=== PATIENT | female | born 1955 | race Caucasian/White ===

== ENCOUNTER → 2016-07-11 | Outpatient (CLI) | payer BC ==
[~2016-07-11] MED LIST: B-COTAB18 PO; CALC1TAB62 PO; CDN30 PO; ESTR1TAB9 PO; GLUCTAB7 PO; MULT-506 PO; OMEG12006 PO
[2016-07-11 14:07] LABS: ALT/SGPT 21 U/L (12-78); AST/SGOT 13 U/L (15-37); BLOOD UREA NITROGEN 12 mg/dl (7-18); BUN/CREATININE RATIO 13.3 (10-20); CALCIUM 8.9 mg/dl (8.5-10.1); CARBON DIOXIDE 27 mmol/L (21-32); CHLORIDE 101 mmol/L (98-107); CHOLESTEROL 163 mg/dl (0-200); CREATININE 0.87 mg/dl (0.60-1.20); GLUCOSE 83 mg/dl (70-99); POTASSIUM 3.8 mmol/L (3.5-5.1); SODIUM 136 mmol/L (136-145)
[2016-07-11 14:08] LABS: ALB/GLOB RATIO 1.1 (0.9-2); ALKALINE PHOSPHATASE 46 U/L (45-117); CHOLESTEROL/HDL RATIO 2.5; HDL CHOLESTEROL 65 mg/dl; LDL CHOLESTEROL CALCULATED 89 mg/dl; TRIGLYCERIDES 45 mg/dl (0-150); VERY LOW DENSITY LIPOPROT CALC 9 mg/dl
== END | disposition home or self-care (01) ==
LOC: C.LABBC 10:53
PROVIDERS: ATTEND Family Medicine
DX: Z11.59 Encounter for screening for other viral diseases (principal); Z13.220 Encounter for screening for lipoid disorders; K58.9 Irritable bowel syndrome, unspecified

== ENCOUNTER → 2016-10-26 | Outpatient (CLI) | payer BC ==
[~2016-10-26] MED LIST changes: +CHOL1000 PO
--- NOTE | 2016-10-27 08:00 | MAMMOGRAPHY REPORT ---
BILATERAL DIGITAL SCREENING MAMMOGRAM WITH CAD: 10/26/2016 CLINICAL HISTORY: Routine screening. Patient has no complaints. TECHNIQUE: Current study was also evaluated with a Computer Aided Detection (CAD) system. Bilateral CC and MLO views were obtained. COMPARISON: Comparison is made to exams dated: 10/21/2015 mammogram, 10/19/2014 mammogram, 10/16/2013 m ammogram, 05/30/2011 mammogram - [facility], 12/30/2008, and 12/25/2007. BREAST COMPOSITION: The tissue of both breasts is heterogeneously dense, which may obscure small mas ses. FINDINGS: No suspicious masses, calcifications, or areas of architectural distortion are noted in ei ther breast. There has been no significant interval change compared to prior exams. Bilateral benign -appearing calcifications are not significantly changed. Asymmetry within the right posterior breast on the cc view is stable. IMPRESSION: ACR BI-RADS CATEGORY 2: BENIGN There is no mammographic evidence of malignancy. A 1 year screening mammogram is recommended. The pa tient will receive written notification of the results. Approximately 10% of breast cancers are not detected with mammography. A negative mammographic report should not delay biopsy if a clinically suggestive mass is present. Sonia Agudelo M.D. /:10/26/2016 13:35:18 Lunchroom Attendant: Xiomara Shaver, [facility] letter sent: Normal 1/2 BI-RADS Code: ACR BI-RADS Category 2: Benign
== END | disposition home or self-care (01) ==
LOC: C.MAMM 13:16
PROVIDERS: ATTEND Obstetrics & Gynecology
DX: Z12.31 Encounter for screening mammogram for malignant neoplasm of breast (principal)

== ENCOUNTER → 2017-01-23 | Outpatient (CLI) | payer BC | END | disposition home or self-care (01) | LOC: C.PAPS 16:50 | PROVIDERS: ATTEND Obstetrics & Gynecology | DX: Z01.419 Encounter for gynecological examination (general) (routine) without abnormal findings (principal); Z90.710 Acquired absence of both cervix and uterus ==

== ENCOUNTER 2017-02-12 14:42 | Inpatient (IN) | payer BC ==
[~2017-02-12] VITALS: Ht 160 cm; Wt 63.5 kg
[~2017-02-12 14:42] MED LIST changes: -CHOL1000 PO
[2017-02-12] MEDS ORDERED: SODIUM CHLORIDE 0.9% 1000ML 1,000 ML IV STA (15:06)
[2017-02-12] MEDS ORDERED: CHOL1000 PO (15:33)
--- NOTE | 2017-02-12 15:36 | EMERGENCY ROOM VISIT NOTE ---
History Report prepared by Jeyson: Sharita Wong Under the Supervision of: Dr. Jamal Ji D.O. First contact with patient: 15:01 Chief Complaint: CARDIAC ASSESSMENT Stated Complaint: VERY LOW PULSE RATE, FEEL HEART BEATING,SOB Nursing Triage Summary: Patient ambulatory to triage, slowly, holding onto the esparza, states "I have been having episodes of being able to hear and feel my heart beat. I have been monitoring my pulse and BP. My pulse is consistently and abnormally low. My blood pressure has been up and down, not consistent at all. I used to see Dr. Honeycutt and I tried to call to get an appointment. They referred me here to the ED when I explained my symptoms to them. I get lightheaded, dizzy and short of breath with the symptoms. I never have had pain with this though." reports that she has had symptoms for several weeks but has been putting them off. History of Present Illness The patient is a 61 year old female who presents to the Emergency Room with complaints of intermittent dizziness and lightheadedness over the past six days. The patient reports that over the past several days she has been experiencing heart palpitations, nausea, shortness of breath, lightheadedness, and dizziness intermittently. She states that she began monitoring her heart rate, but states that it has been consistently lower than normal. The patient states that she consulted her PCP's office today and was instructed to come to the emergency department for further evaluation and treatment by the triage nurse. She states that she takes an estrogen hormone replacement for the past 15 years. She denies any smoking or drinking. The patient denies following with cardiology in the past. She denies any recent rash or tick bites. The patient states that she has noticed her symptoms most with exertion. Source of History: patient Onset: past six days Position: other (global) Quality: other (dizziness and lightheadedness) Timing: intermittent Modifying Factors (Worsening): exertion Associated Symptoms: + SOB, + nausea Note: Associated Symptoms: palpitations Review of Systems See HPI for pertinent positives & negatives. A total of 10 systems reviewed and were otherwise negative. Past Medical & Surgical Medical Problems: (1) No chronic problems Family History No pertinent family history stated. Social History Smoking Status: Former Smoker Alcohol Use: none Drug Use: marijuana Marital Status: Housing Status: lives with family Occupation Status: retired Current/Historical Medications Scheduled B-Complex Vitamins (Vitamin B Complex), 1 TAB PO 3XWK Calcium & Phosphorus W/ Vitami (Calcium), 1 TAB PO DAILY Cholecalciferol (Vitamin D3), 1,000 INTER.UNIT PO DAILY Estradiol & Norethindrone Acet (Estradiol/Norethindrone A), 1 TAB PO DAILY Gfzummcyopj-Vqvqlitlcbc-Eah C- (Glucosamine Chondroitin), 1 TAB PO BID Multivitamin (Multivitamin), 1 TAB PO DAILY Beaumont-3 Fatty Acids (Be[place]umont 3), 2 CAP PO DAILY Allergies Coded Allergies: No Known Allergies (Unverified , 02/12/17) Physical Exam Vital Signs Date Time Temp Pulse Resp B/P (MAP) Pulse Ox O2 Delivery O2 Flow Rate FiO2 02/12/17 16:27 41 16 97 02/12/17 16:12 41 17 99 02/12/17 16:09 145/66 02/12/17 15:57 44 13 99 02/12/17 15:42 43 17 100 02/12/17 15:37 44 02/12/17 15:32 139/53 02/12/17 15:27 41 21 100 02/12/17 15:18 40 02/12/17 15:15 164/73 02/12/17 15:12 43 17 100 02/12/17 15:06 Room Air 02/12/17 14:56 100 Room Air 02/12/17 14:52 37.1 46 20 172/71 100 Room Air Physical Exam GENERAL: Patient is awake, alert, and in no acute distress. Patient is resting comfortably and showing no signs of anxiety EYES: The conjunctivae are clear. The pupils are round and reactive. EARS, NOSE, MOUTH AND THROAT: The nose is without any evidence of any deformity. Mucous membranes are moist tongue is midline NECK: The neck is nontender and supple. RESPIRATORY: Normal respiratory effort is noted there is no evidence of wheezing rhonchi or rales CARDIOVASCULAR: Bradycardic rate noted to auscultation, no murmurs noted to auscultation GASTROINTESTINAL: The abdomen is soft. Bowel sounds are present in all quadrants. Abdomen is nontender MUSCULOSKELETAL/EXTREMITIES: There is no evidence of gross deformity full range of motion is noted in the hips and shoulders SKIN: There is no obvious evidence of any rash. There are no petechiae, pallor or cyanosis noted. NEUROLOGIC: Patient is awake alert and oriented x3 strength is symmetric patellar reflexes are 2+ bilaterally Medical Decision & Procedures ER Provider Diagnostic Interpretation: X-ray results as stated below per interpretation by me and the radiologist. SINGLE VIEW CHEST CLINICAL HISTORY: Generalized abdominal pain. FINDINGS: An AP, portable, upright chest radiograph is compared to study dated 11/22/2015. Correlation is made with chest CT dated 05/19/2014. The examination is degraded by portable technique and patient rotation. The heart is top normal for projection. Chronic interstitial thickening and mild nodularity is similar to previous. No airspace consolidation, large pleural effusion, or pneumothorax is seen. The skeletal structures are osteopenic. The bony thorax is grossly intact. IMPRESSION: No acute cardiopulmonary abnormality. Electronically signed by: Olayinka Castellano M.D. 02/12/2017 3:34 PM Dictated Date/Time: 02/12/2017 3:32 PM Laboratory Results 02/12/17 15:19 Red Blood Count 3.93, Mean Corpuscular Volume 93.9, Mean Corpuscular Hemoglobin 32.6, Mean Corpuscular Hemoglobin Concent 34.7, Mean Platelet Volume 10.1, Neutrophils (%) (Auto) 55.3, Lymphocytes (%) (Auto) 30.4, Monocytes (%) (Auto) 11.1, Eosinophils (%) (Auto) 2.3, Basophils (%) (Auto) 0.7, Neutrophils # (Auto ) 4.71, Lymphocytes # (Auto) 2.59, Monocytes # (Auto) 0.95, Eosinophils # (Auto ) 0.20, Basophils # (Auto) 0.06 02/12/17 15:19 Test 02/12/17 15:19 White Blood Count 8.53 K/uL (4.8-10.8) Red Blood Count 3.93 M/uL (4.2-5.4) Hemoglobin 12.8 g/dL (12.0-16.0) Hematocrit 36.9 % (37-47) Mean Corpuscular Volume 93.9 fL (80-100) Mean Corpuscular Hemoglobin 32.6 pg (25-34) Mean Corpuscular Hemoglobin Concent 34.7 g/dl (32-36) Platelet Count 248 K/uL (130-400) Mean Platelet Volume 10.1 fL (7.4-10.4) Neutrophils (%) (Auto) 55.3 % Lymphocytes (%) (Auto) 30.4 % Monocytes (%) (Auto) 11.1 % Eosinophils (%) (Auto) 2.3 % Basophils (%) (Auto) 0.7 % Neutrophils # (Auto) 4.71 K/uL (1.4-6.5) Lymphocytes # (Auto) 2.59 K/uL (1.2-3.4) Monocytes # (Auto) 0.95 K/uL (0.11-0.59) Eosinophils # (Auto) 0.20 K/uL (0-0.5) Basophils # (Auto) 0.06 K/uL (0-0.2) RDW Standard Deviation 42.6 fL (36.4-46.3) RDW Coefficient of Variation 12.5 % (11.5-14.5) Immature Granulocyte % (Auto) 0.2 % Immature Granulocyte # (Auto) 0.02 K/uL (0.00-0.02) Prothrombin Time 10.6 SECONDS (9.0-12.0) Prothromb Time International Ratio 1.0 (0.9-1.1) Activated Partial Thromboplast Time 24.7 SECONDS (21.0-31.0) Partial Thromboplastin Ratio 1.0 Anion Gap 8.0 mmol/L (3-11) Est Creatinine Clear Calc Drug Dose 59.8 ml/min Estimated GFR () 81.0 Estimated GFR (Non- 69.9 BUN/Creatinine Ratio 10.0 (10-20) Calcium Level 9.0 mg/dl (8.5-10.1) Magnesium Level 2.3 mg/dl (1.8-2.4) Total Bilirubin 0.3 mg/dl (0.2-1) Direct Bilirubin 0.1 mg/dl (0-0.2) Aspartate Amino Transf (AST/SGOT) 17 U/L (15-37) Alanine Aminotransferase (ALT/SGPT) 30 U/L (12-78) Alkaline Phosphatase 59 U/L (45-117) Troponin I 0.042 ng/ml (0-0.045) Total Protein 7.6 gm/dl (6.4-8.2) Albumin 4.0 gm/dl (3.4-5.0) Lipase 132 U/L (73-393) Thyroid Stimulating Hormone (TSH) 4.130 uIu/ml (0.300-4.500) Free Thyroxine 1.02 ng/dl (0.80-1.60) Lyme Disease IgG Antibody NEG (NEG) Lyme Disease IgM Antibody NEG (NEG) Laboratory results per my review. Medications Administered Medications (Trade) Dose Ordered Sig/Maye Route Start Time Stop Time Status Last Admin Dose Admin Sodium Chloride 1,000 ml @ 999 mls/hr Q1H1M STAT IV 02/12/17 15:06 02/12/17 16:06 DC 02/12/17 15:06 999 MLS/HR ECG Indication: palpitations Rate (beats per minute): 42 Rhythm: other (3rd degree heart block) Findings: RBBB (underlying pattern noted), other (no PVCs) Comparison ECG Date: 05/19/12 Change: When compared to EKG done on 05/19/12, changes are new. ED Course 1506: The patient was evaluated in room B4A. A complete history and physical examination were performed. Ordered Sodium Chloride 1000 ml @ 999 mls/hr IV. 1518: I discussed the patients case with Dr. Gil, Cardiology. He is going to come down to evaluate the patient in the department. 1526: I reevaluated the patient and she is doing well. I told her that Dr. Gil from Cardiology would be in to evaluate her. 1625:cc Medical Decision Differential diagnosis: Etiologies such as premature contractions, electrolyte abnormality, cardiac dysrhythmia, thyroid dysfunction, pulmonary embolism, infection, gastrointestinal, as well as others were entertained. Nursing notes reviewed. The patient is a 61-year-old female who presented to the emergency department for an evaluation of palpitations and dizziness upon standing. The patient was found to have third-degree heart block initially. She also had episodes of second-degree heart block type II while she was in the emergency department. The patient is very symptomatic with this rhythm and became orthostatic upon standing. The patient was treated with IV fluids in the emergency department. I discussed the patient's case with the on-call [facility] panel assembler. I also discussed his case with the on-call [facility] hospitalist. I discussed the patient's laboratory and radiographic studies with her. At this time her irregular rhythm appears to be continued and persistent. It is likely she will require a pacemaker at this rhythm does not resolve without intervention. I discussed this with the patient and she was agreeable to further management by the inpatient team. She did not require any atropine or pacing while she was in the emergency department. Medication Reconcilliation Current Medication List: was personally reviewed by me Blood Pressure Screening Patient's blood pressure: Elevated blood pressure Blood pressure disposition: Elevated BP felt to be situational, Did not require urgent referral Consults Time Called: 1510 Consulting Physician: Dr. Gil, Cardiology Returned Call: 1518 I discussed the patients case with Dr. Gil, Cardiology. He is going to come down to evaluate the patient in the department. Additional Consults: Time Called: 1620 Consulted Physician: CAROLINA Willis Returned Call: 1627 Additional Comments: I discussed the patient's case with CAROLINA Willis. He is going to evaluate the patient for further treatment. Impression Primary Impression: Third degree heart block Additional Impressions: Orthostatic hypotension Palpitations Scribe Attestation The scribe's documentation has been prepared under my direction and personally reviewed by me in its entirety. I confirm that the note above accurately reflects all work, treatment, procedures, and medical decision making performed by me. Departure Information Referrals No Doctor, Assigned (PCP) Patient Instructions My [facility] Problem Qualifiers
[2017-02-12 15:42] LABS: PROTHROMBIN TIME (PATIENT) 10.6 SECONDS (9.0-12.0)
[2017-02-12 15:49] LABS: BASO % 0.7 %; BASO ABS # 0.06 K/uL (0-0.2); COMPLETE YES; EOS % 2.3 %; HEMATOCRIT 36.9 % (37-47); IG% 0.2 %; LYMPH % 30.4 %; LYMPH ABS # 2.59 K/uL (1.2-3.4); MEAN CELL VOLUME 93.9 fL (80-100); MEAN CORPUSCULAR HEMOGLOBIN 32.6 pg (25-34); MEAN CORPUSCULAR HGB CONC 34.7 g/dl (32-36); MEAN PLATELET VOLUME 10.1 fL (7.4-10.4); MONO % 11.1 %; NEUT % 55.3 %; PLATELET COUNT 248 K/uL (130-400); RED BLOOD COUNT 3.93 M/uL (4.2-5.4); WHITE BLOOD COUNT 8.53 K/uL (4.8-10.8)
[2017-02-12 15:54] LABS: CREATININE 0.88 mg/dl (0.60-1.20); MAGNESIUM 2.3 mg/dl (1.8-2.4); POTASSIUM 3.6 mmol/L (3.5-5.1)
[2017-02-12 16:03] LABS: THYROID STIMULATING HORMONE 4.13 uIu/ml (0.300-4.500)
--- NOTE | 2017-02-12 16:20 | Cardiology Consultation ---
Cardiology Consultation Date of Consultation: Feb 12, 2017. Requesting Physician: Garrison Reason for Consultation: heart block History of Present Illness The patient is a 61-year-old woman without a known cardiac history who has been experiencing exertional symptoms for several weeks. Patient states that approximately 2 weeks ago she had several days where she had some difficulty with activity. This was manifest primarily by sense of dizziness and dyspnea. She also had an element of fatigue. This was not as severe at rest. She is accustomed to using a blood pressure cuff at home and did notice that her pulse was generally in the 40s during that period of time. The symptoms eventually resolved and for approximately 2 weeks she felt well. Her heart rate also had returned to normal based on her home monitoring. More recently however she has had return of the symptoms along with prominent fatigue. She states that in the morning she is quite fatigued and has some difficulty getting started. With ambulation and certainly with activity such as at ascending stairs or carrying objects she is markedly dyspneic and tired. She also has significant dizziness and lightheadedness. She has not suffered a syncopal episode. These episodes are not associated with significant chest discomfort. She has not had significant chest pain. She was somewhat concerned about Takotsubo's cardiomyopathy based on some reading she had done and the fact that her son was involved in a minor car accident several weeks ago. She denies constitutional symptoms such as recent fevers or chills. She has not had recent viral type symptoms or joint pains. She cannot recall the presence of any rashes recently. She states she is generally not been sick since last year when she had a gastrointestinal illness. She does however lives in the [facility]. She has a daughter who has had Lyme disease but she has not been known to have Lyme disease and actually has been checked in the past with normal titers. Past Medical/Surgical History Allergic rhinitis Depression Hyperlipidemia Interval bowel syndrome Past surgical history None Family History Both father and mother had pacemakers at advanced ages. 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 Review of Systems Patient does report increasing eructation recently. All Other Systems: Reviewed and Negative Allergies Coded Allergies: No Known Allergies (Unverified , 02/12/17) Physical Exam Vital Signs Past 12 Hours Date Time Temp Pulse Resp B/P (MAP) Pulse Ox O2 Delivery O2 Flow Rate FiO2 02/12/17 15:37 44 02/12/17 15:18 40 02/12/17 15:06 Room Air 02/12/17 14:56 100 Room Air 02/12/17 14:52 37.1 46 20 172/71 100 Room Air She is alert and oriented x3. Mood affect appear normal. She answered all questions appropriately. HEENT: Sclerae are anicteric. Pupils are equal and reactive to light and accommodation. Extraocular movements were intact. Neuro: Cranial nerves intact Neck: Examination of the submandibular region did not reveal any significant lymphadenopathy. Carotids are palpable bilaterally and free of bruits on auscultation. There was no evidence of jugular venous distention. The thyroid was not enlarged. Lungs: Lungs are clear to auscultation bilaterally. There are no rales wheezes or rhonchi. She has normal respiratory effort without use of accessory muscles. There is normal pulmonary excursion. Cardiac: The rhythm was regular but slow. S1 and S2 were normal. There are no murmurs on examination. The PMI was not markedly displaced on palpation. Abdomen: The abdomen was soft and nontender. Extremities: Patient has bilateral radial pulses that are equal in intensity. There is no evidence cyanosis or clubbing. There was no evidence of significant peripheral edema bilaterally. Skin: There are no rashes noted on examination today. Data Laboratory Results: Last 24 Hours Test 02/12/17 15:19 White Blood Count 8.53 K/uL Red Blood Count 3.93 M/uL Hemoglobin 12.8 g/dL Hematocrit 36.9 % Mean Corpuscular Volume 93.9 fL Mean Corpuscular Hemoglobin 32.6 pg Mean Corpuscular Hemoglobin Concent 34.7 g/dl Platelet Count 248 K/uL Mean Platelet Volume 10.1 fL Neutrophils (%) (Auto) 55.3 % Lymphocytes (%) (Auto) 30.4 % Monocytes (%) (Auto) 11.1 % Eosinophils (%) (Auto) 2.3 % Basophils (%) (Auto) 0.7 % Neutrophils # (Auto) 4.71 K/uL Lymphocytes # (Auto) 2.59 K/uL Monocytes # (Auto) 0.95 K/uL Eosinophils # (Auto) 0.20 K/uL Basophils # (Auto) 0.06 K/uL RDW Standard Deviation 42.6 fL RDW Coefficient of Variation 12.5 % Immature Granulocyte % (Auto) 0.2 % Immature Granulocyte # (Auto) 0.02 K/uL Prothrombin Time 10.6 SECONDS Prothromb Time International Ratio 1.0 Activated Partial Thromboplast Time 24.7 SECONDS Partial Thromboplastin Ratio 1.0 Sodium Level 140 mmol/L Potassium Level 3.6 mmol/L Chloride Level 108 mmol/L Carbon Dioxide Level 24 mmol/L Anion Gap 8.0 mmol/L Blood Urea Nitrogen 9 mg/dl Creatinine 0.88 mg/dl Est Creatinine Clear Calc Drug Dose 59.8 ml/min Estimated GFR () 81.0 Estimated GFR (Non- 69.9 BUN/Creatinine Ratio 10.0 Random Glucose 97 mg/dl Calcium Level 9.0 mg/dl Magnesium Level 2.3 mg/dl Total Bilirubin 0.3 mg/dl Direct Bilirubin 0.1 mg/dl Aspartate Amino Transf (AST/SGOT) 17 U/L Alanine Aminotransferase (ALT/SGPT) 30 U/L Alkaline Phosphatase 59 U/L Troponin I 0.042 ng/ml Total Protein 7.6 gm/dl Albumin 4.0 gm/dl Lipase 132 U/L Thyroid Stimulating Hormone (TSH) 4.130 uIu/ml Free Thyroxine 1.02 ng/dl Imaging: Single-view chest x-ray did not reveal any acute cardiopulmonary abnormalities EKG: Normal sinus rhythm with complete heart block and incomplete right bundle- branch block Telemetry reviewed: Essentially 2-1 conduction Assessment & Plan 1. Complete heart block: Patient's initial EKG demonstrated complete heart block. Her review of her current monitoring suggests a regular rhythm with 2-1 av sergio conduction. She has some mild baseline abnormalities in the QRS with incomplete right bundle branch block. Her history is quite characteristic of progressive conduction disease. The fact that she has difficulty with exercise would also suggest this is infra-Hisian block. She did not have a significant prodrome or other symptoms that are consistent with a diagnosis of acute Lyme carditis and her Lyme titers are negative. Her thyroid tests are also normal. She is not on medical therapy that would cause AV sergio dysfunction. At this point there is not appear to be an obvious reversible cause and I recommended implantation of a permanent pacemaker. Given the stability of her rhythm at this point and the absence of syncope in her history is seem reasonable to monitor her and planned for device implantation tomorrow morning.
[2017-02-12 16:25] LABS: LYME DISEASE AB IGG NEG (NEG); LYME DISEASE AB IGM NEG (NEG)
[2017-02-12] MEDS ORDERED: NITROGLYCERIN 0.4 MG SL PER TAB CHARGE SL PRN (16:45)
[2017-02-12] MEDS ORDERED: ONDANSETRON INJ 2 MG/ML 2 ML VIAL IV PRN (16:45)
[2017-02-12] MEDS ORDERED: ACETAMINOPHEN IV 100 ML IV PRN (16:45)
[2017-02-12] MEDS ORDERED: ACETAMINOPHEN 325 MG TAB PO PRN (16:45)
--- NOTE | 2017-02-12 17:06 | ECHOCARDIOGRAM REPORT ---
*NOTICE TO RECEIVING CONSTITUTION PARTY AGENCY This information is strictly Confidential and protected under [place] law. [place] law prohibits you from making any further disclosure of this information unless further disclosure is expressly permitted by the written consent of the person to whom it pertains or is authorized by law. A general authorization for the release of medical or other information is not sufficient for this purpose. Hospital accepts no responsibility if the information is made available to any other person, INCLUDING THE PATIENT. Interpretation Summary * Name: KHANH BOWEN Study Date: 02/12/2017 04:30 PM BP: 172/71 mmHg * Patient Location: C.EDB HR: 44 * : 1955 (M/d/yyyy) Gender: Female Height: 53 in * Age: 61 yrs Ethnicity: CA Weight: 145 lb * Ordering Physician: Christopher. Gil MD * Performed By: Mounika Bowen * * Reason For Study: HEART BLOCK * BSA: 1.5 m2 * -- Conclusions -- * Left ventricular systolic function is normal. * Limited views were obtained. Procedure Details * Limited views were obtained. Left Ventricle * The left ventricle is grossly normal size. * There is normal left ventricular wall thickness. * Ejection Fraction = >70 %. * Left ventricular systolic function is normal. * The left ventricular wall motion is normal. Right Ventricle * The right ventricle is grossly normal size. Pericardium/Pleural * There is no pericardial effusion. MMode 2D Measurements and Calculations IVSd 1.3 cm IVSs 1.8 cm LVIDd 4.1 cm LVIDs 1.8 cm LVPWd 0.96 cm LVPWs 2.1 cm IVS/LVPW 1.4 FS 55.7 % EDV(Teich) 75.8 ml ESV(Teich) 10.2 ml EF(Teich) 86.6 % EDV(cubed) 70.8 ml ESV(cubed) 6.2 ml EF(cubed) 91.3 % % IVS thick 35.5 % % LVPW thick 116.6 % LV mass(C)d 163.1 grams LV mass(C)dI 109.6 grams/m\S\2 LV mass(C)s 151.5 grams LV mass(C)sI 101.8 grams/m\S\2 SV(Teich) 65.6 ml SI(Teich) 44.1 ml/m\S\2 SV(cubed) 64.6 ml SI(cubed) 43.4 ml/m\S\2 LA dimension 3.6 cm asc Aorta Diam 3.2 cm LVAd ap4 31.6 cm\S\2 LVLd ap4 7.5 cm EDV(MOD-sp4) 111.8 ml EDV(sp4-el) 112.8 ml LVAs ap4 9.8 cm\S\2 LVLs ap4 5.5 cm ESV(MOD-sp4) 15.8 ml ESV(sp4-el) 14.8 ml EF(MOD-sp4) 85.8 % EF(sp4-el) 86.9 % LVAd ap2 24.5 cm\S\2 LVLd ap2 6.6 cm EDV(MOD-sp2) 74.2 ml EDV(sp2-el) 76.6 ml LVAs ap2 9.5 cm\S\2 LVLs ap2 5.2 cm ESV(MOD-sp2) 14.7 ml ESV(sp2-el) 15.0 ml EF(MOD-sp2) 80.2 % EF(sp2-el) 80.4 % LVLd %diff -13.38 % EDV(MOD-bp) 93.9 ml LVLs %diff -6.04 % ESV(MOD-bp) 15.3 ml EF(MOD-bp) 83.7 % SV(MOD-sp4) 96.0 ml SI(MOD-sp4) 64.5 ml/m\S\2 SV(MOD-sp2) 59.5 ml SI(MOD-sp2) 40.0 ml/m\S\2 SV(MOD-bp) 78.6 ml SI(MOD-bp) 52.8 ml/m\S\2 SV(sp4-el) 98.0 ml SI(sp4-el) 65.9 ml/m\S\2 SV(sp2-el) 61.6 ml SI(sp2-el) 41.4 ml/m\S\2
[2017-02-12 17:10] VITALS: Ht 160 cm; Wt 63.5 kg
[2017-02-12 18:59] VITALS: BP 137/66; PULSE 35; TEMP 37; O2SAT 95
[2017-02-12] MEDS: NSS + 20MEQ KCL 1000ML 1,000 ML IV SCH (19:35)
[2017-02-12 23:38] VITALS: BP 120/45; PULSE 35; TEMP 36.9; O2SAT 97
[2017-02-13] VITALS (13 sets, daily range): BP systolic 109–147; BP diastolic 48–85; PULSE 36–76; TEMP 36.5–37.2; O2SAT 93–99
[2017-02-13] MEDS: NSS + 20MEQ KCL 1000ML 1,000 ML IV SCH ×2 (05:34→15:53)
[2017-02-13 06:20] LABS: BASO % 1.7 %; BASO ABS # 0.11 K/uL (0-0.2); COMPLETE YES; HEMATOCRIT 33.7 % (37-47); IG% 0.3 %; LYMPH % 32.6 %; LYMPH ABS # 2.11 K/uL (1.2-3.4); MEAN CELL VOLUME 94.4 fL (80-100); MEAN CORPUSCULAR HEMOGLOBIN 31.7 pg (25-34); MEAN CORPUSCULAR HGB CONC 33.5 g/dl (32-36); MEAN PLATELET VOLUME 9.9 fL (7.4-10.4); MONO % 9.9 %; NEUT % 49.5 %; PLATELET COUNT 185 K/uL (130-400); RED BLOOD COUNT 3.57 M/uL (4.2-5.4); WHITE BLOOD COUNT 6.47 K/uL (4.8-10.8)
[2017-02-13 06:50] LABS: PROTHROMBIN TIME (PATIENT) 11.1 SECONDS (9.0-12.0)
[2017-02-13 06:55] LABS: BUN/CREATININE RATIO 10.8 (10-20); CREATININE 0.67 mg/dl (0.60-1.20); MAGNESIUM 2.2 mg/dl (1.8-2.4)
--- NOTE | 2017-02-13 08:31 | Progress Note ---
Subjective Date of Service: Feb 13, 2017. Subjective Pt evaluation today including: conversation w/ patient, physical exam, chart review, lab review, review of studies, conversation w/ universal branch consultant, review of inpatient medication list doing ok, no dizziness when in bed Problem List Medical Problems: (1) Orthostatic hypotension Status: Acute (2) Palpitations Status: Acute (3) Third degree heart block Status: Acute Review of Systems Constitutional: No fever, No chills, No sweats, No weight loss, No weakness, No fatigue, No problem reported Eyes: No worsening of vision, No eye pain, No redness, No discharge, No diplopia ENT: No hearing loss, No unusual epistaxis, No nasal symptoms, No sore throat, No tinnitus, No dental problems, No trouble swallowing Respiratory: No cough, No sputum, No wheezing, No shortness of breath, No dyspnea on exertion, No dyspnea at rest, No hemoptysis Cardiac: No chest pain, No orthopnea, No PND, No edema, No claudication, No palpitations Abdomen: No pain, No nausea, No vomiting, No diarrhea, No constipation Musculoskeletal: No joint pain, No muscle pain, No swelling, No calf pain Female : No dysuria, No urinary frequency, No hematuria, No incontinence, No abnormal vaginal bleeding, No vaginal discharge Neurologic: No memory loss, No paralysis, No weakness, No numbness/tingling, No vertigo, No balance problems Psychiatric: No depression symptoms, No anhedonism, No anxiety, No insomnia, No substance abuse Heme: No abnormal bleeding/bruising, No clotting problems, No swollen lymph nodes, No night sweats Endo: No fatigue, No excessive thirst, No excessive urination Skin: No rash, No itch, No new/changing skin lesions, No color change, No bleeding Objective Vital Signs Date Time Temp Pulse Resp B/P (MAP) Pulse Ox O2 Delivery O2 Flow Rate FiO2 02/13/17 07:18 36.8 36 22 109/48 (68) 98 Room Air 02/13/17 04:00 Room Air 02/13/17 03:45 37.0 38 22 111/56 (74) 99 Room Air 02/12/17 23:59 Room Air 02/12/17 23:38 36.9 35 22 120/45 (70) 97 Room Air 02/12/17 20:00 Room Air 02/12/17 18:59 37.0 35 18 137/66 (89) 95 Room Air 02/12/17 18:24 37.1 38 12 154/67 99 02/12/17 18:02 38 12 99 02/12/17 18:01 154/67 02/12/17 17:57 38 12 98 02/12/17 17:52 38 15 98 02/12/17 17:47 40 19 98 02/12/17 17:42 38 10 99 02/12/17 17:37 40 20 99 02/12/17 17:32 40 24 171/62 98 02/12/17 17:27 43 14 99 02/12/17 17:22 39 13 99 02/12/17 17:17 38 17 99 02/12/17 17:12 43 19 99 02/12/17 17:10 Room Air 02/12/17 17:07 43 16 98 02/12/17 17:02 43 18 138/66 02/12/17 16:57 43 18 02/12/17 16:42 42 14 99 02/12/17 16:27 41 16 97 02/12/17 16:12 41 17 99 02/12/17 16:09 145/66 02/12/17 15:57 44 13 99 02/12/17 15:42 43 17 100 02/12/17 15:37 44 02/12/17 15:32 139/53 02/12/17 15:27 41 21 100 02/12/17 15:18 40 02/12/17 15:15 164/73 02/12/17 15:12 43 17 100 02/12/17 15:06 Room Air 02/12/17 14:56 100 Room Air 02/12/17 14:52 37.1 46 20 172/71 100 Room Air Physical Exam General Appearance: WD/WN, no apparent distress Eyes: normal inspection, PERRL, EOMI, sclerae normal ENT: normal ENT inspection, hearing grossly normal, pharynx normal Neck: supple, no adenopathy, thyroid normal, no JVD, no carotid bruits, trachea midline Respiratory/Chest: chest non-tender, lungs clear, normal breath sounds, no respiratory distress, no accessory muscle use Cardiovascular: no edema, no gallop, no JVD, no murmur, + bradycardia Abdomen: normal bowel sounds, non tender, soft, no organomegaly, no pulsatile mass Extremities: normal range of motion, non-tender, normal inspection, no pedal edema, no calf tenderness, normal capillary refill, pelvis stable Neurologic/Psychiatric: process control engineer II-XII nml as tested, no motor/sensory deficits, alert, normal mood/affect, oriented x 3 Skin: normal color, warm/dry, no rash Lymphatic: no adenopathy Laboratory Results Last 24 Hours Test 02/12/17 15:19 02/13/17 05:46 White Blood Count 8.53 K/uL 6.47 K/uL Red Blood Count 3.93 M/uL 3.57 M/uL Hemoglobin 12.8 g/dL 11.3 g/dL Hematocrit 36.9 % 33.7 % Mean Corpuscular Volume 93.9 fL 94.4 fL Mean Corpuscular Hemoglobin 32.6 pg 31.7 pg Mean Corpuscular Hemoglobin Concent 34.7 g/dl 33.5 g/dl Platelet Count 248 K/uL 185 K/uL Mean Platelet Volume 10.1 fL 9.9 fL Neutrophils (%) (Auto) 55.3 % 49.5 % Lymphocytes (%) (Auto) 30.4 % 32.6 % Monocytes (%) (Auto) 11.1 % 9.9 % Eosinophils (%) (Auto) 2.3 % 6.0 % Basophils (%) (Auto) 0.7 % 1.7 % Neutrophils # (Auto) 4.71 K/uL 3.20 K/uL Lymphocytes # (Auto) 2.59 K/uL 2.11 K/uL Monocytes # (Auto) 0.95 K/uL 0.64 K/uL Eosinophils # (Auto) 0.20 K/uL 0.39 K/uL Basophils # (Auto) 0.06 K/uL 0.11 K/uL RDW Standard Deviation 42.6 fL 43.1 fL RDW Coefficient of Variation 12.5 % 12.6 % Immature Granulocyte % (Auto) 0.2 % 0.3 % Immature Granulocyte # (Auto) 0.02 K/uL 0.02 K/uL Prothrombin Time 10.6 SECONDS 11.1 SECONDS Prothromb Time International Ratio 1.0 1.0 Activated Partial Thromboplast Time 24.7 SECONDS 26.3 SECONDS Partial Thromboplastin Ratio 1.0 1.0 Sodium Level 140 mmol/L 140 mmol/L Potassium Level 3.6 mmol/L 4.0 mmol/L Chloride Level 108 mmol/L 111 mmol/L Carbon Dioxide Level 24 mmol/L 21 mmol/L Anion Gap 8.0 mmol/L 8.0 mmol/L Blood Urea Nitrogen 9 mg/dl 7 mg/dl Creatinine 0.88 mg/dl 0.67 mg/dl Est Creatinine Clear Calc Drug Dose 59.8 ml/min 77.4 ml/min Estimated GFR () 81.0 108.4 Estimated GFR (Non- 69.9 93.5 BUN/Creatinine Ratio 10.0 10.8 Random Glucose 97 mg/dl 87 mg/dl Calcium Level 9.0 mg/dl 8.0 mg/dl Magnesium Level 2.3 mg/dl 2.2 mg/dl Total Bilirubin 0.3 mg/dl Direct Bilirubin 0.1 mg/dl Aspartate Amino Transf (AST/SGOT) 17 U/L Alanine Aminotransferase (ALT/SGPT) 30 U/L Alkaline Phosphatase 59 U/L Troponin I 0.042 ng/ml Total Protein 7.6 gm/dl Albumin 4.0 gm/dl Lipase 132 U/L Thyroid Stimulating Hormone (TSH) 4.130 uIu/ml Free Thyroxine 1.02 ng/dl Lyme Disease IgG Antibody NEG Lyme Disease IgM Antibody NEG Assessment and Plan 61 year old female admitted on because of intermittent dizziness and lightheadedness over the past six days was found has 3rd degree AVB 3rd degree: cardio on the case, possible need PPM Allergic rhinitis Depression Hyperlipidemia this above condition is stable, continue current meds discussed with pt, answered all questions Continued [facility] stay due to: multiple IV medications needed Discharge planning: home
[2017-02-13] MEDS: CHOLECALCIFEROL 1000 INTER.UNIT TAB PO SCH (09:00)
[2017-02-13] MEDS: VITAMIN B COMPLEX TAB PO SCH (09:00)
[2017-02-13] MEDS: MULTIVITAMIN TAB PO SCH (09:00)
[2017-02-13] MEDS: CALCIUM 600MG + VIT D 400 IU TAB PO SCH (09:00)
[2017-02-13] MEDS ORDERED: ESTRADIOL PO SCH (09:00)
[2017-02-13] MEDS ORDERED: NORETHINDRONE ACET PO SCH (09:00)
[2017-02-13] MEDS ORDERED: [UNRECOGNIZED DRUG - OTHER] PO SCH (09:00)
--- NOTE | 2017-02-13 13:43 | Procedure Note ---
Pre-Mod Sedation Assessment General Date of Moderate Sedation: Feb 13, 2017. Vital Signs: Vital Signs Past 12 Hours Date Time Temp Pulse Resp B/P (MAP) Pulse Ox O2 Delivery O2 Flow Rate FiO2 02/13/17 11:45 36.8 46 18 139/64 (89) 97 02/13/17 08:00 Room Air 02/13/17 07:18 36.8 36 22 109/48 (68) 98 Room Air 02/13/17 04:00 Room Air 02/13/17 03:45 37.0 38 22 111/56 (74) 99 Room Air Review Airway Class: II Pre-Sedation Airway Assessment Oral Cavity: WNL Able to Visualize Vocal Cords: No Short Thick Neck: No Hx of Sleep Apnea: No Smoking Status: Former Smoker Mallampati Classification: Class II ASA Classification: Class III Procedure Planning Contraindications-for Mod Sed: None Yes Notes The planned sedation has been discussed with the patient and consent obtained. I have identified the patient, determined the appropriateness of sedation and have assessed the patient immediately prior to the procedure. All medicine(s) and interventions are by my order.
[2017-02-13] MEDS ORDERED: MIDAZOLAM HCL 5 MG/ML 1 ML VIAL ONE (13:56)
[2017-02-13] MEDS ORDERED: FENTANYL CITRATE INJ 50 MCG/1 ML 2 ML VIAL ONE (13:56)
[2017-02-13] MEDS ORDERED: LIDOCAINE HCL 1% 20 ML VIAL ONE (14:00)
[2017-02-13] MEDS ORDERED: BACITRACIN 50000 UNIT VIAL ONE (14:00)
--- NOTE | 2017-02-13 14:52 | Procedure Note ---
Procedure Note Date of Service Feb 13, 2017. Procedure Note Procedure performed: Implant of dual chamber pacemaker Staff auto body straightener: Jace Gil MD Indication: Complete Heart Block. The patient is a 61-year-old woman who presented to [facility] with symptoms of exertional intolerance and dizziness. She was discovered to have complete heart block. He is felt to be a good candidate for permanent pacemaker due to symptomatic non reversible AV node dysfunction. Dual-chamber device was selected as she is currently in sinus rhythm which to maintain AV synchrony. Procedure in detail: The patient was informed of the risks benefits and alternatives to the intended procedure and she wished to proceed. She was taken to the electrophysiology suite in a fasting state. A preoperative antibiotic had been administered. The patient was monitored electrocardiographically throughout today's procedure and conscious sedation was administered per protocol. The left upper pectoral area is prepped and draped in usual sterile fashion. This area was anesthetized using subcutaneous menstruation of a xylocaine solution. An incision was made at this site and carried down to the prepectoralis fascia using sharp dissection. Electrocautery was also employed for dissection as well as for hemostasis. A device pocket was fashioned tissues above the pectoralis muscle. Subsequent to this maneuver the left axillary vein was accessed using modified Seldinger technique. Sheaths were placed over guidewires at this site to facilitate passage of the pacing leads to the respective chambers under fluoroscopic guidance. This included right atrial and right ventricular leads. Adequate sensing and threshold parameters were obtained prior to Active fixation of the leads to the endocardial surface. The proximal portion leads were then sutured the prepectoral fascia using nonabsorbable suture. The device pocket was irrigated with antibiotic solution. The leads were then attached to the device. The device and leads were then placed in the pocket and pocket was closed in 3 layers of absorbable suture. Steri-Strips and sterile dressing were applied. The device was tested noninvasively prior to occlusion the procedure. The patient tolerated procedure well there no immediate complications. Equipment used: New pulse generator: Xm1 Tank Driver [employer]. Model number A2DR01 serial number [id number] Right atrial lead: Xm1 Tank Driver [employer]. Model 5. 076. Serial number [id number] Right ventricular lead: Xm1 Tank Driver [employer]. Model 5. 076. Serial number [id number] Measured data: Right atrial lead: P-waves measured 2.4 mV. Pacing threshold was 1 volt at 0.4 milliseconds with a pacing impedance of 621 Ohms Right ventricular lead: R-waves measured 10.6 mV pacing threshold was 0.8 volts at 0.4 milliseconds with a pacing impedance of 928 Ohms Impression: Successful implantation of dual-chamber permanent pacemaker
--- NOTE | 2017-02-13 15:52 | History and Physical ---
History & Physical Date & Time of Service: Feb 13, 2017 at 15:52. The patient was seen and examined on 02/12/17. Chief Complaint: Third Degree Heart Block Primary Care Physician: No Doctor, Assigned History of Present Illness Source: patient, hospital records The patient is a 61-year-old female who presents emergency department with intermittent dizziness, lightheadedness, heart palpitations, nausea, and shortness of breath over the past 6 days. She began to monitor her heart rate, and reports that it been considerably lower than normal. Her PCP advised her to come to the emergency department for assessment. His symptoms are worsened with exertion. Family History Noncontributory Social History Smoking Status: Former Smoker Smokeless Tobacco Use: No Alcohol Use: none Drug Use: marijuana Marital Status: Housing status: lives with family Occupational Status: retired Immunizations History of Influenza Vaccine: Unknown History of Tetanus Vaccine?: Unknown History of Pneumococcal: Unknown History of Hepatitis B Vaccine: Unknown Multi-Drug Resistant Organisms History of MDRO: No Allergies Coded Allergies: No Known Allergies (Unverified , 02/12/17) Home Medications Scheduled B-Complex Vitamins (Vitamin B Complex), 1 TAB PO 3XWK Calcium & Phosphorus W/ Vitami (Calcium), 1 TAB PO DAILY Cholecalciferol (Vitamin D3), 1,000 INTER.UNIT PO DAILY Estradiol & Norethindrone Acet (Estradiol/Norethindrone A), 1 TAB PO DAILY Vgtwtgberth-Zvwfuspzbxj-Mhj C- (Glucosamine Chondroitin), 1 TAB PO BID Multivitamin (Multivitamin), 1 TAB PO DAILY [place]-3 Fatty Acids ([place] 3), 2 CAP PO DAILY Review of Systems The patient denies cough, lower extremity swelling, vision change, hearing change, sore throat, fevers, chills, sweats, weight change, fatigue, nausea, vomiting, diarrhea or constipation, abdominal pain, pelvic pain, blood in urine or stool, dysuria, urinary frequency or urgency, headache, memory loss, rash, abnormal bruising or bleeding, imbalance, focal or generalized weakness, numbness or tingling in arms or legs, generalized arthralgias or myalgias, back or neck pain, or night sweats. The review of systems is otherwise negative other than for that already noted above, and at least 10 systems have been reviewed. Physical Exam Vital Signs Date Time Temp Pulse Resp B/P (MAP) Pulse Ox O2 Delivery O2 Flow Rate FiO2 02/13/17 15:45 67 133/84 (100) 02/13/17 15:30 36.7 62 16 134/84 (101) 98 Room Air 02/13/17 14:54 72 16 154/93 (113) 100 Nasal Cannula 3 02/13/17 14:40 74 16 141/85 (103) 100 Nasal Cannula 3 02/13/17 12:00 Room Air 02/13/17 11:45 36.8 46 18 139/64 (89) 97 02/13/17 08:00 Room Air 02/13/17 07:18 36.8 36 22 109/48 (68) 98 Room Air 02/13/17 04:00 Room Air 02/13/17 03:45 37.0 38 22 111/56 (74) 99 Room Air 02/12/17 23:59 Room Air 02/12/17 23:38 36.9 35 22 120/45 (70) 97 Room Air 02/12/17 20:00 Room Air 02/12/17 18:59 37.0 35 18 137/66 (89) 95 Room Air 02/12/17 18:24 37.1 38 12 154/67 99 02/12/17 18:02 38 12 99 02/12/17 18:01 154/67 02/12/17 17:57 38 12 98 02/12/17 17:52 38 15 98 02/12/17 17:47 40 19 98 02/12/17 17:42 38 10 99 02/12/17 17:37 40 20 99 02/12/17 17:32 40 24 171/62 98 02/12/17 17:27 43 14 99 02/12/17 17:22 39 13 99 02/12/17 17:17 38 17 99 02/12/17 17:12 43 19 99 02/12/17 17:10 Room Air 02/12/17 17:07 43 16 98 02/12/17 17:02 43 18 138/66 02/12/17 16:57 43 18 02/12/17 16:42 42 14 99 02/12/17 16:27 41 16 97 02/12/17 16:12 41 17 99 02/12/17 16:09 145/66 02/12/17 15:57 44 13 99 The patient is awake, well-developed and adequately nourished, alert and oriented 3, normocephalic and atraumatic, lying in bed and in no acute distress. HEENT--PERRL, EOMI, mucous membranes and oropharynx normal. Neck--supple, no JVD or bruits, thyroid normal, trachea midline, no adenopathy. Heart--bradycardic, no murmurs, rubs or gallops. Lungs--clear bilaterally with good air movement, no respiratory distress, no accessory muscle use. Abdomen--normal bowel sounds and soft, nontender and nondistended, no hernias or masses, no organomegaly. Extremities--no cyanosis, clubbing or edema. There are good distal pulses b/l. Dermatologic--normal skin turgor, normal color, warm and dry, no abnormal lymph nodes, no rash. Neurologic--cranial nerves II through XII grossly intact. Rheumatologic--normal range of motion, nontender, muscles and joints. Psychiatric--normal affect. Diagnostics Laboratory Results Results Past 24 Hours Test 02/13/17 05:46 Range/Units White Blood Count 6.47 4.8-10.8 K/uL Red Blood Count 3.57 4.2-5.4 M/uL Hemoglobin 11.3 12.0-16.0 g/dL Hematocrit 33.7 37-47 % Mean Corpuscular Volume 94.4 80-100 fL Mean Corpuscular Hemoglobin 31.7 25-34 pg Mean Corpuscular Hemoglobin Concent 33.5 32-36 g/dl Platelet Count 185 130-400 K/uL Mean Platelet Volume 9.9 7.4-10.4 fL Neutrophils (%) (Auto) 49.5 % Lymphocytes (%) (Auto) 32.6 % Monocytes (%) (Auto) 9.9 % Eosinophils (%) (Auto) 6.0 % Basophils (%) (Auto) 1.7 % Neutrophils # (Auto) 3.20 1.4-6.5 K/uL Lymphocytes # (Auto) 2.11 1.2-3.4 K/uL Monocytes # (Auto) 0.64 0.11-0.59 K/uL Eosinophils # (Auto) 0.39 0-0.5 K/uL Basophils # (Auto) 0.11 0-0.2 K/uL RDW Standard Deviation 43.1 36.4-46.3 fL RDW Coefficient of Variation 12.6 11.5-14.5 % Immature Granulocyte % (Auto) 0.3 % Immature Granulocyte # (Auto) 0.02 0.00-0.02 K/uL Prothrombin Time 11.1 9.0-12.0 SECONDS Prothromb Time International Ratio 1.0 0.9-1.1 Activated Partial Thromboplast Time 26.3 21.0-31.0 SECONDS Partial Thromboplastin Ratio 1.0 Sodium Level 140 136-145 mmol/L Potassium Level 4.0 3.5-5.1 mmol/L Chloride Level 111 98-107 mmol/L Carbon Dioxide Level 21 21-32 mmol/L Anion Gap 8.0 3-11 mmol/L Blood Urea Nitrogen 7 7-18 mg/dl Creatinine 0.67 0.60-1.20 mg/dl Est Creatinine Clear Calc Drug Dose 77.4 ml/min Estimated GFR () 108.4 Estimated GFR (Non- 93.5 BUN/Creatinine Ratio 10.8 10-20 Random Glucose 87 70-99 mg/dl Calcium Level 8.0 8.5-10.1 mg/dl Magnesium Level 2.2 1.8-2.4 mg/dl Diagnostic Radiology Patient Name: KHANH SOLIS Unit Number: [id number] Dictated: 02/12/171531 Transcribed: 02/12/171531 EV Printed Date/Time: [~ rep prt dt]/[~ rep prt tm] [~ rep ct labl] - [~ rep ct ivnm] [facility] [place] [address] Dictated: 02/12/171531 Transcribed: 02/12/171531 EV Printed Date/Time: [~ rep prt dt]/[~ rep prt tm] [~ rep ct labl] - [~ rep ct ivnm] SINGLE VIEW CHEST CLINICAL HISTORY: Generalized abdominal pain. FINDINGS: An AP, portable, upright chest radiograph is compared to study dated 11/22/2015. Correlation is made with chest CT dated 05/19/2014. The examination is degraded by portable technique and patient rotation. The heart is top normal for projection. Chronic interstitial thickening and mild nodularity is similar to previous. No airspace consolidation, large pleural effusion, or pneumothorax is seen. The skeletal structures are osteopenic. The bony thorax is grossly intact. IMPRESSION: No acute cardiopulmonary abnormality. Electronically signed by: Olayinka Castellano M.D. 02/12/2017 3:34 PM Dictated Date/Time: 02/12/2017 3:32 PM The status of this report is Signed. Draft = Not yet reviewed or approved by Radiologist. Signed = Reviewed and approved by Radiologist. <AttendingPhy></AttendingPhy> <FamilyPhy>No Doctor, Assigned</FamilyPhy> < PrimaryPhy>No Doctor, Assigned</PrimaryPhy> <UnitNumber>[id number]</UnitNumber> <VisitNumber>[id number]</VisitNumber> <PatientName>KHANH SOLIS</ PatientName> <DateOfBirth>1955</DateOfBirth> <Location>C.EDB</Location> < ServiceDate>02/12/17</ServiceDate> <MNE>ESINDI</MNE> <OrderingPhy>Jamal Ji D.O.</OrderingPhy> <OrderingPhyMNE>f rep ord dr perez</OrderingPhyMNE> <DictatingPhyMNE>f rep dict dr perez</DictatingPhyMNE> <CCListMNE>f rep ct chris</ CCListMNE> <AdmittingPhyMNE>f pt admit dr perez</AdmittingPhyMNE> <AttendingPhyMNE >f pt attend dr perez</AttendingPhyMNE> <ConsultingPhyMNE>f pt consult dr perez</ConsultingPhyMNE> <FamilyPhyMNE>f pt fam dr perez</FamilyPhyMNE> <OtherPhyMNE>f pt other dr perez</OtherPhyMNE> < PrimaryPhyMNE>f pt prim care dr perez</PrimaryPhyMNE> <ReferringPhyMNE>f pt referring dr perez</ReferringPhyMNE> EKG EKG and telemetry monitoring in the ED show intermittent third-degree alternating with second-degree type II heart block with heart rate in the 30s to low 40s Impression Assessment and Plan Third-degree heart block-- The patient will be admitted to telemetry for serial cardiac enzymes, cardiac rhythm monitoring and a 2-D echocardiogram with Dopplers. Place pacer pads on. 2-D echocardiogram with Dopplers performed in the ED by Dr. Gil from cardiology. Nothing by mouth after midnight NSS with KCl 20 mEq at 100 ML's per hour. Patient will likely require pacer placement in the a.m. Activity will be bedrest with bathroom privileges. Consult cardiology. Level of Care Telemetry Advanced Directives Existing Advance Directive: No Existing Living Will: No Existing Power of Masonry Supervisor: No Resuscitation Status FULL RESUSCITATION VTE Prophylaxis VTE Risk Assessment Done? Y/N: Yes Risk Level: Moderate Given or contraindicated: SCD's Social Service Consult None Apply
[2017-02-13] MEDS ORDERED: OXYCODONE HCL IR 5 MG TAB (IMMEDIATE RELEASE) PO PRN (17:00)
[2017-02-13] MEDS ORDERED: OXYCODONE HCL IR 5 MG TAB (IMMEDIATE RELEASE) ONE (18:08)
[2017-02-13] MEDS: CEFAZOLIN IV 1,000 MG in DEXTROSE 5% 50ML 50 ML IV SCH (21:43)
[2017-02-13] MEDS ORDERED: NURSING VERBAL MED ORDER ONE (23:15)
[2017-02-14 03:17] VITALS: BP 124/77; PULSE 62; TEMP 36.8; O2SAT 98
[2017-02-14] MEDS ORDERED: CEFAZOLIN SOD 1000MG/55 ML D5W IV SCH (06:00)
[2017-02-14] MEDS: CEFAZOLIN IV 1,000 MG in DEXTROSE 5% 50ML 50 ML IV SCH (06:12)
--- NOTE | 2017-02-14 06:51 | DIAGNOSTIC IMAGING REPORT ---
CHEST 2 VIEWS ROUTINE CLINICAL HISTORY: 61 years-old Female presenting with EXACT TIME ORDERED Evaluate for pneumothorax and lead placement. TECHNIQUE: PA and lateral views of the chest were obtained. COMPARISON: 02/12/2017. FINDINGS: Left-sided cardiac pacer with leads to the right atrium and right ventricular apex now in place. Cardiomediastinal silhouette normal. Lungs mildly hyperinflated. No focal infiltrate. No pleural effusion or pneumothorax. Osseous structures normal. Upper abdomen normal. IMPRESSION: 1. Interval placement of 2-lead pacer. No pneumothorax. 2. Mild hyperinflation could suggest underlying emphysema. Electronically signed by: Ravinder Kenny M.D. 02/14/2017 6:49 AM Dictated Date/Time: 02/14/2017 6:48 AM
[2017-02-14 07:20] LABS: PARTIAL THROMBOPLASTIN RATIO 1.1
[2017-02-14 07:25] VITALS: BP_SYST 137; BP_SYST 155; BP_DIAS 75; BP_DIAS 90; PULSE 64; PULSE 73; TEMP 36.7; TEMP 36.8; O2SAT 100; O2SAT 99
[2017-02-14 07:25] LABS: BASO % 0.8 %; BASO ABS # 0.07 K/uL (0-0.2); COMPLETE YES; EOS % 3.5 %; HEMATOCRIT 38.8 % (37-47); IG% 0.2 %; LYMPH % 21.3 %; LYMPH ABS # 1.93 K/uL (1.2-3.4); MEAN CELL VOLUME 95.1 fL (80-100); MEAN CORPUSCULAR HEMOGLOBIN 32.8 pg (25-34); MEAN CORPUSCULAR HGB CONC 34.5 g/dl (32-36); MEAN PLATELET VOLUME 10.1 fL (7.4-10.4); NEUT % 64.2 %; PLATELET COUNT 206 K/uL (130-400); RED BLOOD COUNT 4.08 M/uL (4.2-5.4); WHITE BLOOD COUNT 9.04 K/uL (4.8-10.8)
[2017-02-14 07:44] LABS: BUN/CREATININE RATIO 10.5 (10-20); CALCIUM 8.7 mg/dl (8.5-10.1); CREATININE 0.81 mg/dl (0.60-1.20); MAGNESIUM 2.4 mg/dl (1.8-2.4); POTASSIUM 3.9 mmol/L (3.5-5.1)
[2017-02-14 08:51] LABS: URINE APPEARANCE CLEAR (CLEAR); URINE BILIRUBIN NEG (NEG); URINE COLOR YELLOW; URINE NITRITE NEG (NEG); UROBILINOGEN NEG (NEG)
[2017-02-14 08:52] LABS: MANUAL MICROSCOPIC REQUIRED? NO; REVIEW REQ? NO
[2017-02-14] MEDS: CALCIUM 600MG + VIT D 400 IU TAB PO SCH (09:07)
[2017-02-14] MEDS: VITAMIN B COMPLEX TAB PO SCH (09:07)
[2017-02-14] MEDS: CHOLECALCIFEROL 1000 INTER.UNIT TAB PO SCH (09:08)
[2017-02-14] MEDS: MULTIVITAMIN TAB PO SCH (09:08)
--- NOTE | 2017-02-14 09:28 | Cardiology Follow-Up ---
Subjective Date of Service: Feb 14, 2017. Pt evaluation today including: conversation w/ patient, physical exam, chart review, lab review, review of studies, review of inpatient medication list History of Present Illness The patient has this morning. She notices the appreciable difference in her symptoms with implantation of the device. She has been ambulatory to the bathroom and has not have the dizziness or dyspnea. She has minimal discomfort at the implant site currently. Social History Smoking Status: Former Smoker History of Alcohol Use: No Review of Systems Respiratory: No cough, No sputum, No wheezing, No shortness of breath, No dyspnea on exertion, No dyspnea at rest, No hemoptysis Cardiac: No chest pain, No orthopnea, No PND, No edema, No claudication, No palpitations Patient does report increasing eructation recently. Objective Vital Signs Past 12 Hours Date Time Temp Pulse Resp B/P (MAP) Pulse Ox O2 Delivery O2 Flow Rate FiO2 02/14/17 08:59 Room Air 02/14/17 07:25 36.8 64 18 137/75 (95) 100 Room Air 02/14/17 07:25 36.7 73 16 155/90 (111) 99 Room Air 02/14/17 04:00 Room Air 02/14/17 03:17 36.8 62 19 124/77 (93) 98 Room Air 02/13/17 23:59 Room Air 02/13/17 23:30 36.8 69 18 131/77 (95) 97 Room Air Last Recorded Weight-Kilograms: 63.500 Physical Exam She is alert and oriented x3. Mood affect appear normal. She answered all questions appropriately. HEENT: Sclerae are anicteric. Pupils are equal and reactive to light and accommodation. Extraocular movements were intact. Neuro: Cranial nerves intact Chest: Implant site clean dry and intact. Mild ecchymosis at the inferior margin. No drainage. No hematoma.. Data Laboratory Results: Last 24 Hours Test 02/14/17 06:42 02/14/17 07:28 White Blood Count 9.04 K/uL Red Blood Count 4.08 M/uL Hemoglobin 13.4 g/dL Hematocrit 38.8 % Mean Corpuscular Volume 95.1 fL Mean Corpuscular Hemoglobin 32.8 pg Mean Corpuscular Hemoglobin Concent 34.5 g/dl Platelet Count 206 K/uL Mean Platelet Volume 10.1 fL Neutrophils (%) (Auto) 64.2 % Lymphocytes (%) (Auto) 21.3 % Monocytes (%) (Auto) 10.0 % Eosinophils (%) (Auto) 3.5 % Basophils (%) (Auto) 0.8 % Neutrophils # (Auto) 5.80 K/uL Lymphocytes # (Auto) 1.93 K/uL Monocytes # (Auto) 0.90 K/uL Eosinophils # (Auto) 0.32 K/uL Basophils # (Auto) 0.07 K/uL RDW Standard Deviation 43.3 fL RDW Coefficient of Variation 12.6 % Immature Granulocyte % (Auto) 0.2 % Immature Granulocyte # (Auto) 0.02 K/uL Prothrombin Time 11.0 SECONDS Prothromb Time International Ratio 1.0 Activated Partial Thromboplast Time 27.3 SECONDS Partial Thromboplastin Ratio 1.1 Sodium Level 137 mmol/L Potassium Level 3.9 mmol/L Chloride Level 106 mmol/L Carbon Dioxide Level 26 mmol/L Anion Gap 6.0 mmol/L Blood Urea Nitrogen 9 mg/dl Creatinine 0.81 mg/dl Est Creatinine Clear Calc Drug Dose 63.8 ml/min Estimated GFR () 89.6 Estimated GFR (Non- 77.3 BUN/Creatinine Ratio 10.5 Random Glucose 94 mg/dl Calcium Level 8.7 mg/dl Magnesium Level 2.4 mg/dl Urine Color YELLOW Urine Appearance CLEAR Urine pH 7.0 Urine Specific [place] 1.010 Urine Protein NEG Urine Glucose (UA) NEG Urine Ketones NEG Urine Occult Blood NEG Urine Nitrite NEG Urine Bilirubin NEG Urine Urobilinogen NEG Urine Leukocyte Esterase NEG Imaging: Chest x-ray demonstrated stable lead position. No pneumothorax. EKG: A sensed V paced. Telemetry reviewed: No arrhythmias. A complete device interrogation was performed. There is normal sensing on the a lead. No intrinsic R waves were seen. There is normal thresholds on both leads. Normal device function. Assessment and Plan 1. Complete heart block: Unclear etiology. Patient underwent implantation of dual-chamber permanent pacemaker yesterday. No complications. She is feeling well currently. The device appears to be functioning well on her chest x-ray is unremarkable. At this point I feel she is safe for discharge from a cardiac standpoint. I would recommend keeping the wound dry for 1 weeks time and the Steri-Strips intact until follow-up at that time. She should follow-up in the Cardiology Clinic within 1 week for a wound checked. She should refrain from lifting left arm above her shoulder behind her neck for 6 weeks.
[2017-02-14 11:20] VITALS: BP 134/78; PULSE 65; TEMP 36.9; O2SAT 97
--- NOTE | 2017-02-14 12:07 | Discharge Instructions ---
Discharge Instructions Date of Service Feb 14, 2017. Admission Reason for Admission: Third Degree Heart Block Discharge Discharge Diagnosis / Problem: Complete heart block: Discharge Goals Goal(s): Decrease discomfort, Improve function, Increase independence, Improve disease control, Improve nutritional status, Learn about illness, Diagnostic testing, Therapeutic intervention, Prevent Disease Progression, Specific goals Activity Recommendations Activity Limitations: as noted below . Instructions / Follow-Up Instructions / Follow-Up you have complete heart block: s/p implantation of dual-chamber permanent pacemaker follow up with cardiology recommended keeping the wound dry for 1 weeks time and the Steri-Strips intact until follow- up at that time. You need to follow-up in the Cardiology Clinic within 1 week for a wound checked. You should should refrain from lifting left arm above her shoulder behind her neck for 6 weeks. - you need to follow up with your primary care physician in 1 week, - take medication as instructed, never overdose or any misuse, or take with alcohol, because misuse of medicine may cause organ damage or , call your primary care physician if have questions of medicaitons. - call your primary care physician OR go to local emergency room if has any fever/chill, chest pain, shortness of breathing, nausea/vomiting/abdominal pain , facial droop/slurry speech/local weakness, or if has any questions. - fall precaution - diet as instructed - you need to follow up with your subspecialist - you should understand that it is important to follow up the above instruction , and "not following the above instruction" may cause delayed or missed care of your medical conditions which may cause permanent organ damage and even . Current Hospital Diet Patient's current hospital diet: Regular Diet Discharge Diet Recommended Diet: Regular Diet Pending Studies Studies pending at discharge: no Medical Emergencies . Who to Call and When: Medical Emergencies: If at any time you feel your situation is an emergency, please call 911 immediately. . Non-Emergent Contact Non-Emergency issues call your: Primary Care Provider, Airframe Technician . . "Provider Documentation" section prepared by Jovani Adhikari. . VTE Core Measure Inpt VTE Proph given/why not?: SCD's
[2017-02-14 12:30] VITALS: BP 134/78; PULSE 65; TEMP 36.9; O2SAT 97
--- NOTE | 2017-02-14 16:07 | Discharge Summary ---
Discharge Summary Date of Service Feb 14, 2017. Discharge Summary Admission Date: Feb 12, 2017 at 16:41 Discharge Date: Feb 14, 2017 Principal Diagnosis: complete heart block: Problems/Secondary Diagnoses: s/p implantation of dual-chamber permanent pacemaker f Immunizations: Have You Had Influenza Vaccine: Unknown History of Tetanus Vaccine?: Unknown History of Pneumococcal: Unknown History of Hepatitis B Vaccine: Unknown Procedures: complete heart block, S/P permanent pacemaker Consultations: Media Liaison Officer Medication Reconciliation Continued Medications: B-Complex Vitamins (Vitamin B Complex) 1 Tab Tab 1 TAB PO 3XWK Calcium & Phosphorus W/ Vitami (Calcium) 1 Tab Tab 1 TAB PO DAILY Cholecalciferol (Vitamin D3) 1,000 Unit Tab 1000 INTER.UNIT PO DAILY, TAB 3 Refills Estradiol & Norethindrone Acet (Estradiol/Norethindrone A) 1 Tab Tab 1 TAB PO DAILY Kjxigdhfobb-Mheqyognhqx-Pah C- (Glucosamine Chondroitin) 1 Tab Tab 1 TAB PO BID Multivitamin (Multivitamin) Tab 1 TAB PO DAILY, TAB [place]-3 Fatty Acids ([place] 3) 1 Cap Cap 2 CAP PO DAILY Discharge Exam Feeling much better, more energetic no any complaints , denied dizziness Review of Systems: Constitutional: No fever, No chills, No sweats, No weight loss, No weakness , No fatigue, No problem reported Eyes: No worsening of vision, No eye pain, No redness, No discharge, No diplopia, No problem reported ENT: No hearing loss, No unusual epistaxis, No nasal symptoms, No sore throat, No tinnitus, No dental problems, No trouble swallowing, No problem reported Respiratory: No cough, No sputum, No wheezing, No shortness of breath, No dyspnea on exertion, No dyspnea at rest, No hemoptysis, No problem reported Cardiovascular: No chest pain, No orthopnea, No PND, No edema, No claudication, No palpitations, No problem reported Abdomen: No pain, No nausea, No vomiting, No diarrhea, No constipation, No GI bleeding, No problem reported Musculoskeletal: No joint pain, No muscle pain, No swelling, No calf pain, No problem reported Genitourinary - Female: No dysuria, No urinary frequency, No urinary urgency , No urinary incontinence, No urinary retention, No hematuria, No dysmenorrhea, No menorrhagia, No metrorrhagia, No rash, No vaginal bleeding, No vaginal discharge, No vaginal itching, No vulvodynia, No , No problem reported Neurologic: No memory loss, No paralysis, No weakness, No numbness/tingling , No vertigo, No balance problems, No problem reported Endocrine: No fatigue, No excessive thirst, No excessive urination, No problem reported Hematologic / Lymphatic: No abnormal bleeding/bruising, No clotting problems , No swollen lymph nodes, No night sweats, No problem reported Integumentary: No rash, No itch, No new/changing skin lesions, No color change, No bleeding, No problem reported Physical Exam: General Appearance: WD/WN, no apparent distress Eyes: normal inspection, PERRL, EOMI ENT: normal ENT inspection, hearing grossly normal, TMs normal, + pertinent finding (left anterior chest wall pacer in place, incision looks good) Neck: supple, no adenopathy Respiratory/Chest: chest non-tender, lungs clear, normal breath sounds, no respiratory distress, + decreased breath sounds Cardiovascular: regular rate, rhythm, no edema, no gallop, no JVD Abdomen / GI: normal bowel sounds, non tender, soft, no organomegaly, no pulsatile mass Extremities: normal inspection, no calf tenderness, normal capillary refill Neurologic/Psychiatric: grievance manager II-XII nml as tested, no motor/sensory deficits , alert, normal mood/affect, normal reflexes Hospital Course 61 year old female admitted on because of intermittent dizziness and lightheadedness over the past six days was found has 3rd degree AVB 3rd degree: cardio on the case, s/p implantation of dual-chamber permanent pacemaker on 02/13/2017, tolerated well, today has no complaint Allergic rhinitis Depression Hyperlipidemia this above condition is stable, continue current meds Instructions / Follow-Up you have complete heart block: s/p implantation of dual-chamber permanent pacemaker follow up with cardiology recommended keeping the wound dry for 1 weeks time and the Steri-Strips intact until follow- up at that time. You need to follow-up in the Cardiology Clinic within 1 week for a wound checked. You should should refrain from lifting left arm above her shoulder behind her neck for 6 weeks. - you need to follow up with your primary care physician in 1 week, - take medication as instructed, never overdose or any misuse, or take with alcohol, because misuse of medicine may cause organ damage or , call your primary care physician if have questions of medicaitons. - call your primary care physician OR go to local emergency room if has any fever/chill, chest pain, shortness of breathing, nausea/vomiting/abdominal pain , facial droop/slurry speech/local weakness, or if has any questions. - fall precaution - diet as instructed - you need to follow up with your subspecialist - you should understand that it is important to follow up the above instruction , and "not following the above instruction" may cause delayed or missed care of your medical conditions which may cause permanent organ damage and even . Current Hospital Diet Total Time Spent: Greater than 30 minutes This includes examination of the patient, discharge planning, medication reconciliation, and communication with other providers. Discharge Instructions Please refer to the electronic Patient Visit Report (Discharge Instructions) for additional information. Additional Copies To Jace Gil MD
[2017-02-14 18:35] LABS: EHRLICHIA CHAFF IGG AB <1:64 (<1:64); EHRLICHIA CHAFF IGM AB <1:20 (<1:20)
== END 2017-02-14 13:12 | disposition home or self-care (01) | DRG 244 ==
LOC: C.EDB 14:44 → C.2T 16:41 → ENRESERV 17:22
PROVIDERS: ADMIT Hospitalist; ATTEND Hospitalist
PROC: 0JH606Z Insertion of Pacemaker, Dual Chamber into Chest Subcutaneous Tissue and Fascia, Open Approach (ICD-10-PCS; principal; 2017-02-13 14:00)
PROC: 02HK3JZ Insertion of Pacemaker Lead into Right Ventricle, Percutaneous Approach (ICD-10-PCS; principal; 2017-02-13 14:00)
PROC: 02H63JZ Insertion of Pacemaker Lead into Right Atrium, Percutaneous Approach (ICD-10-PCS; principal; 2017-02-13 14:00)
DX: I44.2 Atrioventricular block, complete (principal); I95.1 Orthostatic hypotension; F32.9 Major depressive disorder, single episode, unspecified; J30.9 Allergic rhinitis, unspecified; E78.5 Hyperlipidemia, unspecified; Z87.891 Personal history of nicotine dependence; K58.9 Irritable bowel syndrome, unspecified

== ENCOUNTER → 2017-07-24 | Outpatient (CLI) | payer OTHER ==
[~2017-07-24] MED LIST changes: -CDN30 PO; +CHOL1000 PO
--- NOTE | 2017-07-24 15:46 | DIAGNOSTIC IMAGING REPORT ---
CHEST 2 VIEWS ROUTINE HISTORY: 62 years-old Female R05 Cough acute cough COMPARISON: Chest radiographs 02/14/2017 TECHNIQUE: PA and lateral views of the chest FINDINGS: Hyperinflation with increased lucency of the lungs suggests emphysema. There is no pneumothorax, pleural effusion, focal airspace consolidation or overt pulmonary edema. Cardiomediastinal and hilar silhouettes are within normal limits. Left subclavian pacer is noted with leads unchanged. There is mild levoscoliosis of the upper thoracic spine. Degenerative changes of the spine and shoulders are noted. IMPRESSION: 1. No acute process. 2. Hyperinflation with suggested emphysema. The above report was generated using voice recognition software. It may contain grammatical, syntax or spelling errors. Electronically signed by: Cole Palmer M.D. 07/24/2017 3:45 PM Dictated Date/Time: 07/24/2017 3:43 PM
== END | disposition home or self-care (01) ==
LOC: C.RAD1850 15:26
PROVIDERS: ATTEND Nurse Practitioner Family
DX: R05 Cough (principal)

== ENCOUNTER → 2017-08-21 | Outpatient (CLI) | payer OTHER, BC ==
[2017-08-21 12:28] LABS: BASO % 0.5 %; BASO ABS # 0.04 K/uL (0-0.2); EOS % 2.1 %; EOS ABS # 0.18 K/uL (0-0.5); HEMATOCRIT 38.1 % (37-47); HEMOGLOBIN 12.9 g/dL (12.0-16.0); IG# 0.02 K/uL (0.00-0.02); LYMPH % 21.4 %; LYMPH ABS # 1.81 K/uL (1.2-3.4); MEAN CELL VOLUME 95.5 fL (80-100); MEAN CORPUSCULAR HEMOGLOBIN 32.3 pg (25-34); MEAN CORPUSCULAR HGB CONC 33.9 g/dl (32-36); MONO % 7.3 %; MONO ABS # 0.62 K/uL (0.11-0.59); NEUT % 68.5 %; NEUT ABS # 5.79 K/uL (1.4-6.5); PLATELET COUNT 304 K/uL (130-400); RED CELL DISTRIBUTION WIDTH CV 13.3 % (11.5-14.5); RED CELL DISTRIBUTION WIDTH SD 46.6 fL (36.4-46.3); WHITE BLOOD COUNT 8.46 K/uL (4.8-10.8)
[2017-08-21 12:49] LABS: ALT/SGPT 18 U/L (12-78); AST/SGOT 13 U/L (15-37); BLOOD UREA NITROGEN 12 mg/dl (7-18); CALCIUM 8.9 mg/dl (8.5-10.1); CARBON DIOXIDE 26 mmol/L (21-32); CHOLESTEROL 150 mg/dl (0-200); CREATININE 0.75 mg/dl (0.60-1.20); GLUCOSE 86 mg/dl (70-99); POTASSIUM 3.6 mmol/L (3.5-5.1); SODIUM 135 mmol/L (136-145)
[2017-08-21 12:52] LABS: ALKALINE PHOSPHATASE 52 U/L (45-117); LDL CHOLESTEROL CALCULATED 88 mg/dl; TOTAL PROTEIN 7.6 gm/dl (6.4-8.2)
== END | disposition home or self-care (01) ==
LOC: C.LAB1850 09:51
PROVIDERS: ATTEND Neuromusculoskeletal Medicine & OMM
DX: Z00.00 Encounter for general adult medical examination without abnormal findings (principal)

== ENCOUNTER 2021-07-05 18:43 | Inpatient (IN) ==
[2021-07-05] MEDS ORDERED: SODIUM CHLORIDE 0.9% 1000ML 1,000 ML IV STA (19:00)
[2021-07-05] MEDS ORDERED: ONDANSETRON INJ 2 MG/ML 2 ML VIAL IV STA (19:00)
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
[2021-07-05 19:28] LABS: Hematocrit (blood only) 30.5 % (37-47); Hemoglobin 10.9 g/dL (12.0-16.0); Mean Corpuscular Hemoglobin 32.9 pg (25-34); Mean Corpuscular Hgb Conc 35.7 g/dL (32-36); Mean Corpuscular Volume 92.1 fL (80-100); Mean Platelet Volume 9.6 fL (7.4-10.4); Platelet Count 288 K/uL (130-400); RDW Coefficient of Variation 13.2 % (11.5-14.5); RDW Standard Deviation 44.8 fL (36.4-46.3); Red Blood Count 3.31 M/uL (4.2-5.4)
[2021-07-05 19:33] LABS: iSTAT Creatinine 0.6 mg/dl (0.6-1.3); iSTAT Hemoglobin 12.2 g/dl (12.0-16.0); iSTAT Ionized Calcium 1.12 mmol/l (1.12-1.32); iSTAT Potassium 3.3 mmol/L (3.3-5.0)
[2021-07-05] MEDS ORDERED: MoRPHine SULFATE 2 MG/ML CARP IV STA ×2 (19:44→20:34)
[2021-07-05 19:46] LABS: Alanine Aminotransferase 67 U/L (7-52); Albumin Level 3.7 gm/dl (3.4-5.0); Alkaline Phosphatase 126 U/L (34-104); Anion Gap 15 (3-11); Aspartate Aminotransferase 58 U/L (13-39); BUN Creatinine Ratio 22.5 (10-20); Bilirubin,Total 0.9 mg/dl (0.2-1.0); Blood Urea Nitrogen 18 mg/dl (6-23); Calcium 9.4 mg/dl (8.5-10.1); Carbon Dioxide 21 mmol/L (21-32); Chloride 92 mmol/L (98-107); Est GFR (African American) 87.8 ml/min; Est GFR (Non-African American) 75.8 ml/min; Globulin 3.6 gm/dl (2.5-4.0); Glucose 132 mg/dl (70-99(Fasting)); Lipase 3 U/L (11-82); Potassium 3.3 mmol/L (3.5-5.1); Sodium 128 mmol/L (136-145); Total Protein 7.3 gm/dl (6.0-8.3)
[2021-07-05] MEDS ORDERED: OPTIRAY 320 100ml IV ONE (19:48)
[2021-07-05 19:55] LABS: Basophils # (auto) 0.01 K/uL (0-0.2); Basophils % (auto) 0.1 %; Immature Granulocytes # (auto) 0.07 K/uL (0.00-0.02); Immature Granulocytes % (auto) 0.4 %; Lymphocytes # (auto) 1.75 K/uL (1.2-3.4); Lymphocytes % (auto) 9.4 %; Monocytes % (auto) 5.9 %; Neutrophils # (auto) 15.67 K/uL (1.4-6.5); Neutrophils % (auto) 84.2 %
--- NOTE | 2021-07-05 20:20 | CT Scan Report ---
CT OF THE ABDOMEN AND PELVIS WITH CONTRAST CLINICAL HISTORY: Left-sided abdominal pain. COMPARISON STUDY: Chest CT May 20, 2014. TECHNIQUE: Following IV administration of 92 mL of Optiray, axial images of the abdomen and pelvis we re obtained from the lung bases to the proximal femurs. Images were reviewed in the axial, sagittal, and coronal planes. IV contrast was administered without complication. Automated exposure control wa s utilized for the study. A dose lowering technique was utilized adhering to the principles of ALARA . CT DOSE: 291.29 mGy.cm FINDINGS: Trace bilateral pleural effusions within the lower chest are noted as well as interlobular septal thickening consistent with pulmonary edema. There is a possible 4 mm lingular nodule on axial image 36 of 396. Small hiatal hernia No pneumatosis, free air or portal venous gas is present. Pacer leads are partially imaged. Note is made of a 5.8 x 5.7 cm hypodense segment 8 mass within the right hepatic dome. This mass has irregular peripheral enhancement as well as nodular enhancing septations . This mass is new since chest CT of May 20, 2014. No additional hepatic lesions are present. Ghada er morphology is normal. Liver is mildly enlarged. The gallbladder is distended. There is trace peric holecystic fluid. No biliary or pancreatic ductal dilatation is present. No peripancreatic infiltrati on. Spleen, adrenal glands and kidneys are unremarkable. No hydronephrosis. Moderate diverticulosis i s noted without evidence for acute diverticulitis. There is no bowel obstruction. There is subtle mes enteric stranding associated with jejunal loops within the left mid abdomen. No abdominal or pelvic l ymphadenopathy. No suspicious lesions are identified within the visualized skeletal structures. Sever e left hip osteoarthritis is noted. Appendix is normal. IMPRESSION: 1. Mild mesenteric stranding associated with jejunal loops within left mid abdomen. This represents a nonspecific enteritis. 2. 5.8 x 5.7 cm right hepatic dome mass which is new since chest CT of May 20, 2014. This lesion has irregular peripheral enhancement as well as nodular enhancing septations. This mass is suspicious for a neoplasm and favors a primary liver malignancy over metastatic disease. Nonemergent liver prot ocol CT or MRI is recommended for further evaluation. 3. Distended gallbladder with trace pericholecystic fluid. A right upper quadrant ultrasound could be obtained to exclude acute cholecystitis although no pericholecystic infiltration. 4. Mild interstitial pulmonary edema with trace bilateral pleural effusions. 5. Colonic diverticulosis. No evidence for acute diverticulitis. ACT 112: Positive. There are findings on this exam that require communication between the performing entity and the patient following Patient Test Result [place] Act ([place] Act 112) guidelines. Electronically signed by: Sawyer Rivera M.D. 07/05/2021 8:18 PM
[2021-07-05] MEDS ORDERED: PIPERACILL/TAZOBAC CONSULT ACTIVE PRN (20:34)
[2021-07-05] MEDS ORDERED: PIPERACILLIN/TAZOBACTAM 4.5 GM/120 ML BAG IV ONE (20:34)
[2021-07-05] MEDS ORDERED: fentaNYL citrate 100 MCG/2 ML VIAL IV STA (21:45)
[2021-07-05 21:49] LABS: Appearance Urine Clear (Clear); Bacteria Urine Automated Negative (Negative); Bilirubin Urine Negative (Negative); Blood Urine Negative (Negative); Color Urine Yellow; Epithelial Cell Urine Auto >30 /lpf (0-5); Glucose Urine UA Negative (Negative); Ketones Urine Trace (Negative); Leukocyte Esterase Urine Negative (Negative); Nitrite Urine Positive (Negative); Protein Urine 2+ (Negative); Urobilinogen Urine Negative (Negative)
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
[2021-07-05 21:57] LABS: Specific Gravity Urine > 1.045 (1.000-1.030)
[2021-07-05 22:10] LABS: RBC Urine Automated 0-4 /hpf (0-4)
[2021-07-05 22:11] LABS: Cast Urine Automated 0 /lpf (0-5)
[2021-07-05 22:28] LABS: Magnesium 1.6 mg/dl (1.7-2.4); Phosphorus 2.1 mg/dl (2.5-4.9)
[2021-07-05] MEDS ORDERED: LACTATED RINGER'S 1,000 ML IV SCH (22:45)
[2021-07-05] MEDS ORDERED: MAGNESIUM SULFATE 1GM / D5W BAG IV ONE (22:46)
[2021-07-05] MEDS: MAGNESIUM SULFATE / D5W 1 GM/100 ML BAG IV SCH (23:04)
[2021-07-06 01:04] LABS: BUN Creatinine Ratio 25.4 (10-20); Calcium 8.9 mg/dl (8.5-10.1); Creatinine Clr Calc Pharmacy 75.5 ml/min; Est GFR (African American) 104.7 ml/min; Est GFR (Non-African American) 90.3 ml/min; Potassium 3.3 mmol/L (3.5-5.1)
[2021-07-06] MEDS ORDERED: MELATONIN 3 MG TAB PO PRN (01:34)
[2021-07-06] MEDS ORDERED: ACETAMINOPHEN 325 MG TAB PO PRN (01:34)
[2021-07-06] MEDS: POTASSIUM CHLORIDE / WTR 10 MEQ/100 ML PLCT IV SCH ×2 (01:53→03:04)
[2021-07-06] MEDS: HYDROmorphone INJ 0.5 MG/0.5 ML SYR IV PRN ×3 (02:18→21:56)
[2021-07-06] MEDS: NSS + 20MEQ KCL 20 MEQ/1,000 ML BAG IV SCH ×3 (02:21→17:35)
[2021-07-06] MEDS: PIPERACILLIN/TAZOBACTAM 3.375 GM in DEXTROSE 5% 100 ML IV SCH ×2 (02:22→11:00)
[2021-07-06] MEDS: MAGNESIUM SULFATE / D5W 1 GM/100 ML BAG IV SCH (02:41)
--- NOTE | 2021-07-06 06:58 | Hospitalist Progress Note ---
Date of Service July 06, 2021 Assessment & Plan (1) Abdominal pain: Plan: Avril Bowen is a 66yo female with PMHx significant for complete heart block (with PPM), chronic back pain, generalized somatic dysfunction and depression who presented to [facility] ED on 07/05 for nausea, vomiting, decreased appetite and upper abdominal pain x5 days. Abdominal Pain; Nausea/Vomiting; Decreased Appetite; Dehydration The above symptoms in addition to positive Monreal sign, leukocytosis (with neutrophilic predominance and left shift) and distended gallbladder with trace pericholecystic fluid are suspicious for acute cholecystitis. However no gallstones visualized - requires further evaluation. Of note, CT A/P also showed evidence of enteritis which may be cause of these symptoms - HIDA scan ordered - consider GI consultation pending results - ordered stool studies as well, including c. diff (although low suspicion of this given no diarrhea) - Zosyn started in the ED - will continue - remain NPO for now - PRN Zofran for nausea - PRN Tylenol for pain Hyponatremia Suspect hypovolemic hypotonic hyponatremia as well as hypokalemia and hypomagnesemia 2/2 dehydration and vomiting in setting of above. - Na 128 on arrival - will re-check now - Mg 1.6 - ordered 2g IV - K 3.3 - ordered K-rider x2 - continue IVFs with LR @125cc/hr - trend BMP/Mg in AM Transaminitis May be 2/2 liver disease/mass as well as possible biliary duct obstruction, although no duct dilation or gallbladder stones visualized on CT A/P. - HIDA scan as stated above - trend LFTs in AM UTI Dysuria/urinary frequency, UA positive for nitrites. Suspect UTI. - urine cx pending - continue Zosyn as stated above Liver Mass Night sweats and chills x several months, with CT A/P showing 5.8x5.7cm right hepatic dome mass (new since 2014) with irregular peripheral enhancement and nodular enhancing septations suspicious for neoplasm. No mets seen on CT A/P and no symptoms of bone/brain/lung metastasis. Requires further evaluation, and patient would like the evaluation done. - patient reports negative HepC ab testing as outpatient - consider GI consult pending HIDA scan as stated above - will hold on Oncology consultation for now, in light of more acute problems stated above Depresison - continue home Amitriptyline FEN/GI: NPO, LR @125cc/hr DVT Prophylaxis: Lovenox 40mg SQ Q24H Code Status: full code Disposition: med/surg with tele (2) Nausea: (3) Acute dehydration: (4) Acute hyponatremia: (5) Leukocytosis: (6) Liver mass: (7) UTI (urinary tract infection): (8) Depression: (9) Pacemaker: (10) Hypokalemia: (11) Hypomagnesemia: (12) Transaminitis: Admission and Anticipated Discharge Date Admission Date: July 05, 2021 Results & Data Results & Data ([facility]) Vital Signs (Past 12 Hours) Vital Signs Temp Pulse Resp BP Pulse Ox 07/06/21 06:48 93 H 07/06/21 04:39 37.1 C 18 07/05/21 21:58 107/69 07/05/21 21:30 92 H 24 96 07/05/21 21:11 95/72 L 96 07/05/21 20:30 102 H 20 97 07/05/21 20:14 104 H 98 07/05/21 20:00 99 H 19 97 07/05/21 19:30 103 H 21 97 07/05/21 19:18 107 H 20 97 (1) Leukocytosis Leukocytosis type: unspecified Qualified Code(s): D72.829 - Elevated white blood cell count, unspecified (2) UTI (urinary tract infection) Urinary tract infection type: site unspecified
[2021-07-06 07:29] LABS: Basophils # (auto) 0.01 K/uL (0-0.2); Basophils % (auto) 0.1 %; Hematocrit (blood only) 26.9 % (37-47); Hemoglobin 9.2 g/dL (12.0-16.0); Immature Granulocytes # (auto) 0.06 K/uL (0.00-0.02); Immature Granulocytes % (auto) 0.4 %; Lymphocytes # (auto) 1.09 K/uL (1.2-3.4); Mean Corpuscular Hemoglobin 31.7 pg (25-34); Mean Corpuscular Hgb Conc 34.2 g/dL (32-36); Mean Corpuscular Volume 92.8 fL (80-100); Mean Platelet Volume 9.6 fL (7.4-10.4); Monocytes # (auto) 2.15 K/uL (0.11-0.59); Monocytes % (auto) 15.7 %; Neutrophils # (auto) 10.38 K/uL (1.4-6.5); Neutrophils % (auto) 75.8 %; Platelet Count 257 K/uL (130-400); RDW Coefficient of Variation 13.4 % (11.5-14.5); RDW Standard Deviation 45.1 fL (36.4-46.3); White Blood Count 13.69 K/uL (4.8-10.8)
[2021-07-06] MEDS ORDERED: SODIUM CHLORIDE 0.9% 1000ML 1,000 ML IV SCH (07:45)
[2021-07-06 07:58] LABS: Albumin Level 3.2 gm/dl (3.4-5.0); BUN Creatinine Ratio 23.5 (10-20); Calcium 8.5 mg/dl (8.5-10.1); Creatinine Clr Calc Pharmacy 74.4 ml/min; Est GFR (African American) 104.2 ml/min; Est GFR (Non-African American) 89.9 ml/min; Globulin 3.1 gm/dl (2.5-4.0); Magnesium 2.1 mg/dl (1.7-2.4); Phosphorus 2.6 mg/dl (2.5-4.9); Potassium 3.6 mmol/L (3.5-5.1); Total Protein 6.3 gm/dl (6.0-8.3)
[2021-07-06] MEDS ORDERED: ENOXAPARIN INJ 40 MG/0.4 ML SYR SQ SCH (09:00)
[2021-07-06] MEDS ORDERED: NON-FORMULARY MEDICATION (Coq10 (Ubiquinol) 100 mg capsule) PO SCH (09:00)
--- NOTE | 2021-07-06 09:05 | XRay Report ---
XR chest 1V portable CLINICAL HISTORY: Difficulty breathing. Evaluate for pulm edema and pleural effusions. COMPARISON STUDY: 02/12/2017 TECHNIQUE: 1 view of the chest FINDINGS: Single frontal view of the chest demonstrates the cardiomediastinal silhouette to be within normal li mits. There has been interval placement of a dual lead permanent cardiac pacer. There is very mild in distinctness of the central hilar vessels suspicious for very mild central vascular congestion. There is no peripheral interstitial edema. There is minimal blunting of left costophrenic angle suspicious for small left pleural effusion. There is no evidence for right pleural effusion. There are no confl uent alveolar opacities. There is no acute osseous pathology. IMPRESSION: 1. Interval pacer placement. 2. Evidence for very mild central vascular congestion and possible left pleural effusion. Follow-up P A and lateral radiographs would be recommended. ACT 112: Negative or not required by law. Electronically signed by: Yang Coleman M.D. 07/06/2021 9:03 AM
[2021-07-06] MEDS: CALCIUM CARBONATE 1250MG TAB PO SCH (09:17)
[2021-07-06] MEDS: CHOLECALCIFEROL 5,000 UNITS 125 MCG TAB PO SCH ×2 (09:17→20:58)
[2021-07-06] MEDS: MAGNESIUM OXIDE 400 MG TAB PO SCH ×2 (09:18→20:58)
[2021-07-06] MEDS: OMEGA-3 (PURIFIED FISH OIL) 1 GM CAP PO SCH ×2 (09:18→20:58)
[2021-07-06] MEDS: ADVANCED PROBIOTIC 1250 MG CAPSULE PO SCH (09:18)
[2021-07-06] MEDS: MULTIVITAMIN TAB PO SCH (09:18)
--- NOTE | 2021-07-06 09:19 | Hospitalist Progress Note ---
Date of Service July 06, 2021 Assessment & Plan (1) Liver mass: (2) Abdominal pain: (3) Transaminitis: (4) UTI (urinary tract infection): (5) Acute hyponatremia: Plan: #abdominal pain, nausea, vomiting -initially cholecystitis was presumed given that CT showed distended gallbladder with trace pericholecystic fluid without gallstones and evidence of enteritis. Labs also showed leukocytosis, mild transaminitis. However, physical exam showed +Monreal sign, and pain to epigastric/LLQ/LUQ regions with palpation. Notably her hepatomegaly, per imaging, seems to cause midline displacement of gallbladder which may explain her epigastric pain (as opposed to classic RUQ pain) -HIDA scan unremarkable -pending stool studies including C. diff -continue IV Zosyn -continue NPO status -PRN Zofran for nausea -PRN Tylenol for pain #hyponatremia, hypokalemia -given her hypovolemic status and hyponatremia, continue IV normal saline w/ 20 Meq KCl IV q8hr -check BMP q4 hours. goal is to raise Na levels to WNL but no more quickly than 8 mmol/L / 24 hours #R hepatic mass, hepatomegaly, transaminitis -CT abd/pelvis did raise suspicion for neoplasm: 5.8x5.7cm right hepatic dome mass (new since 2014) with irregular peripheral enhancement and nodular enhancing septations. No mets seen on CT A/P -liver US also shows concerning mass for malignancy, agreeing with the CT scan -she is interested in working this up further but wants to resolve her abdominal pain/n/v beforehand -will try to schedule liver biopsy during her hospital stay in order to avoid delaying the procedure #UTI -currently no dysuria/urinary frequency -UA showed +nitrites - urine cx pending - continue Zosyn as stated above #Depression -continue Amitriptyline #FENGI: NPO status #DVT prophylaxis: Lovenox #Disposition: med surg w/ tele Admission and Anticipated Discharge Date Admission Date: July 05, 2021 Supervising Physician Co-Signing Physician Notes I personally examined the patient and verified all bradford points of history and exam, discussed case, and agree with decision making with R Rah MS2 feeling better ovreall stomach/GI sx improving. discussed hepatic mass in detail vitals noted nad heent nc at mmm breathing unlabored no accessory msucles good effort skin no rashes no pallor or icterus abd pain/nausea/vomiting - initial concern GB but less likely w imaging/HIDA - biggest ddx now viral GE - and seems to be improving as such. supportive care/diet hepatic mass - biopsy next step - radiology will attempt US guided tomorrow Subjective Avril Connolly) is a 66 y/o F w/ PMHx of bradycardia requiring pacemaker and depression who presented to [facility] ED on 07/05/21 w/ a 5-day hx of nausea, vomiting/dry heaves (3 episodes), and chills w/o fever. She did not appreciate any bloody emesis, chest pain or SOB. She has not noted any significant weight loss although she has not tolerated food/liquids since the onset of her sx. She has noted some occasional hot flashes/night sweats but states they have exacerbated when she stopped her HRT 2/2 menopause in January of 2021.C urrently she denies dysuria, frequency, and suprapubic pain. Her last colonoscopy was in June 2020 which showed diverticulosis and hemorrhoids Pap Smear: Last performed 2019 (negative) Mammogram: Performed last (09/2020- [facility]) In the ED, out of concern for leukocytosis, tachycardia, hypotension, she was started on the following: She was started on the following: -Zosyn 3.375g IV q8hr -normal saline w/ 20 Meq KCl IV q8hr -Lovenox 40mg SQ q24hr -Amitryptyline 10mg po qhs -PRN tylenol 650 mg PO q6hr -PRN Zofran 4mg IV q6hr -PRN Dilaudid 0.25mg IV q6hr -Analgesia in ED: Fentanyl 25mcg IV x1 and Morphine 2mg IV x2 for abdominal pain. Was also given 1L NSS bolus. Lastly was given Zofran 4mg IV x1. Today Renata shared that she has not had any additional episodes of vomiting, nausea, fevers or chills since admission. She shared that she takes many at-home vitamins and supplements including one for "female hormone therapy" that she has been taking for the past 1 month. She smokes marijuana 1-2x/night but has not smoked since her GI sx began 5-6 days ago. Regarding alcohol use, she has a remote history of drinking but has not consumed alcohol since 2008. Additionally she has an on/off cigarette smoking history but quit many years ag. Review of Systems Review of Systems: All systems reviewed & are unremarkable except as noted in Subjective Physical Exam Constitutional: WD/WN, vitals as above Eyes: PERRL, conjunctivae normal, anicteric sclerae Respiratory: normal respiratory effort, lungs clear to auscultation Cardiovascular: Rate/Rhythm: regular rhythm and + tachycardic Heart Sounds: normal S1 and normal S2 pacemaker visible on L anterior chest Gastrointestinal (Abdomen): inspection reveals intact skin, no grossly apparent masses/lesions, normoactive bowel sounds in all 4 quadrants. Palpation elicited pain in the epigastric/LLQ/LUQ regions. +Monreal sign Skin: no rashes, warm and dry Neurologic: PERRL, EOMI, accommodation nl, no face palsy, no dysarthria (no resting tremor) Psychiatric: A+Ox3, euthymic affect Results & Data Results & Data ([facility]) Vital Signs (Past 12 Hours) Vital Signs Temp Pulse Pulse Resp BP BP Pulse Ox 07/06/21 08:26 96 H 07/06/21 07:29 36.4 C L 106 H 18 99/66 L 96 07/06/21 06:48 93 H 07/06/21 04:39 37.1 C 18 07/05/21 21:58 107/69 07/05/21 21:30 92 H 24 96 07/05/21 21:11 95/72 L 96 Laboratory Results 07/06/21 07/06/21 07/06/21 Unknown 07:03 07:03 WBC 13.69 H RBC 2.90 L Hgb 9.2 L POC Hgb Hct 26.9 L POC Hct MCV 92.8 MCH 31.7 MCHC 34.2 RDW Std Deviation 45.1 RDW Coeff of Francois 13.4 Plt Count 257 MPV 9.6 Immature Gran % (Auto) 0.4 Neut % (Auto) 75.8 Lymph % (Auto) 8.0 Kenton % (Auto) 15.7 Eos % (Auto) 0.0 Baso % (Auto) 0.1 Neut # (Auto) 10.38 H Lymph # (Auto) 1.09 L Kenton # (Auto) 2.15 H Eos # (Auto) 0.00 Baso # (Auto) 0.01 Immature Gran # (Auto) 0.06 H POC Sodium Sodium 125 L POC Potassium Potassium 3.6 POC Chloride Chloride 94 L Carbon Dioxide 23 POC Total CO2 Anion Gap 8 POC Anion Gap POC BUN BUN 16 Creatinine 0.68 POC Creatinine Est Cr Clr Drug Dosing 74.4 Est GFR ( Amer) 104.2 Est GFR (Non-Af Amer) 89.9 BUN/Creatinine Ratio 23.5 H Glucose 112 H POC Glucose (other) Calcium 8.5 POC Ioniz Calcium Sherrill Phosphorus 2.6 Magnesium 2.1 Total Bilirubin 1.0 AST 36 ALT 52 Alkaline Phosphatase 100 Total Protein 6.3 Albumin 3.2 L Globulin 3.1 Albumin/Globulin Ratio 1.0 Lipase Urine Color Urine Appearance Urine pH Ur Specific Corona Urine Protein Urine Glucose (UA) Urine Ketones Urine Blood Urine Nitrite Urine Bilirubin Urine Urobilinogen Ur Leukocyte Esterase Urine WBC (Auto) Urine RBC (Auto) U Hyaline Cast (Auto) U Epithel Cells (Auto) Urine Bacteria (Auto) Ur Random Sodium < 10 SARS-CoV-2, RNA, NAAT 07/06/21 07/05/21 07/05/21 00:03 21:54 21:08 WBC RBC Hgb POC Hgb Hct POC Hct MCV MCH MCHC RDW Std Deviation RDW Coeff of Francois Plt Count MPV Immature Gran % (Auto) Neut % (Auto) Lymph % (Auto) Kenton % (Auto) Eos % (Auto) Baso % (Auto) Neut # (Auto) Lymph # (Auto) Kenton # (Auto) Eos # (Auto) Baso # (Auto) Immature Gran # (Auto) POC Sodium Sodium 127 L POC Potassium Potassium 3.3 L POC Chloride Chloride 93 L Carbon Dioxide 22 POC Total CO2 Anion Gap 12 H POC Anion Gap POC BUN BUN 17 Creatinine 0.67 POC Creatinine Est Cr Clr Drug Dosing 75.5 Est GFR ( Amer) 104.7 Est GFR (Non-Af Amer) 90.3 BUN/Creatinine Ratio 25.4 H Glucose 128 H POC Glucose (other) Calcium 8.9 POC Ioniz Calcium Sherrill Phosphorus Magnesium Total Bilirubin AST ALT Alkaline Phosphatase Total Protein Albumin Globulin Albumin/Globulin Ratio Lipase Urine Color Yellow Urine Appearance Clear Urine pH 7.0 Ur Specific Corona > 1.045 H Urine Protein 2+ H Urine Glucose (UA) Negative Urine Ketones Trace H Urine Blood Negative Urine Nitrite Positive A Urine Bilirubin Negative Urine Urobilinogen Negative Ur Leukocyte Esterase Negative Urine WBC (Auto) 1-5 Urine RBC (Auto) 0-4 U Hyaline Cast (Auto) 0 U Epithel Cells (Auto) >30 H Urine Bacteria (Auto) Negative Ur Random Sodium SARS-CoV-2, RNA, NAAT NEGATIVE 07/05/21 07/05/21 07/05/21 19:21 19:15 19:15 WBC 18.60 H RBC 3.31 L Hgb 10.9 L POC Hgb 12.2 Hct 30.5 L POC Hct 36 L MCV 92.1 MCH 32.9 MCHC 35.7 RDW Std Deviation 44.8 RDW Coeff of Francois 13.2 Plt Count 288 MPV 9.6 Immature Gran % (Auto) 0.4 Neut % (Auto) 84.2 Lymph % (Auto) 9.4 Kenton % (Auto) 5.9 Eos % (Auto) 0.0 Baso % (Auto) 0.1 Neut # (Auto) 15.67 H Lymph # (Auto) 1.75 Kenton # (Auto) 1.10 H Eos # (Auto) 0.00 Baso # (Auto) 0.01 Immature Gran # (Auto) 0.07 H POC Sodium 129 L Sodium 128 L POC Potassium 3.3 Potassium 3.3 L POC Chloride 93 L Chloride 92 L Carbon Dioxide 21 POC Total CO2 19 L Anion Gap 15 H POC Anion Gap 21.0 POC BUN 17 BUN 18 Creatinine 0.80 POC Creatinine 0.6 Est Cr Clr Drug Dosing Not Reportable Est GFR ( Amer) 87.8 Est GFR (Non-Af Amer) 75.8 BUN/Creatinine Ratio 22.5 H Glucose 132 H POC Glucose (other) 137 H Calcium 9.4 POC Ioniz Calcium Sherrill 1.12 Phosphorus 2.1 L Magnesium 1.6 L Total Bilirubin 0.9 AST 58 H ALT 67 H Alkaline Phosphatase 126 H Total Protein 7.3 Albumin 3.7 Globulin 3.6 Albumin/Globulin Ratio 1.0 Lipase 3 L Urine Color Urine Appearance Urine pH Ur Specific Corona Urine Protein Urine Glucose (UA) Urine Ketones Urine Blood Urine Nitrite Urine Bilirubin Urine Urobilinogen Ur Leukocyte Esterase Urine WBC (Auto) Urine RBC (Auto) U Hyaline Cast (Auto) U Epithel Cells (Auto) Urine Bacteria (Auto) Ur Random Sodium SARS-CoV-2, RNA, NAAT Diagnostic Findings Abdomen/Pelvis CT 07/05/21 19:00 CT OF THE ABDOMEN AND PELVIS WITH CONTRAST CLINICAL HISTORY: Left-sided abdominal pain. COMPARISON STUDY: Chest CT May 20, 2014. TECHNIQUE: Following IV administration of 92 mL of Optiray, axial images of the abdomen and pelvis were obtained from the lung bases to the proximal femurs. Images were reviewed in the axial, sagittal, and coronal planes. IV contrast was administered without complication. Automated exposure control was utilized for the study. A dose lowering technique was utilized adhering to the principles of ALARA. CT DOSE: 291.29 mGy.cm FINDINGS: Trace bilateral pleural effusions within the lower chest are noted as well as interlobular septal thickening consistent with pulmonary edema. There is a possible 4 mm lingular nodule on axial image 36 of 396. Small hiatal hernia No pneumatosis, free air or portal venous gas is present. Pacer leads are partially imaged. Note is made of a 5.8 x 5.7 cm hypodense segment 8 mass within the right hepatic dome. This mass has irregular peripheral enhancement as well as nodular enhancing septations. This mass is new since chest CT of May 20, 2014. No additional hepatic lesions are present. Liver morphology is normal. Liver is mildly enlarged. The gallbladder is distended. There is trace pericholecystic fluid. No biliary or pancreatic ductal dilatation is present. No peripancreatic infiltration. Spleen, adrenal glands and kidneys are unremarkable. No hydronephrosis. Moderate diverticulosis is noted without evidence for acute diverticulitis. There is no bowel obstruction. There is subtle mesenteric stranding associated with jejunal loops within the left mid abdomen. No abdominal or pelvic lymphadenopathy. No suspicious lesions are identified within the visualized skeletal structures. Severe left hip osteoarthritis is noted. Appendix is normal. IMPRESSION: 1. Mild mesenteric stranding associated with jejunal loops within left mid abdomen. This represents a nonspecific enteritis. 2. 5.8 x 5.7 cm right hepatic dome mass which is new since chest CT of May 20, 2014. This lesion has irregular peripheral enhancement as well as nodular enhancing septations. This mass is suspicious for a neoplasm and favors a primary liver malignancy over metastatic disease. Nonemergent liver protocol CT or MRI is recommended for further evaluation. 3. Distended gallbladder with trace pericholecystic fluid. A right upper quadrant ultrasound could be obtained to exclude acute cholecystitis although no pericholecystic infiltration. 4. Mild interstitial pulmonary edema with trace bilateral pleural effusions. 5. Colonic diverticulosis. No evidence for acute diverticulitis. ACT 112: Positive. There are findings on this exam that require communication between the performing entity and the patient following Patient Test Result Information Act ([place] Act 112) guidelines. Electronically signed by: Sawyer Rivera M.D. 07/05/2021 8:18 PM Chest X-Ray 07/06/21 01:50 XR chest 1V portable CLINICAL HISTORY: Difficulty breathing. Evaluate for pulm edema and pleural effusions. COMPARISON STUDY: 02/12/2017 TECHNIQUE: 1 view of the chest FINDINGS: Single frontal view of the chest demonstrates the cardiomediastinal silhouette to be within normal limits. There has been interval placement of a dual lead permanent cardiac pacer. There is very mild indistinctness of the central hilar vessels suspicious for very mild central vascular congestion. There is no peripheral interstitial edema. There is minimal blunting of left costophrenic angle suspicious for small left pleural effusion. There is no evidence for right pleural effusion. There are no confluent alveolar opacities. There is no acute osseous pathology. IMPRESSION: 1. Interval pacer placement. 2. Evidence for very mild central vascular congestion and possible left pleural effusion. Follow-up PA and lateral radiographs would be recommended. ACT 112: Negative or not required by law. Electronically signed by: Yang Coleman M.D. 07/06/2021 9:03 AM Liver Ultrasound 07/06/21 10:00 US liver Limited abdomen CLINICAL HISTORY: Follow-up for evaluation of liver mass. COMPARISON: CT of the abdomen and pelvis from 07/05/2021 TECHNIQUE: Multiple grayscale and color images of the right upper quadrant of the abdomen. FINDINGS: Pancreas: The pancreas is within normal limits with no focal mass or peripanc reatic fluid collection identified. Liver: Compared to the CT examination, a large, heterogeneous solid mass is present within the right lobe of the liver measuring 5.7 x 5.4 x 5.2 cm. There is again highly suspicious for a primary liver malignancy. CT of the liver without and with contrast using liver protocol or MRI is again the study of choice for further evaluation. There is no intrahepatic biliary duct dilatation. There is decreased flow within the portal vein. There is also suspicion of a small faye hepatic lymph node measuring 1.5 x 0.9 x 0.6 cm. Gallbladder: The gallbladder is distended with no evidence of cholelithiasis, wall thickening or pericholecystic edema. There is evidence for sludge within the gallbladder. Common Bile Duct: (CBD): It is normal in size measuring 6 mm Inferior Vena Cava (IVC): The imaged IVC is patent. Right kidney: There is no evidence for hydronephrosis, calculus or gross renal mass. The kidney is normal in size. IMPRESSION: 1. Ultrasound confirms a large solid heterogeneous mass within the liver again most suspicious for a malignant neoplastic process. Follow-up is again recommended as described above. ACT 112: Negative or not required by law. Electronically signed by: Yang Coleman M.D. 07/06/2021 11:05 AM Hepatobiliary Scan Nuclear Medicine 07/06/21 10:30 NUCLEAR HEPATOBILIARY SCAN WITH EJECTION FRACTION IMAGING CLINICAL HISTORY: Right upper quadrant abdominal pain. COMPARISON STUDY: Abdominal ultrasound dated 07/06/2021. TECHNIQUE: Dynamic images of the liver and anterior abdomen were obtained every 5 minutes for a total of 60 minutes following the IV administration of 5.2 mCi of technetium 99m Mebrofenin. 1.3 mcg of sincalide was then injected with additional images acquired every 5 minutes for 45 minutes to calculate the gallbladder ejection fraction. FINDINGS: The hepatobiliary scan shows prompt hepatic uptake. A photopenic defect is seen in the superior right lobe. There is visualized activity within the intra and extrahepatic biliary tree at 15 minutes, and within the gallbladder at 50 minutes. There is normal biliary to bowel transit, with small bowel visualized by 26 minutes. On the sincalide imaging, the gallbladder ejection fraction was measured at 35%. IMPRESSION: 1. Unremarkable nuclear hepatobiliary scan. There is no scintigraphic evidence of cholecystitis. 2. The gallbladder ejection fraction measured 35% which is low-normal. 3. A photopenic defect in the superior right lobe may correspond to the hepatic mass lesion seen by CT. ACT 112: Negative or not required by law. Electronically signed by: Olayinka Castellano M.D. 07/06/2021 1:23 PM Medications Administered Current Inpatient Medications Acetaminophen (Acetaminophen 325 Mg Tab) 650 mg PO Q6H PRN PRN Reason: Pain or Fever Stop: 08/05/21 01:33 Amitriptyline HCl (Amitriptyline Hcl 10 Mg Tab) 10 mg PO HS [facility]CIA Stop: 08/05/21 20:59 Calcium Carbonate (Calcium Carbonate 1250mg Tab) 1,250 mg PO DAILY [facility]CIA Stop: 08/05/21 08:59 Last Admin: 07/06/21 09:17 Dose: 1,250 mg Documented by: Enoxaparin Sodium (Enoxaparin Inj 40 Mg/0.4 Ml Syr) 40 mg SQ Q24H [facility]CIA Stop: 08/05/21 08:59 Last Admin: 07/06/21 09:17 Dose: 40 mg Documented by: Fish Oil (Liberty-3 (Purified Fish Oil) 1 Gm Cap) 1 gm PO BID GRECIA Stop: 08/05/21 08:59 Last Admin: 07/06/21 09:18 Dose: 1 gm Documented by: Hydromorphone HCl (Hydromorphone Inj 0.5 Mg/0.5 Ml Syr) 0.25 mg IV Q6H PRN PRN Reason: Pain Stop: 07/20/21 01:47 Last Admin: 07/06/21 02:18 Dose: 0.25 mg Documented by: Piperacillin Sod/Tazobactam (Sod 3.375 gm/ Dextrose) 115 mls @ 28.75 mls/hr IV Q8H [facility]; Protocol Stop: 07/16/21 01:59 Last Infusion: 07/06/21 04:14 Dose: 0 mls/hr Documented by: Potassium Chloride/Sodium Chloride (Normal Saline W/20 Meq Kcl) 20 meq in 1,000 mls @ 125 mls/hr IV .Q8H [facility]; Protocol Stop: 08/05/21 01:59 Last Admin: 07/06/21 09:25 Dose: 125 mls/hr Documented by: Lactobacillus Acidophilus (Advanced Probiotic 1250 Mg Capsule) 2 cap PO DAILY [facility]CIA Stop: 08/05/21 08:59 Last Admin: 07/06/21 09:18 Dose: 2 cap Documented by: Magnesium Oxide (Magnesium Oxide 400 Mg Tab) 400 mg PO BID [facility]CIA Stop: 08/05/21 08:59 Last Admin: 07/06/21 09:18 Dose: 400 mg Documented by: Melatonin (Melatonin 3 Mg Tab) 3 mg PO HS PRN PRN Reason: Sleep Stop: 08/05/21 01:33 Miscellaneous Information (Piperacill/Tazobac Consult Active) 1 ea N/A UD PRN PRN Reason: Consult Stop: 08/04/21 20:33 Multivitamins (Multivitamin Tab) 1 tab PO DAILY [facility]CIA Stop: 08/05/21 08:59 Last Admin: 07/06/21 09:18 Dose: 1 tab Documented by: Ondansetron HCl (Ondansetron Inj 2 Mg/Ml 2 Ml Vial) 4 mg IV Q6H PRN PRN Reason: Nausea Stop: 08/05/21 01:33 Vitamin D (Cholecalciferol 5,000 Units 125 Mcg Tab) 5,000 units PO BID [facility] Stop: 08/05/21 08:59 Last Admin: 07/06/21 09:17 Dose: 5,000 units Documented by: (1) UTI (urinary tract infection) Urinary tract infection type: site unspecified
--- NOTE | 2021-07-06 11:07 | Ultrasound Report ---
US liver Limited abdomen CLINICAL HISTORY: Follow-up for evaluation of liver mass. COMPARISON: CT of the abdomen and pelvis from 07/05/2021 TECHNIQUE: Multiple grayscale and color images of the right upper quadrant of the abdomen. FINDINGS: Pancreas: The pancreas is within normal limits with no focal mass or peripancreatic fluid collection identified. Liver: Compared to the CT examination, a large, heterogeneous solid mass is present within the right lobe of the liver measuring 5.7 x 5.4 x 5.2 cm. There is again highly suspicious for a primary liver malignancy. CT of the liver without and with contrast using liver protocol or MRI is again the study of choice for further evaluation. There is no intrahepatic biliary duct dilatation. There is decreased flow within the portal vein. There is also suspicion of a small faye hepatic lymp h node measuring 1.5 x 0.9 x 0.6 cm. Gallbladder: The gallbladder is distended with no evidence of cholelithiasis, wall thickening or per icholecystic edema. There is evidence for sludge within the gallbladder. Common Bile Duct: (CBD): It is normal in size measuring 6 mm Inferior Vena Cava (IVC): The imaged IVC is patent. Right kidney: There is no evidence for hydronephrosis, calculus or gross renal mass. The kidney is n ormal in size. IMPRESSION: 1. Ultrasound confirms a large solid heterogeneous mass within the liver again most suspicious for a malignant neoplastic process. Follow-up is again recommended as described above. ACT 112: Negative or not required by law. Electronically signed by: Yang Coleman M.D. 07/06/2021 11:05 AM
[2021-07-06] MEDS ORDERED: SINCALIDE 1.3 MCG in 0.9 % SODIUM CHLORIDE 100 ML IV SCH (12:00)
--- NOTE | 2021-07-06 13:25 | Nuclear Medicine Report ---
NUCLEAR HEPATOBILIARY SCAN WITH EJECTION FRACTION IMAGING CLINICAL HISTORY: Right upper quadrant abdominal pain. COMPARISON STUDY: Abdominal ultrasound dated 07/06/2021. TECHNIQUE: Dynamic images of the liver and anterior abdomen were obtained every 5 minutes for a total of 60 minutes following the IV administration of 5.2 mCi of technetium 99m Mebrofenin. 1.3 mcg of sincalide was then injected with additional images acquired every 5 minutes for 45 minutes to calcula te the gallbladder ejection fraction. FINDINGS: The hepatobiliary scan shows prompt hepatic uptake. A photopenic defect is seen in the supe rior right lobe. There is visualized activity within the intra and extrahepatic biliary tree at 15 m inutes, and within the gallbladder at 50 minutes. There is normal biliary to bowel transit, with smal l bowel visualized by 26 minutes. On the sincalide imaging, the gallbladder ejection fraction was measured at 35%. IMPRESSION: 1. Unremarkable nuclear hepatobiliary scan. There is no scintigraphic evidence of cholecystitis. 2. The gallbladder ejection fraction measured 35% which is low-normal. 3. A photopenic defect in the superior right lobe may correspond to the hepatic mass lesion seen by C T. ACT 112: Negative or not required by law. Electronically signed by: Olayinka Castellano M.D. 07/06/2021 1:23 PM
[2021-07-06] MEDS: ONDANSETRON INJ 2 MG/ML 2 ML VIAL IV PRN (15:00)
[2021-07-06 15:09] LABS: BUN Creatinine Ratio 25.4 (10-20); Calcium 7.6 mg/dl (8.5-10.1); Creatinine Clr Calc Pharmacy 71.3 ml/min; Est GFR (African American) 101.4 ml/min; Est GFR (Non-African American) 87.5 ml/min
--- NOTE | 2021-07-06 16:25 | Electrocardiogram Report ---
Test Reason : Blood Pressure : / mmHG Vent. Rate : 097 BPM Atrial Rate : 097 BPM P-R Int : 216 ms QRS Dur : 170 ms QT Int : 382 ms P-R-T Axes : 056 -82 103 degrees QTc Int : 485 ms Atrial-sensed ventricular-paced rhythm with prolonged AV conduction Abnormal ECG When compared with ECG of 14-FEB-2017 06:56, Vent. rate has increased BY 37 BPM Confirmed by Jamal Weaver ([id number]) on 07/06/2021 4:25:39 PM Referred By: Filemon Bowen Confirmed By:Jamal Weaver
--- NOTE | 2021-07-06 17:53 | Billing Data ---
Date of Service July 06, 2021 Coding Level of Care Code 74761 Subseq Hosp Care Lvl 3
[2021-07-06] MEDS: AMITRIPTYLINE HCL 10 MG TAB PO SCH (20:58)
--- NOTE | 2021-07-06 22:09 | Billing Data ---
Date of Service July 06, 2021 Coding Level of Care Code 19036 Initial Inpt Care Lvl 3
[2021-07-07] MEDS: NSS + 20MEQ KCL 20 MEQ/1,000 ML BAG IV SCH ×3 (01:17→18:47)
[2021-07-07 06:44] LABS: Mean Corpuscular Hemoglobin 32.1 pg (25-34); Mean Corpuscular Hgb Conc 34.6 g/dL (32-36); Mean Corpuscular Volume 92.9 fL (80-100); Mean Platelet Volume 9.4 fL (7.4-10.4); Platelet Count 275 K/uL (130-400); RDW Coefficient of Variation 13.6 % (11.5-14.5); RDW Standard Deviation 46.4 fL (36.4-46.3); White Blood Count 13.57 K/uL (4.8-10.8)
[2021-07-07 06:51] LABS: INR 1.3 (0.9-1.1); Prothrombin Time 13.2 Seconds (9.0-12.0)
[2021-07-07 07:07] LABS: Calcium 7.6 mg/dl (8.5-10.1); Creatinine Clr Calc Pharmacy 93.7 ml/min; Est GFR (African American) 112.4 ml/min; Potassium 4.4 mmol/L (3.5-5.1)
[2021-07-07] MEDS: HYDROmorphone INJ 0.5 MG/0.5 ML SYR IV PRN ×2 (08:02→22:46)
[2021-07-07] MEDS: ONDANSETRON INJ 2 MG/ML 2 ML VIAL IV PRN (08:02)
--- NOTE | 2021-07-07 10:20 | Ultrasound Report ---
US biopsy liver CLINICAL HISTORY: irregular mass COMPARISON STUDY: CT of the abdomen and pelvis July 05, 2021. PROCEDURE: The procedure, risks and benefits were discussed with the patient including the risk of bl eeding, infection and injury to adjacent structures. The patient agreed to the procedure and informed written consent was obtained. The procedure was performed by Dr. Rivera following a timeout. Skin of the right upper quadrant was prepped and draped in sterile fashion and local anesthesia with 1% l idocaine. Under direct ultrasound guidance and utilizing a 5 1/2 inch 22-gauge Casey needle, 2 fin e-needle aspirations of the 5 cm right hepatic lobe mass were obtained. Preliminarily by pathology re vealed extensive neutrophils and necrosis. This raises the possibility of an infectious process such as abscess. The patient tolerated the procedure well and no immediate complications were evident. IMPRESSION: Successful ultrasound guided fine-needle aspiration of the right hepatic lobe lesion. Pr eliminary pathology results raised the possibility of an infectious/inflammatory process. Therefore, an abscess is within the differential. A mass cannot be excluded by imaging. Final pathology and micr obiology pending. ACT 112: Negative or not required by law. Electronically signed by: Sawyer Rivera M.D. 07/07/2021 10:19 AM
--- NOTE | 2021-07-07 10:48 | Hospitalist Progress Note ---
Date of Service July 07, 2021 Assessment & Plan (1) Liver mass: (2) Abdominal pain: (3) Transaminitis: (4) UTI (urinary tract infection): (5) Acute hyponatremia: Plan: #R hepatic mass, hepatomegaly, transaminitis -CT abd/pelvis did raise suspicion for neoplasm: 5.8x5.7cm right hepatic dome mass (new since 2014) with irregular peripheral enhancement and nodular enhancing septations. No mets seen on CT A/P -liver US also shows concerning mass for malignancy, agreeing with the CT scan -she is interested in working this up further but wants to resolve her abdominal pain/n/v beforehand -liver biopsy performed today 07/07/21. Bedside cytology actually favored nec rotic/infectious process but a path read is pending and would confirm diagnosis as well as potential abx regimen. -if final path read favors infectious process, would need to schedule I&D, likely at an outside institution -start metronidazole 500 mg po q8, famotidine 20 mg IV daily, sucralfate 1gm po qid prn, #abdominal pain, nausea, vomiting -initially cholecystitis was presumed given that CT showed distended gallbladder with trace pericholecystic fluid without gallstones and evidence of enteritis. Labs also showed leukocytosis, mild transaminitis. However, physical exam showed +Monreal sign, and pain to epigastric/LLQ/LUQ regions with palpation. Notably her hepatomegaly, per imaging, seems to cause midline displacement of gallbladder which may explain her epigastric pain (as opposed to classic RUQ pain) -HIDA scan unremarkable -continue NPO status -PRN Zofran for nausea -PRN Tylenol for pain #hyponatremia, hypokalemia -given her hypovolemic status and hyponatremia, continue IV normal saline w/ 20 Meq KCl IV q8hr -despite IV fluids, her Na continues to be low at 126. She is asymptomatic for this and this may be her baseline #asymptomatic bacteriuria -Zosyn was discontinued on 07/06/21 #Depression -continue Amitriptyline #FENGI: NPO status #DVT prophylaxis: Lovenox #Disposition: med surg w/ tele Admission and Anticipated Discharge Date Admission Date: July 05, 2021 Supervising Physician Co-Signing Physician Notes I personally examined the patient and verified all bradford points of history and exam, discussed case, and agree with decision making with Shruthi Monreal MS2 still w food aversion. feels lousy, weak, lightheaded. easily fatigued fortunatley liver bx appears inflammatory probable infectious, not malignant! vitals noted nad heent nc at mmm breathing unlabored no accessory muscles does appear fatigued liver abscess - await path/cultures. start flagyl for now. fortunately does not appear malignant! probably explains GI sx as well. supportive care. otherwise as above Yousif Connolly) is a 66 y/o F w/ PMHx of bradycardia requiring pacemaker and depression who presented to [facility] ED on 07/05/21 w/ a 5-day hx of nausea, vomiting/dry heaves (3 episodes), and chills w/o fever. She did not appreciate any bloody emesis, chest pain or SOB. She has not noted any significant weight loss although she has not tolerated food/liquids since the onset of her sx. She has noted some occasional hot flashes/night sweats but states they have exacerbated when she stopped her HRT 2/2 menopause in January of 2021.Currently she denies dysuria, frequency, and suprapubic pain. Her last colonoscopy was in June 2020 which showed diverticulosis and hemorrhoids Pap Smear: Last performed 2019 (negative) Mammogram: Performed last (09/2020- [facility]) In the ED, out of concern for leukocytosis, tachycardia, hypotension, she was started on the following: She was started on the following: -Zosyn 3.375g IV q8hr -normal saline w/ 20 Meq KCl IV q8hr -Lovenox 40mg SQ q24hr -Amitryptyline 10mg po qhs -PRN tylenol 650 mg PO q6hr -PRN Zofran 4mg IV q6hr -PRN Dilaudid 0.25mg IV q6hr -Analgesia in ED: Fentanyl 25mcg IV x1 and Morphine 2mg IV x2 for abdominal pa in. Was also given 1L NSS bolus. Lastly was given Zofran 4mg IV x1. Today (07/07/21) Renata shared that she has not had any additional episodes of vomiting, fevers or chills since admission. However, in the shingle sawyer on 07/07/21 she noted some nausea that was alleviated by Zofran. She had a poor appetite for dinner last night and only had a few bites of her dinner. No bowel movements since admission. Otherwise no MAYBERRY, chest pain, SOB, LE edema, fever, skin changes. Review of Systems Review of Systems: All systems reviewed & are unremarkable except as noted in Subjective Results & Data Results & Data ([facility]) Vital Signs (Past 12 Hours) Vital Signs Temp Pulse Pulse Resp BP Pulse Ox 07/07/21 10:12 36.5 C 62 18 110/68 97 07/07/21 10:07 36.5 C 60 16 92/59 L 93 07/07/21 07:01 61 07/07/21 05:26 94 H 07/07/21 04:00 37.1 C 97 H 18 126/84 96 07/06/21 23:00 36.7 C 94 H 18 118/53 L 95 (1) UTI (urinary tract infection) Urinary tract infection type: site unspecified
[2021-07-07] MEDS: MAGNESIUM OXIDE 400 MG TAB PO SCH ×2 (10:51→21:17)
[2021-07-07] MEDS: OMEGA-3 (PURIFIED FISH OIL) 1 GM CAP PO SCH ×2 (10:51→21:18)
[2021-07-07] MEDS: MULTIVITAMIN TAB PO SCH (10:51)
[2021-07-07] MEDS: CHOLECALCIFEROL 5,000 UNITS 125 MCG TAB PO SCH ×2 (10:51→21:18)
[2021-07-07] MEDS: CALCIUM CARBONATE 1250MG TAB PO SCH (10:51)
[2021-07-07] MEDS: ADVANCED PROBIOTIC 1250 MG CAPSULE PO SCH (10:51)
[2021-07-07] MEDS ORDERED: SUCRALFATE 1 GM TAB PO PRN (11:44)
[2021-07-07] MEDS ORDERED: FAMOTIDINE 20 MG in SYRINGE 3 ML IV SCH (12:00)
[2021-07-07] MEDS: ONDANSETRON INJ 2 MG/ML 2 ML VIAL IV SCH ×3 (12:16→22:47)
[2021-07-07] MEDS: ACETAMINOPHEN 325 MG TAB PO SCH ×2 (12:16→18:47)
--- NOTE | 2021-07-07 13:24 | Billing Data ---
Date of Service July 07, 2021 Coding Level of Care Code 05892 Subseq Hosp Care Lvl 3
[2021-07-07] MEDS ORDERED: PANTOprazole 40 MG TAB PO STA (13:31)
[2021-07-07] MEDS: metroNIDAZOLE 500 MG TAB PO SCH ×2 (13:50→21:17)
[2021-07-07 16:37] LABS: Adenovirus F 40/41 PCR Not Detected (NotDetected); Astrovirus PCR Not Detected (NotDetected); Campylobacter PCR Not Detected (NotDetected); Clostridium diff Toxin A/B PCR Not Detected (NotDetected); Cryptosporidium PCR Not Detected (NotDetected); Cyclospora cayetanensis PCR Not Detected (NotDetected); Entamoeba histolytica PCR Not Detected (NotDetected); Enteroaggregative E.coli(EAEC) Not Detected (NotDetected); Enteropathogenic E.coli (EPEC) Not Detected (NotDetected); Enterotoxigenic E.coli (ETEC) Not Detected (NotDetected); Giardia lamblia PCR Not Detected (NotDetected); Norovirus GI/GII PCR Not Detected (NotDetected); Plesiomonas shigelloides PCR Not Detected (NotDetected); Rotavirus A PCR Not Detected (NotDetected); Salmonella PCR Not Detected (NotDetected); Sapovirus PCR Not Detected (NotDetected); Shiga-like Toxin E.coli (STEC) Not Detected (NotDetected); Shigella/Enteroinvasive E.coli Not Detected (NotDetected); Vibrio cholerae PCR Not Detected (NotDetected); Vibrio species PCR Not Detected (NotDetected); Yersinia enterocolitica PCR Not Detected (NotDetected)
[2021-07-07] MEDS: SUCRALFATE 1 GM TAB PO SCH ×2 (17:08→21:17)
[2021-07-07] MEDS: PANTOprazole 40 MG TAB PO SCH (21:17)
[2021-07-07] MEDS: AMITRIPTYLINE HCL 10 MG TAB PO SCH (21:19)
[2021-07-07] MEDS: FAMOTIDINE 20 MG in SYRINGE 3 ML IV SCH (21:24)
[2021-07-08] MEDS: ACETAMINOPHEN 325 MG TAB PO SCH ×3 (01:01→12:15)
[2021-07-08] MEDS: ONDANSETRON INJ 2 MG/ML 2 ML VIAL IV SCH ×2 (05:39→12:15)
[2021-07-08] MEDS: metroNIDAZOLE 500 MG TAB PO SCH ×2 (05:40→13:25)
[2021-07-08 07:36] LABS: Hematocrit (blood only) 25.3 % (37-47); Hemoglobin 8.7 g/dL (12.0-16.0); Mean Corpuscular Hemoglobin 31.9 pg (25-34); Mean Corpuscular Hgb Conc 34.4 g/dL (32-36); Mean Corpuscular Volume 92.7 fL (80-100); Mean Platelet Volume 9.3 fL (7.4-10.4); Nucleated RBC # (auto) 0.13 K/uL (0-0); Platelet Count 320 K/uL (130-400); RDW Coefficient of Variation 13.8 % (11.5-14.5); RDW Standard Deviation 46.3 fL (36.4-46.3); Red Blood Count 2.73 M/uL (4.2-5.4); White Blood Count 13.61 K/uL (4.8-10.8)
[2021-07-08] MEDS ORDERED: AMOXICILLIN/CLAVULANATE 875 MG TAB PO SCH (08:00)
[2021-07-08] MEDS: NSS + 20MEQ KCL 20 MEQ/1,000 ML BAG IV SCH (08:09)
[2021-07-08] MEDS: ADVANCED PROBIOTIC 1250 MG CAPSULE PO SCH (08:10)
[2021-07-08] MEDS: SUCRALFATE 1 GM TAB PO SCH ×2 (08:10→12:15)
[2021-07-08] MEDS: CALCIUM CARBONATE 1250MG TAB PO SCH (08:10)
[2021-07-08] MEDS: MULTIVITAMIN TAB PO SCH (08:10)
[2021-07-08] MEDS: MAGNESIUM OXIDE 400 MG TAB PO SCH (08:10)
[2021-07-08] MEDS: PANTOprazole 40 MG TAB PO SCH (08:11)
[2021-07-08] MEDS: CHOLECALCIFEROL 5,000 UNITS 125 MCG TAB PO SCH (08:11)
[2021-07-08] MEDS: OMEGA-3 (PURIFIED FISH OIL) 1 GM CAP PO SCH (08:11)
[2021-07-08 08:18] LABS: BUN Creatinine Ratio 36.8 (10-20); Calcium 7.3 mg/dl (8.5-10.1); Creatinine Clr Calc Pharmacy 88.8 ml/min; Est GFR (African American) 110.4 ml/min; Est GFR (Non-African American) 95.3 ml/min; Potassium 4.7 mmol/L (3.5-5.1)
[2021-07-08] MEDS: FAMOTIDINE 20 MG in SYRINGE 3 ML IV SCH (08:20)
[2021-07-08] MEDS ORDERED: cefTRIAXone SODIUM 2,000 MG in DEXTROSE 5% 50 ML IV SCH (09:00)
--- NOTE | 2021-07-08 10:05 | Hospitalist Progress Note ---
Date of Service July 08, 2021 Assessment & Plan (1) Liver mass: (2) Abdominal pain: (3) Transaminitis: (4) UTI (urinary tract infection): (5) Acute hyponatremia: Plan: #R hepatic mass, hepatomegaly, transaminitis -liver US/biopsy performed on 07/07/21 supported that the liver mass was likely necrotic/infectious, and showed gram+ cocci -prior imaging including CT abd/pelvis and liver US did raise concern for malignancy. No mets seen on CT A/P -will need to schedule I&D, likely at an outside institution -start metronidazole 500 mg po q8 -ceftriaxone 2g IV was initiated on 07/08/21 -literature supports I&D, outside facilities were called to initiate scheduling #abdominal pain, nausea, vomiting -initially cholecystitis was presumed given that CT showed distended gallbladder with trace pericholecystic fluid without gallstones and evidence of enteritis. Labs also showed leukocytosis, mild transaminitis. However, physical exam showed +Monreal sign, and pain to epigastric/LLQ/LUQ regions with palpation. Notably her hepatomegaly, per imaging, seems to cause midline displacement of gallbladder which may explain her epigastric pain (as opposed to classic RUQ pain) -HIDA scan unremarkable -PRN Tylenol for pain -PRN Zofran for nausea - famotidine 20 mg IV daily, sucralfate 1gm po qid prn, and pantoprazole 40 mg bid were added #hyponatremia, hypokalemia -given her hypovolemic status and hyponatremia, continue IV normal saline w/ 20 Meq KCl IV q8hr -despite IV fluids, her Na continues to be low at 126. She is asymptomatic for this and this may be her baseline #asymptomatic bacteriuria -Zosyn was discontinued on 07/06/21, continues to be asymptomatic #Depression -continue Amitriptyline #FENGI: normal diet PO as tolerated with clear liquids #DVT prophylaxis: Lovenox 40 mg subQ q24hr #Disposition: med surg w/ tele Admission and Anticipated Discharge Date Admission Date: July 05, 2021 Yousif Connolly) is a 66 y/o F w/ PMHx of bradycardia requiring pacemaker and depression who presented to [facility] ED on 07/05/21 w/ a 5-day hx of nausea, vomiting/dry heaves (3 episodes), and chills w/o fever. She did not appreciate any bloody emesis, chest pain or SOB. She has not noted any significant weight loss although she has not tolerated food/liquids since the onset of her sx. She has noted some occasional hot flashes/night sweats but states they have exacerbated when she stopped her HRT 2/2 menopause in January of 2021.Currently she denies dysuria, frequency, and suprapubic pain. Her last colonoscopy was in June 2020 which showed diverticulosis and hemorrhoids Pap Smear: Last performed 2019 (negative) Mammogram: Performed last (09/2020- [facility]) In the ED, out of concern for leukocytosis, tachycardia, hypotension, she was started on the following: She was started on the following: -Zosyn 3.375g IV q8hr -normal saline w/ 20 Meq KCl IV q8hr -Lovenox 40mg SQ q24hr -Amitryptyline 10mg po qhs -PRN tylenol 650 mg PO q6hr -PRN Zofran 4mg IV q6hr -PRN Dilaudid 0.25mg IV q6hr -Analgesia in ED: Fentanyl 25mcg IV x1 and Morphine 2mg IV x2 for abdominal pain. Was also given 1L NSS bolus. Lastly was given Zofran 4mg IV x1. Today (07/08/21) Renata shared that she has not had any additional episodes of vomiting, fevers or chills since admission. However, overnight she had an episode of diarrhea (non-bloody). After the episode she noted some SOB for which she was started on a nasal cannula, which helped. She said there is likely an anxiety component to her SOB and she has not had a productive or bloody cough ad no fevers/chills. Her appetite has greatly improved after her nausea meds were adjusted, and she is interested in starting a diet with more solid food. Otherwise no MAYBERRY, chest pain, SOB, LE edema, skin changes. Review of Systems Review of Systems: All systems reviewed & are unremarkable except as noted in Subjective Physical Exam Constitutional: appears well, NAD, sitting upright in bed with nasal cannula Eyes: PERRL, conjunctivae normal, anicteric sclerae Respiratory: normal respiratory effort, lungs clear to auscultation Cardiovascular: RRR, no murmur, no edema Gastrointestinal (Abdomen): Inspection/Auscultation: abdomen normal to inspection and normal bowel sounds some tenderness to palpation in epigastric region, improved from past exams Skin: no rashes, warm and dry Neurologic: PERRL, EOMI, accommodation nl, no face palsy, no dysarthria Results & Data Results & Data ([facility]) Vital Signs (Past 12 Hours) Vital Signs Temp Pulse Pulse Pulse Resp BP BP 07/08/21 08:10 36.5 C 61 17 96/64 L 07/08/21 07:10 36.5 C 61 18 109/69 07/08/21 04:00 36.4 C L 59 L 20 128/73 07/08/21 01:00 07/07/21 23:00 36.6 C 60 19 99/64 L 07/07/21 22:18 62 Pulse Ox Pulse Ox 07/08/21 08:10 98 07/08/21 07:10 97 07/08/21 04:00 95 07/08/21 01:00 95 07/07/21 23:00 98 07/07/21 22:18 Diagnostic Findings Laboratory Results WBC 13.61 K/uL (4.8-10.8) H 07/08/21 07:10 RBC 2.73 M/uL (4.2-5.4) L 07/08/21 07:10 Hgb 8.7 g/dL (12.0-16.0) L 07/08/21 07:10 POC Hgb 12.2 g/dl (12.0-16.0) 07/05/21 19:21 Hct 25.3 % (37-47) L 07/08/21 07:10 POC Hct 36 % (37-47) L 07/05/21 19:21 MCV 92.7 fL (80-100) 07/08/21 07:10 MCH 31.9 pg (25-34) 07/08/21 07:10 MCHC 34.4 g/dL (32-36) 07/08/21 07:10 RDW Std Deviation 46.3 fL (36.4-46.3) 07/08/21 07:10 RDW Coeff of Francois 13.8 % (11.5-14.5) 07/08/21 07:10 Plt Count 320 K/uL (130-400) 07/08/21 07:10 MPV 9.3 fL (7.4-10.4) 07/08/21 07:10 Immature Gran % (Auto) 0.4 % 07/06/21 07:03 Neut % (Auto) 75.8 % 07/06/21 07:03 Lymph % (Auto) 8.0 % 07/06/21 07:03 [place] % (Auto) 15.7 % 07/06/21 07:03 Eos % (Auto) 0.0 % 07/06/21 07:03 Baso % (Auto) 0.1 % 07/06/21 07:03 Neut # (Auto) 10.38 K/uL (1.4-6.5) H 07/06/21 07:03 Lymph # (Auto) 1.09 K/uL (1.2-3.4) L 07/06/21 07:03 [place] # (Auto) 2.15 K/uL (0.11-0.59) H 07/06/21 07:03 Eos # (Auto) 0.00 K/uL (0-0.5) 07/06/21 07:03 Baso # (Auto) 0.01 K/uL (0-0.2) 07/06/21 07:03 Immature Gran # (Auto) 0.06 K/uL (0.00-0.02) H 07/06/21 07:03 Absolute Nucleated RBC 0.13 K/uL (0-0) H 07/08/21 07:10 Nucleated RBC % (auto) 1.0 % 07/08/21 07:10 PT 13.2 Seconds (9.0-12.0) H 07/07/21 06:04 INR 1.3 (0.9-1.1) H 07/07/21 06:04 POC Sodium 129 mmol/L (135-144) L 07/05/21 19:21 Sodium 127 mmol/L (136-145) L 07/08/21 07:10 POC Potassium 3.3 mmol/L (3.3-5.0) 07/05/21 19:21 Potassium 4.7 mmol/L (3.5-5.1) 07/08/21 07:10 POC Chloride 93 mmol/L (101-112) L 07/05/21 19:21 Chloride 102 mmol/L (98-107) 07/08/21 07:10 Carbon Dioxide 18 mmol/L (21-32) L 07/08/21 07:10 POC Total CO2 19 mmol/L (24-31) L 07/05/21 19:21 Anion Gap 7 (3-11) 07/08/21 07:10 POC Anion Gap 21.0 mmol/L (16-25) 07/05/21 19:21 POC BUN 17 mg/dl (7-18) 07/05/21 19:21 BUN 21 mg/dl (6-23) 07/08/21 07:10 Creatinine 0.57 mg/dl (0.6-1.2) L 07/08/21 07:10 POC Creatinine 0.6 mg/dl (0.6-1.3) 07/05/21 19:21 Est Cr Clr Drug Dosing 88.8 ml/min 07/08/21 07:10 Est GFR ( Amer) 110.4 ml/min 07/08/21 07:10 Est GFR (Non-Af Amer) 95.3 ml/min 07/08/21 07:10 BUN/Creatinine Ratio 36.8 (10-20) H 07/08/21 07:10 Glucose 92 mg/dl (70-99(Fasting)) 07/08/21 07:10 POC Glucose (other) 137 mg/dl (70-99) H 07/05/21 19:21 Osmolality 268 mOsm/kg (280-300) L 07/06/21 07:03 Calcium 7.3 mg/dl (8.5-10.1) L 07/08/21 07:10 POC Ioniz Calcium Sherrill 1.12 mmol/l (1.12-1.32) 07/05/21 19:21 Phosphorus 2.6 mg/dl (2.5-4.9) 07/06/21 07:03 Magnesium 2.1 mg/dl (1.7-2.4) 07/06/21 07:03 Total Bilirubin 1.0 mg/dl (0.2-1.0) 07/06/21 07:03 AST 36 U/L (13-39) 07/06/21 07:03 ALT 52 U/L (7-52) 07/06/21 07:03 Alkaline Phosphatase 100 U/L (34-104) 07/06/21 07:03 Total Protein 6.3 gm/dl (6.0-8.3) 07/06/21 07:03 Albumin 3.2 gm/dl (3.4-5.0) L 07/06/21 07:03 Globulin 3.1 gm/dl (2.5-4.0) 07/06/21 07:03 Albumin/Globulin Ratio 1.0 (0.9-2) 07/06/21 07:03 Lipase 3 U/L (11-82) L 07/05/21 19:15 Urine Color Yellow 07/05/21 21:08 Urine Appearance Clear (Clear) 07/05/21 21:08 Urine pH 7.0 (4.5-7.5) 07/05/21 21:08 Ur Specific [place] > 1.045 (1.000-1.030) H 07/05/21 21:08 Urine Protein 2+ (Negative) H 07/05/21 21:08 Urine Glucose (UA) Negative (Negative) 07/05/21 21:08 Urine Ketones Trace (Negative) H 07/05/21 21:08 Urine Blood Negative (Negative) 07/05/21 21:08 Urine Nitrite Positive (Negative) A 07/05/21 21:08 Urine Bilirubin Negative (Negative) 07/05/21 21:08 Urine Urobilinogen Negative (Negative) 07/05/21 21:08 Ur Leukocyte Esterase Negative (Negative) 07/05/21 21:08 Urine WBC (Auto) 1-5 /hpf (0-5) 07/05/21 21:08 Urine RBC (Auto) 0-4 /hpf (0-4) 07/05/21 21:08 U Hyaline Cast (Auto) 0 /lpf (0-5) 07/05/21 21:08 U Epithel Cells (Auto) >30 /lpf (0-5) H 07/05/21 21:08 Urine Bacteria (Auto) Negative (Negative) 07/05/21 21:08 Urine Osmolality 765 mOsm/kg (500-800) 07/06/21 Unknown Ur Random Sodium < 10 mmol/L 07/06/21 Unknown Stl C. cayetanensis PCR Not Detected (NotDetected) 07/07/21 15:05 Stool Rotavirus A PCR Not Detected (NotDetected) 07/07/21 15:05 Stl Adenov F 40/41 PCR Not Detected (NotDetected) 07/07/21 15:05 Stool Astrovirus (PCR) Not Detected (NotDetected) 07/07/21 15:05 Stool Campylobacter PCR Not Detected (NotDetected) 07/07/21 15:05 Stl C. diff Tox A/B PCR Not Detected (NotDetected) 07/07/21 15:05 Stool Cryptosporidium PCR Not Detected (NotDetected) 07/07/21 15:05 Stl E.coli Shiga Tox PCR Not Detected (NotDetected) 07/07/21 15:05 Stl Enterotoxigenic E PCR Not Detected (NotDetected) 07/07/21 15:05 Stool EPEC (PCR) Not Detected (NotDetected) 07/07/21 15:05 Stool EAEC (PCR) Not Detected (NotDetected) 07/07/21 15:05 Stl E. histolytica PCR Not Detected (NotDetected) 07/07/21 15:05 Stool Giardia Lamblia PCR Not Detected (NotDetected) 07/07/21 15:05 Stool Salmonella PCR Not Detected (NotDetected) 07/07/21 15:05 Stool Sapovirus (PCR) Not Detected (NotDetected) 07/07/21 15:05 Stl P. shigelloides PCR Not Detected (NotDetected) 07/07/21 15:05 Stl Shigella/EIEC PCR Not Detected (NotDetected) 07/07/21 15:05 St Y.enterocolitica PCR Not Detected (NotDetected) 07/07/21 15:05 Stool Vibrio (PCR) Not Detected (NotDetected) 07/07/21 15:05 Stl Vibrio cholerae PCR Not Detected (NotDetected) 07/07/21 15:05 Stl Norovirus GI/GII PCR Not Detected (NotDetected) 07/07/21 15:05 SARS-CoV-2, RNA, NAAT NEGATIVE (NEGATIVE) 07/05/21 21:54 Impressions Abdomen/Pelvis CT 07/05/21 19:00 CT OF THE ABDOMEN AND PELVIS WITH CONTRAST CLINICAL HISTORY: Left-sided abdominal pain. COMPARISON STUDY: Chest CT May 20, 2014. TECHNIQUE: Following IV administration of 92 mL of Optiray, axial images of the abdomen and pelvis were obtained from the lung bases to the proximal femurs. Images were reviewed in the axial, sagittal, and coronal planes. IV contrast was administered without complication. Automated exposure control was utilized for the study. A dose lowering technique was utilized adhering to the principles of ALARA. CT DOSE: 291.29 mGy.cm FINDINGS: Trace bilateral pleural effusions within the lower chest are noted as well as interlobular septal thickening consistent with pulmonary edema. There is a possible 4 mm lingular nodule on axial image 36 of 396. Small hiatal hernia No pneumatosis, free air or portal venous gas is present. Pacer leads are partially imaged. Note is made of a 5.8 x 5.7 cm hypodense segment 8 mass within the right hepatic dome. This mass has irregular peripheral enhancement as well as nodular enhancing septations. This mass is new since chest CT of May 20, 2014. No additional hepatic lesions are present. Liver morphology is normal. Liver is mildly enlarged. The gallbladder is distended. There is trace pericholecystic fluid. No biliary or pancreatic ductal dilatation is present. No peripancreatic infiltration. Spleen, adrenal glands and kidneys are unremarkable. No hydronephrosis. Moderate diverticulosis is noted without evidence for acute diverticulitis. There is no bowel obstruction. There is subtle mesenteric stranding associated with jejunal loops within the left mid abdomen. No abdomi nal or pelvic lymphadenopathy. No suspicious lesions are identified within the visualized skeletal structures. Severe left hip osteoarthritis is noted. Appendix is normal. IMPRESSION: 1. Mild mesenteric stranding associated with jejunal loops within left mid abdomen. This represents a nonspecific enteritis. 2. 5.8 x 5.7 cm right hepatic dome mass which is new since chest CT of May 20, 2014. This lesion has irregular peripheral enhancement as well as nodular enhancing septations. This mass is suspicious for a neoplasm and favors a primary liver malignancy over metastatic disease. Nonemergent liver protocol CT or MRI is recommended for further evaluation. 3. Distended gallbladder with trace pericholecystic fluid. A right upper quadrant ultrasound could be obtained to exclude acute cholecystitis although no pericholecystic infiltration. 4. Mild interstitial pulmonary edema with trace bilateral pleural effusions. 5. Colonic diverticulosis. No evidence for acute diverticulitis. ACT 112: Positive. There are findings on this exam that require communication between the performing entity and the patient following Patient Test Result Information Act ([place] Act 112) guidelines. Electronically signed by: Sawyer Rivera M.D. 07/05/2021 8:18 PM Chest X-Ray 07/06/21 01:50 XR chest 1V portable CLINICAL HISTORY: Difficulty breathing. Evaluate for pulm edema and pleural effusions. COMPARISON STUDY: 02/12/2017 TECHNIQUE: 1 view of the chest FINDINGS: Single frontal view of the chest demonstrates the cardiomediastinal silhouette to be within normal limits. There has been interval placement of a dual lead permanent cardiac pacer. There is very mild indistinctness of the central hilar vessels suspicious for very mild central vascular congestion. There is no peripheral interstitial edema. There is minimal blunting of left costophrenic angle suspicious for small left pleural effusion. There is no evidence for right pleural effusion. There are no confluent alveolar opacities. There is no acute osseous pathology. IMPRESSION: 1. Interval pacer placement. 2. Evidence for very mild central vascular congestion and possible left pleural effusion. Follow-up PA and lateral radiographs would be recommended. ACT 112: Negative or not required by law. Electronically signed by: Yang Coleman M.D. 07/06/2021 9:03 AM Liver Ultrasound 07/06/21 10:00 US liver Limited abdomen CLINICAL HISTORY: Follow-up for evaluation of liver mass. COMPARISON: CT of the abdomen and pelvis from 07/05/2021 TECHNIQUE: Multiple grayscale and color images of the right upper quadrant of the abdomen. FINDINGS: Pancreas: The pancreas is within normal limits with no focal mass or peripancreatic fluid collection identified. Liver: Compared to the CT examination, a large, heterogeneous solid mass is present within the right lobe of the liver measuring 5.7 x 5.4 x 5.2 cm. There is again highly suspicious for a primary liver malignancy. CT of the liver without and with contrast using liver protocol or MRI is again the study of choice for further evaluation. There is no intrahepatic biliary duct dilatation. There is decreased flow within the portal vein. There is also suspicion of a small faye hepatic lymph node measuring 1.5 x 0.9 x 0.6 cm. Gallbladder: The gallbladder is distended with no evidence of cholelithiasis, wall thickening or pericholecystic edema. There is evidence for sludge within the gallbladder. Common Bile Duct: (CBD): It is normal in size measuring 6 mm Inferior Vena Cava (IVC): The imaged IVC is patent. Right kidney: There is no evidence for hydronephrosis, calculus or gross renal mass. The kidney is normal in size. IMPRESSION: 1. Ultrasound confirms a large solid heterogeneous mass within the liver again most suspicious for a malignant neoplastic process. Follow-up is again recommended as described above. ACT 112: Negative or not required by law. Electronically signed by: Yang Coleman M.D. 07/06/2021 11:05 AM Hepatobiliary Scan Nuclear Medicine 07/06/21 10:30 NUCLEAR HEPATOBILIARY SCAN WITH EJECTION FRACTION IMAGING CLINICAL HISTORY: Right upper quadrant abdominal pain. COMPARISON STUDY: Abdominal ultrasound dated 07/06/2021. TECHNIQUE: Dynamic images of the liver and anterior abdomen were obtained every 5 minutes for a total of 60 minutes following the IV administration of 5.2 mCi of technetium 99m Mebrofenin. 1.3 mcg of sincalide was then injected with additional images acquired every 5 minutes for 45 minutes to calculate the gallbladder ejection fraction. FINDINGS: The hepatobiliary scan shows prompt hepatic uptake. A photopenic defect is seen in the superior right lobe. There is visualized activity within the intra and extrahepatic biliary tree at 15 minutes, and within the gallbladder at 50 minutes. There is normal biliary to bowel transit, with small bowel visualized by 26 minutes. On the sincalide imaging, the gallbladder ejection fraction was measured at 35%. IMPRESSION: 1. Unremarkable nuclear hepatobiliary scan. There is no scintigraphic evidence of cholecystitis. 2. The gallbladder ejection fraction measured 35% which is low-normal. 3. A photopenic defect in the superior right lobe may correspond to the hepatic mass lesion seen by CT. ACT 112: Negative or not required by law. Electronically signed by: Olayinka Castellano M.D. 07/06/2021 1:23 PM Aspiration 07/07/21 09:00 US biopsy liver CLINICAL HISTORY: irregular mass COMPARISON STUDY: CT of the abdomen and pelvis July 05, 2021. PROCEDURE: The procedure, risks and benefits were discussed with the patient including the risk of bleeding, infection and injury to adjacent structures. The patient agreed to the procedure and informed written consent was obtained. The procedure was performed by Dr. Rivera following a timeout. Skin of the right upper quadrant was prepped and draped in sterile fashion and local anesthesia with 1% lidocaine. Under direct ultrasound guidance and utilizing a 5 1/2 inch 22-gauge Casey needle, 2 fine-needle aspirations of the 5 cm right hepatic lobe mass were obtained. Preliminarily by pathology revealed extensive neutrophils and necrosis. This raises the possibility of an infectious process such as abscess. The patient tolerated the procedure well and no immediate complications were evident. IMPRESSION: Successful ultrasound guided fine-needle aspiration of the right hepatic lobe lesion. Preliminary pathology results raised the possibility of an infectious/inflammatory process. Therefore, an abscess is within the differential. A mass cannot be excluded by imaging. Final pathology and microbiology pending. ACT 112: Negative or not required by law. Electronically signed by: Sawyer Rivera M.D. 07/07/2021 10:19 AM Medications Administered Current Inpatient Medications Acetaminophen (Acetaminophen 325 Mg Tab) 650 mg PO Q6H [facility] Stop: 08/06/21 12:14 Last Admin: 07/08/21 05:40 Dose: 650 mg Documented by: Amitriptyline HCl (Amitriptyline Hcl 10 Mg Tab) 10 mg PO HS [facility] Stop: 08/05/21 20:59 Last Admin: 07/07/21 21:19 Dose: 10 mg Documented by: Calcium Carbonate (Calcium Carbonate 1250mg Tab) 1,250 mg PO DAILY [facility] Stop: 08/05/21 08:59 Last Admin: 07/08/21 08:10 Dose: 1,250 mg Documented by: Enoxaparin Sodium (Enoxaparin Inj 40 Mg/0.4 Ml Syr) 40 mg SQ Q24H [facility] Stop: 08/05/21 08:59 Last Admin: 07/06/21 09:17 Dose: 40 mg Documented by: Fish Oil ([place]-3 (Purified Fish Oil) 1 Gm Cap) 1 gm PO BID [facility] Stop: 08/05/21 08:59 Last Admin: 07/08/21 08:11 Dose: 1 gm Documented by: Hydromorphone HCl (Hydromorphone Inj 0.5 Mg/0.5 Ml Syr) 0.25 mg IV Q6H PRN PRN Reason: Pain Stop: 07/20/21 01:47 Last Admin: 07/07/21 22:46 Dose: 0.25 mg Documented by: Potassium Chloride/Sodium Chloride (Normal Saline W/20 Meq Kcl) 20 meq in 1,000 mls @ 80 mls/hr IV .[id number] [facility]; Protocol Stop: 08/05/21 01:59 Last Admin: 07/08/21 08:09 Dose: 80 mls/hr Documented by: Famotidine 20 mg/ Syringe 5 mls @ 2.5 mls/min IV BID [facility] Stop: 08/06/21 20:59 Last Admin: 07/08/21 08:20 Dose: 2.5 mls/min Documented by: Ceftriaxone Sodium 2,000 mg/ (Dextrose) 70 mls @ 140 mls/hr IV DAILY [facility]; Protocol Stop: 07/18/21 08:59 Last Infusion: 07/08/21 09:46 Dose: Infused Documented by: Lactobacillus Acidophilus (Advanced Probiotic 1250 Mg Capsule) 2 cap PO DAILY [facility] Stop: 08/05/21 08:59 Last Admin: 07/08/21 08:10 Dose: 2 cap Documented by: Magnesium Oxide (Magnesium Oxide 400 Mg Tab) 400 mg PO BID [facility] Stop: 08/05/21 08:59 Last Admin: 07/08/21 08:10 Dose: 400 mg Documented by: Melatonin (Melatonin 3 Mg Tab) 3 mg PO HS PRN PRN Reason: Sleep Stop: 08/05/21 01:33 Metronidazole (Metronidazole 500 Mg Tab) 500 mg PO Q8 [facility]; Protocol Stop: 07/14/21 13:59 Last Admin: 07/08/21 05:40 Dose: 500 mg Documented by: Multivitamins (Multivitamin Tab) 1 tab PO DAILY [facility] Stop: 08/05/21 08:59 Last Admin: 07/08/21 08:10 Dose: 1 tab Documented by: Ondansetron HCl (Ondansetron Inj 2 Mg/Ml 2 Ml Vial) 4 mg IV Q6H [facility] Stop: 08/06/21 11:44 Last Admin: 07/08/21 05:39 Dose: 4 mg Documented by: Pantoprazole Sodium (Pantoprazole 40 Mg Tab) 40 mg PO BID [facility] Stop: 07/11/21 20:59 Last Admin: 07/08/21 08:11 Dose: 40 mg Documented by: Sucralfate (Sucralfate 1 Gm Tab) 1 gm PO QID [facility] Stop: 08/06/21 16:59 Last Admin: 07/08/21 08:10 Dose: 1 gm Documented by: Vitamin D (Cholecalciferol 5,000 Units 125 Mcg Tab) 5,000 units PO BID [facility] Stop: 08/05/21 08:59 Last Admin: 07/08/21 08:11 Dose: 5,000 units Documented by: (1) UTI (urinary tract infection) Urinary tract infection type: site unspecified
--- NOTE | 2021-07-08 13:26 | Discharge Summary ---
Date of Service July 08, 2021 Admission HPI Per Admitting Provider Avril Bowen is a 66yo female with PMHx significant for complete heart block (with PPM), chronic back pain, generalized somatic dysfunction and depression who presented to [facility] ED on 07/05 for nausea, vomiting, decreased appetite and upper abdominal pain x5 days. Patient has vomited 3 times over this time period - all non-bloody and non-bilious. She has had minimal PO intake, with inability to tolerate solids and only able to drink small amounts without getting severely nauseous. Mostly has burning epigastric pain that is not severe, and the pain also is present in LUQ>RUQ. Patient denies fever/chills or diarrhea. Does have chronic constipation. Patient also reports several months of intermittent dysuria and urinary urgency, although she was seen several times by PCP and had UA/urine cx that was negative for UTI. Has not been on abx for this, although reports persistent symptoms. Denies flank pain. Patient also reports worsening nocturnal sweats as well as intermittent hot flashes and chills for the last several months. Denies weight loss or chronically reduced appetite. Denies daily headaches, chronic vomiting, new bony pains or hematochezia. Denies cough/hemoptysis. Does not have personal h/o cancer, and just had normal colonscopy last year, but does have +family h/o ovarian cancer (mom) and colon cancer (dad). Denies tobacco or alcohol use. Of note the patient is on a large variety of supplements and vitamins. In the ED the patient was tachycardic to 119 and hypotensive to 95/72, which improved after IVF bolus. Afebrile and otherwise stable on room air. Laboratory evaluation was significant for WBC 18.6 with neutrophilic predominance and left shift, Hgb 10.9 (12.7 in 12/2019), Na 128, K 3.3, Cl 92, HCO3 21, AG 15, ALT 67, AST 58, ALP 126. Lipase WNL. CT A/P shows mild mesenteric stranding associated with jejunal loops in left mid abdomen suspicious for nonspecific enteritis. Also showed 5.8x5.7cm right hepatic dome mass (new since 2014) with irregular peripheral enhancement and nodular enhancing septations suspicious for neoplasm. Also showed distended gallbladder with trace pericholecystic fluid. Lastly showed mild interstitial pulmonary edema with trace bilateral pleural effusions. Patient was started on Zosyn. She was also given Fentanyl 25mcg IV x1 and Morphine 2mg IV x2 for abdominal pain. Was also given 1L NSS bolus. Lastly was given Zofran 4mg IV x1. Principal Diagnosis General: A&Ox3. NAD. Cooperative. HEENT: Atraumatic, normocephalic. Pulm: CTAB A&P. -wheezes, -rales, -rhonchi. Symmetrical chest rise. No increase work of breathing. No respiratory distress. Cardiac: RRR, -mrg. Radial pulses intact and symmetrical. Abdominal: soft, non-distended, tenderness most pronounced in epigastrium but also mild TTP in RUQ and LLQ. Positive Monreal sign. NA BS x 4. Skin: warm, dry, no rash Discharge Exam Constitutional WD/WN, vitals as above Eyes PERRL, conjunctivae normal, anicteric sclerae ENMT external ear and nose normal, oropharynx normal Neck trachea midline, no thyromegaly Respiratory normal respiratory effort, lungs clear to auscultation Cardiovascular RRR, no murmur, no edema Chest (Breasts) Chest: normal inspection of chest Gastrointestinal (Abdomen) Inspection/Auscultation: abdomen normal to inspection and normal bowel sounds Percussion/Palpation: + abdomen tender (in LUQ, eppigastric regions) and abdomen soft Skin no rashes, warm and dry Psychiatric A+Ox3, euthymic affect Discharge Data Allergies Allergy/AdvReac Type Severity Reaction Status Date / Time No Known Allergies Allergy Verified 07/05/21 19:33 Consultations 07/05/21 20:36 ED Decision to Admit Stat 07/08/21 12:11 Burn CD for patient Routine Ordered Studies 07/05/21 19:00 CT abd pelvis IV con only Stat 07/06/21 10:00 US liver Urgent 07/07/21 09:00 US FNA w/img 1st lesion Routine Hospital Course (1) Liver mass: (2) Abdominal pain: (3) Hypokalemia: (4) Nausea: (5) Acute dehydration: (6) Acute hyponatremia: 66yo Female with PMH Pacemaker, depression, IBS, HLD here for abdominal pain anorexia vomitting chills. #R hepatic mass/liver abcess -CT abd/pelvis: 5.8 x 5.7 cm right hepatic dome mass which is new since chest CT of May 20, 2014. This lesion has irregular peripheral enhancement as well as nodular enhancing septations.Suspicion for malignancy. -liver US: large, heterogeneous solid mass is present within the right lobe of the liver measuring 5.7 x 5.4 x 5.2 cm -liver biopsy 07/07: No malignant cells are seen and the appearance is consistent with an abscess. Gram positive cocci seen on wound culture -on metronidazole 500 mg po q8, ceftriaxone 2g IV daily -WBC 18.60 -->13.61 -transfer to [facility] for IR drainage of liver abcess #abdominal pain, nausea, vomiting, weakness -presumed cholecyctitis -CT Abd/pelvis: Distended gallbladder with trace pericholecystic fluid -HIDA scan unremarkable -advanced from NPO to clear diet, patient appetite returning -on famotidine 20 mg IV daily, sucralfate 1gm po qid, zofran 4mg IV q6, pantoprazole 40mg BID, tylenol 650mg PO q6 -PRN dilaudid 0.25mg IV q6 #hyponatremia, hypokalemia -given IVF -Na 127 -K 4.7 resolved #asymptomatic bacteriuria -on metronidazole 500 mg po q8, ceftriaxone 2g IV daily #Depression/Anxiety -continue Amitriptyline -placed on 2L O2 due to sensation of air hunger, pulse ox wnl -anxiety partially due to concerns of weakness, home care issues, consider case management Total Time Total Time Spent Total Time Spent (In Minutes): see attending attestation Discharge Plan Discharge Items Patient Disposition: Transfer Acute Care Hospital Reason For Visit: ELECTROLYTE ABNORMALITIES, DEHYDRATION, LIVER MASS Discharge Diagnosis: Liver abcess Activity: Per Instructions section Non-emergency contact: Primary Care Provider Call non-emergency contact if: you have any medication questions, your symptoms worsen and you have a fever Follow-up/Referrals: Filemon Bowen DO [Primary Care Provider] - Diet: Clear liquid Addtl Attending Provider Instructions: 66yo Female with PMH Pacemaker, depression, IBS, HLD here for abdominal pain anorexia vomitting chills. #R hepatic mass/liver abcess -CT abd/pelvis: 5.8 x 5.7 cm right hepatic dome mass which is new since chest CT of May 20, 2014. This lesion has irregular peripheral enhancement as well as nodular enhancing septations.Suspicion for malignancy. -liver US: large, heterogeneous solid mass is present within the right lobe of the liver measuring 5.7 x 5.4 x 5.2 cm -liver biopsy 07/07: No malignant cells are seen and the appearance is consistent with an abscess. Gram positive cocci seen on wound culture -on metronidazole 500 mg po q8, ceftriaxone 2g IV daily #abdominal pain, nausea, vomiting -presumed cholecyctitis -CT Abd/pelvis: Distended gallbladder with trace pericholecystic fluid -HIDA scan unremarkable -advanced from NPO to clear diet -on famotidine 20 mg IV daily, sucralfate 1gm po qid, zofran 4mg IV q6, pantoprazole 40mg BID, tylenol 650mg PO q6 -PRN dilaudid 0.25mg IV q6 #hyponatremia, hypokalemia -given IVF -Na 127 -K 4.7 resolved #asymptomatic bacteriuria -on metronidazole 500 mg po q8, ceftriaxone 2g IV daily #Depression -continue Amitriptyline Pending Studies at Discharge: No Stand-Alone Forms: [facility] Skilled Items Patient informed of condition?: Yes DNR: No Discharge Level of Care: Other Communicable Disease: No Discharge Prognosis: Stable Lines: Peripheral IV Urinary Catheter: No Medications and DC Order Prescriptions: Continued coQ10 (ubiquinol) 100 mg capsule 100 mg PO DAILY RF: 0 magnesium 250 mg tablet 250 mg PO BID RF: 0 Green Tea capsule 1 cap PO DAILY RF: 0 hyaluronic acid, hydrol (bulk) 700 mg PO BID RF: 0 omega-3 fatty acids 1,000 mg capsule 1,000 mg PO BID RF: 0 organ concentrates 200 mg capsule 0 mg PO DAILY RF: 0 mlalquou-rwyby-iww2-C-samaria-bor [Nfkqcvew-Xrgaw-MKM(with boron)] 177-512-40-1 mg tablet 1 tab PO BID RF: 0 multivitamin with iron [Daily Multiple Vitamins/Iron] tablet 1 tab PO DAILY RF: 0 cranberry extract 500 mg tablet 500 mg PO DAILY RF: 0 Collagen Plus Vitamin C 125-740 mg Capsule 1 cap PO DAILY RF: 0 cholecalciferol (vitamin D3) [Vitamin D3] 125 mcg (5,000 unit) Tablet 125 mcg PO BID RF: 0 Tart Ingram Extract 1,000 mg Capsule 1,000 mg PO BID RF: 0 Probiotic 10 billion cell Capsule 10,000 mmu cells PO DAILY RF: 0 calcium carbonate [Calcium 600] 600 mg calcium (1,500 mg) Tablet 600 mg PO DAILY RF: 0 B-complex with vitamin C Tablet 1 tab PO DAILY RF: 0 meloxicam [Mobic] 7.5 mg tablet 7.5 mg PO QAM RF: 0 amitriptyline 10 mg tablet 10 mg PO HS RF: 0 2 Unknown Female Hormones Supp 1 dose PO DAILY RF: 0 Discharge Orders: Discharge Order (Routine); Ordered 07/08/21 Ordered By: Magalie Peters Admission Data Admit Date/Time: 07/05/21 22:49 Attending Provider: Krzysztof Iverson Admit Provider: Jovani Cloud Primary Care Provider: Filemon Bowen Other Providers: Marvel Barajas Other Interventions: Discharge Summary Assessment (RN) Last Done: 07/08/21 13:37 Supervising Physician Co-Signing Physician Notes I personally examined the patient and verified all bradford points of history and exam, discussed case, and agree with decision making with Dr ePters. still w food aversion. feels lousy, weak, lightheaded. easily fatigued fortunatley liver bx appears inflammatory probable infectious, not malignant! vitals noted nad heent nc at mmm breathing unlabored no accessory muscles does appear fatigued liver abscess - await path/cultures. on rocephin/flagyl. for transfer for drainage. blood cultures sent - of note AFTER abx were started - due to initial liver imaging appearing c/w malignancy -not until after biopsy that it was clear this was an abscess - but also was initially on empiric abx when primary dx at admission was possible cholecystitis. continue rocephin/flagyl. consider further secondary w/u for bacteremia. IR to drain liver abscess otherwise as above Resident Activity Tracking Resident Involvement: Resident Care Provided Care Provided: Adult Hospital Medicine
--- NOTE | 2021-07-08 16:46 | Billing Data ---
Date of Service July 08, 2021 Coding Level of Care Code D/C DAY MANAGEMENT <30 MINS
== END 2021-07-08 17:16 | disposition short-term general hospital (02) | DRG 442 ==
LOC: ED 18:43 → SUATTDRO 22:49 → 2N 22:49

== ENCOUNTER 2022-01-25 08:01 | Observation (INO) ==
--- NOTE | 2021-12-23 11:26 | PAT Medication Instructions ---
Medication Instructions Date of Service December 23, 2021 Home Medications Medication Instructions Recorded apixaban 5 mg tablet (Eliquis) 5 mg PO BID #180 tabs 08/04/21 diclofenac sodium 1 % topical gel 2 g topical QID PRN pain, moderate 09/26/21 #100 grams acetaminophen 650 mg 1,300 mg PO Q8H #90 tabs 11/01/21 tablet,extended release (Tylenol Arthritis Pain) meloxicam 15 mg tablet 15 mg PO DAILY #90 tabs 11/01/21 quetiapine 25 mg tablet (Seroquel) 25 mg PO HS #30 tabs 12/05/21 tramadol 50 mg tablet 50 mg PO HS PRN Pain #30 tabs 12/05/21 Lactobacillus acidophilus 10 billion cell capsule (Probiotic) 10,000 mmu cells PO QAM apixaban 5 mg tablet (Eliquis) 5 mg PO BID antiarthritic combination no.2 900 mg tablet (glucosamine-chondroitin) 900 mg PO BID coQ10 (ubiquinol) 100 mg capsule 100 mg PO QAM cranberry 400 mg capsule 400 mg PO QAM diclofenac sodium 1 % topical gel 2 g topical QID PRN pain, moderate multivitamin (Daily Multi-Vitamin tablet) 1 tab PO QAM omega 3,6,9 combination no.7 92 mg (43 mg-22 [id number]) chew tablet 92 mg PO BID acetaminophen 650 mg tablet,extended release (Tylenol Arthritis Pain) 1,300 mg PO Q8H meloxicam 15 mg tablet 15 mg PO DAILY quetiapine 25 mg tablet (Seroquel) 25 mg PO HS tramadol 50 mg tablet 50 mg PO HS PRN Pain Powder Collagen 1 dose PO QAM ifdlulk-phuqaltawjibw-rznwrhjf 250 mg-250 mg-65 mg tablet (Excedrin Extra Strength) 1 tab PO Q6H PRN Headache cholecalciferol (vitamin D3) 10 mcg (400 unit) tablet (Vitamin D3) 10 mcg PO BID green tea extract 500 mg capsule 500 mg PO BID magnesium 200 mg tablet 200 mg PO BID sodium hyaluronate 20 mg capsule 60 mg PO BID sour ingram extract 1,000 mg capsule (Tart Ingram Extract) 1,000 mg PO QAM ASK your surgeon for instructions diclofenac sodium 1 % topical gel 2 g topical QID PRN pain, moderate meloxicam 15 mg tablet 15 mg PO DAILY krefxot-rfkebxyjjltyv-vdzettsk 250 mg-250 mg-65 mg tablet (Excedrin Extra Strength) 1 tab PO Q6H PRN Headache ASK your prescriber and surgeon apixaban 5 mg tablet (Eliquis) 5 mg PO BID (in order for spinal anesthesia, Apixaba/Eliquis needs to be stopped 72 hours/3 days before surgery. Please check if okay with doctor that prescribes this to you) STOP taking 2 weeks before surgery (or as soon as possible if surgery is within 2 weeks) antiarthritic combination no.2 900 mg tablet (glucosamine-chondroitin) 900 mg PO BID coQ10 (ubiquinol) 100 mg capsule 100 mg PO QAM cranberry 400 mg capsule 400 mg PO QAM omega 3,6,9 combination no.7 92 mg (43 mg-22 [id number]) chew tablet 92 mg PO BID Powder Collagen 1 dose PO QAM green tea extract 500 mg capsule 500 mg PO BID sodium hyaluronate 20 mg capsule 60 mg PO BID sour ingram extract 1,000 mg capsule (Tart Ingram Extract) 1,000 mg PO QAM DO NOT take the morning of surgery Lactobacillus acidophilus 10 billion cell capsule (Probiotic) 10,000 mmu cells PO QAM multivitamin (Daily Multi-Vitamin tablet) 1 tab PO QAM cholecalciferol (vitamin D3) 10 mcg (400 unit) tablet (Vitamin D3) 10 mcg PO BID magnesium 200 mg tablet 200 mg PO BID Take morning of surgery With a small sip of water, OTHERWISE NOTHING TO EAT OR DRINK AFTER MIDNIGHT: acetaminophen 650 mg tablet,extended release (Tylenol Arthritis Pain) 1,300 mg PO Q8H Take evening before surgery acetaminophen 650 mg tablet,extended release (Tylenol Arthritis Pain) 1,300 mg PO Q8H quetiapine 25 mg tablet (Seroquel) 25 mg PO HS tramadol 50 mg tablet 50 mg PO HS PRN Pain (if needed) cholecalciferol (vitamin D3) 10 mcg (400 unit) tablet (Vitamin D3) 10 mcg PO BID magnesium 200 mg tablet 200 mg PO BID Other Notes If you have any questions please call us at [phone] or [phone] or [phone] or [phone]
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
[2022-01-03 19:27] LABS: Appearance Synovial Fluid Bloody; Color Synovial Fluid Red; Mononuclear WBC Synovial 49.3 %; Polynuclear WBC Synovial 50.7 %; RBC Synovial Fluid (A) 112000 /uL; Source Synovial Fluid Hip; WBC Synovial Fluid (A) 75 /ul (0-200)
--- NOTE | 2022-01-07 09:24 | History and Physical Report ---
CHIEF COMPLAINT: Left hip pain. HISTORY OF PRESENT ILLNESS: A 66-year-old white female who has about a 10-year history of gradually progressive increasing left hip pain that has gotten markedly worse over the past year. She does hav e a history of a liver abscess treated at [facility] about a year ago. She got through this and then developed a urinary tract infection. She does have a history of multiple infections in the past, but nothing currently active. Her hip is bothering her more than anything. She limps pretty much all t he time. She cannot walk more than a block due to the pain. She describes groin pain, thigh pain, b uttock pain, pain to her knee. No numbness. PAST MEDICAL HISTORY: 1. Atrial fibrillation, on Eliquis. 2. Anxiety. 3. History of liver abscess. 4. Urinary tract infection. PAST SURGICAL HISTORY: Includes liver abscess. ALLERGIES: None. CURRENT MEDICATIONS: Include: 1. Tylenol. 2. Eliquis. 3. Vitamin D3. 4. Coenzyme Q. 5. Topical diclofenac. 6. Magnesium. 7. Meloxicam. 8. Multivitamin. 9. Probiotic. 10. Quetiapine. 11. Tramadol. SOCIAL HISTORY: A 66-year-old female. She is . Does not drink. FAMILY HISTORY: Noncontributory. REVIEW OF SYSTEMS: Negative for diabetes, neurologic problem, vascular problem, or bleeding disorder s. No history of DVT or PE. She is on Eliquis. She has a history of multiple infections in the pas t, but nothing active. PHYSICAL EXAMINATION: GENERAL: Shows a pleasant middle-aged female. Looks to be in pretty good health. HEENT: Benign. NECK: Supple. No lymphadenopathy. LUNGS: Clear to auscultation. HEART: Has a regular rate and rhythm. ABDOMEN: Soft, nontender, nondistended. EXTREMITIES: Grossly neurovascularly intact except as follows. Examination of the left hip revealed patient walks with a markedly antalgic gait. She limps on the l eft side. She is about a centimeter short on the left side compared to right. She does have pain wi th any type of hip motion. She can internally rotate to about 10 degrees. Negative straight leg pak se. X-RAYS: X-rays of the left hip were reviewed. It shows advanced left hip arthritis. She has got co mplete loss of her joint space. She has cystic changes on both sides of the joint. LABS: We did get some labs, which were all pretty normal. Her sed rate and C-reactive protein were elevated. We did have her hip aspirated by Dr. Conde, which revealed only around 75 white cells. No signs of infection. Cultures were no growth. ASSESSMENT: A 66-year-old female with a history of a liver abscess as well as urinary tract infectio n in the past with advanced progressive left hip arthritis that has gotten significantly worse over t he past year. She has failed conservative measures and would like to have her left hip replaced. Sh juan does have a history of infection, but there does not seem to have active hip infection, which was a concern. PLAN: We are going to proceed with left hip replacement. The risks and benefits of this procedure w ere explained to the patient and include but not limited to DVT, PE, , infection, neurological i njury, vascular injury, bleeding problem, pain, limited range of motion, stiffness, failure to reliev e her symptoms, incomplete relief of symptoms, etc. The patient understands and desires to proceed. Informed consent was obtained. I did talk to her briefly that if there is infection in there, we have to be likely placed and antibi otic mold and we will be prepared for that. I think it is unlikely based on the aspiration. Her sed rate and C-reactive protein are still elevated for unclear reasons. As far as discharge plan, she is planning to be discharged to home using [employer] [facility] adeline siddiqiu Job ID: [id number]
[~2022-01-25 08:01] MED LIST changes: +ACETAMINOPHEN 500 MG TAB PO SCH; -B-COTAB18 PO; +BUPIVACAINE 0.5 % 5 MG/1 ML PF 10ML VIAL ONE; -CALC1TAB62 PO; -CHOL1000 PO; +CeleBREX 200 MG CAP PO SCH; -ESTR1TAB9 PO; +FAMOTIDINE 20 MG TAB PO SCH; -GLUCTAB7 PO; +LR 15ML/HR IV SCH; +LR 500ML BOLUS, THEN 15ML/HR IV SCH; +LR 60ML/HR IV SCH; +METOCLOPRAMIDE HCL 10 MG TABLET PO SCH; -MULT-506 PO; -OMEG12006 PO; +Scopolamine 1 MG TDSY TD SCH; +Scopolamine CHECK PATCH PLACEMENT SCH; +TRANEXAMIC ACID 1,000 MG **IV Pre-op IV SCH; +ceFAZolin 2000MG 2,000 MG/15 ML SYR IV SCH
--- NOTE | 2022-01-25 08:51 | History & Physical Bridge Note ---
Date of Service January 25, 2022 History & Physical Bridge Note I have examined the patient, reviewed the History & Physical and in the interval since the performance of the History & Physical I have noted the following changes of clinical significance: no changes noted
[2022-01-25] MEDS ORDERED: BUPIVACAINE 0.5 % 5 MG/1 ML MPF 30ML VIAL ONE (10:07)
[2022-01-25] MEDS ORDERED: EPINEPHrine INJ 1 MG/ML AMP ONE (10:07)
[2022-01-25] MEDS ORDERED: LACTATED RINGER'S 500 ML IV PRN (10:38)
[2022-01-25] MEDS ORDERED: diphenhydrAMINE 50 MG/ML VIAL IV PRN (10:38)
[2022-01-25] MEDS ORDERED: PROMETHAZINE HCL 6.25 MG in SODIUM CHLORIDE 0.9% 50 ML IV PRN (10:38)
[2022-01-25] MEDS ORDERED: NALBUPHINE HCL INJ 10 MG/ML AMP IV PRN (10:38)
[2022-01-25] MEDS ORDERED: NALOXONE HCL 0.4 MG/1 ML VIAL/CARP IV PRN (10:38)
[2022-01-25] MEDS ORDERED: ONDANSETRON INJ 2 MG/ML 2 ML VIAL IV PRN (10:38)
[2022-01-25] MEDS ORDERED: ePHEDrine sulfate 50 MG/ML AMP IV PRN (10:38)
[2022-01-25] MEDS ORDERED: MoRPHine SULFATE PF 1 MG/ML 10 ML AMP/VIAL INT SPINAL ONE (10:38)
[2022-01-25] MEDS ORDERED: MoRPHine SULFATE 2 MG/ML CARP IV PRN (10:38)
[2022-01-25] MEDS ORDERED: KETOROLAC 30 MG/ML VIAL IV PRN (10:38)
[2022-01-25] MEDS ORDERED: NALOXONE HCL 1 MG in SODIUM CHLORIDE 0.9% 1000ML 1,000 ML IV PRN (10:38)
[2022-01-25] MEDS ORDERED: NALOXONE HCL 0.08 MG in SYRINGE 1.8 ML IV PRN (10:38)
[2022-01-25] MEDS ORDERED: NO NARCOTICS OR SEDATIVES SCH (10:45)
[2022-01-25] MEDS ORDERED: SODIUM CHLORIDE 0.9% 1000ML 1,000 ML IV SCH (10:45)
[2022-01-25] MEDS ORDERED: DC INTRASPINAL MORPHINE SCH (10:45)
--- NOTE | 2022-01-25 12:24 | Operative Report ---
PG Post Operative Report Pre & Post Diagnosis Operation Date: 01/03/22 10:40 <No data on this case meets the specified criteria> Operation Date: 01/25/22 10:40 Pre-Op Diagnosis: Left Hip Advanced Degenerative Joint Disease Post-Op Diagnosis: Left Hip Advanced Degenerative Joint Disease I identified the patient and participated in the time-out.: Yes Procedure Operation Date: 01/03/22 10:40 <No data on this case meets the specified criteria> Operation Date: 01/25/22 10:40 Actual Procedures p Left Lateral Total Hip Arthroplasty--Uncemented(Left) - Edmond Baeza MD Surgeon Edmond Baeza MD Production Planner Scheduler Marquise Schulte PA-C Estimated Blood Loss 150 Findings Consistent with Post-Op Diagnosis Operative findings were advanced left hip DJD. She had collapse of the femoral head. 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 There was no signs of infection. She had anterior and posterior acetabular osteophytes. Fluids 1500 cc Specimens Left femoral head sent for pathology Anesthesia Type Spinal MAC Complications none Disposition Accompanied Patient To Recovery: Yes Indications Patient is 66-year-old female whose had a several year history of increasing left hip pain discomfort got markedly worse over the past year. X-rays show advanced hip arthritis. She does a history of multiple infections and we did an infectious work-up which was negative. Patient elected proceed with total hip arthroplasty. Description of Procedure Operative implants consist of: 1. Biomet G7 size 54 mm acetabular shell. 2. 6.5 cancellous acetabular screws 1 of 35 mm length 1 to 20 mm length. 3. [employer] hole amf mechanic. 4. Highly cross-linked polyethylene liner with a 54 mm outer diameter 36 mm inner diameter. 5. DePuy Corail size 11 short neck 125 degree angle femoral stem. 6. +5/36 mm ceramic articular ball. The patient was taken to the operating, identified, and placed on the operating table supine position protectors were properly padded. IV antibiotics tried by anesthesia team. A spinal anesthetic and been implemented in the holding area. A Weinberg catheter was placed in sterile fashion. The patient then placed in the right lateral decubitus position. An axillary roll was placed. A Stulberg hip positioner was used for positioning. Left hip and leg were then prepped and draped in usual sterile fashion. A posterior lateral approach to the left hip was then performed through a curvilinear incision centered over the greater trochanter. Sharp dissection Through subcutaneous tissue down below the IT band gluteal fascia. IT band gluteal fascia/longitudinally in line with skin incision. The underlying greater bursa was excised. The piriformis and external rotators along with the posterior hip joint capsule were then released from the posterior aspect hip joint as a single layer. Great care was taken throughout the procedure protect the sciatic nerve at all times. Hip was internally rotated. There is no signs of infection. Her head was clearly necrotic and collapsed. There was a lot of fibrinous debris in the joint. Femoral neck osteotomy cut was then made about 8 mm above the lesser trochanter. Femoral head was removed and sent for pathology. The femur was retracted anteriorly. Attention drawn the acetabulum. The acetabulum labrum was excised. The pulmonary fat was excised. Sequential reaming the acetabular was then performed begin with size 47 progressing up to 53. I did ream some with a 54 reamer and then placed a 54 mm cup in about 40 degrees lateral weight opening and 20 degrees of anteversion. It was fixed with two 6.5 cancellous acetabular screws. A trial liner was placed. I did remove an anterior acetabular osteophyte. Attention drawn the femur. The proximal femur was entered with a cookie cutter followed by canal finder. I then broached beginning with size 8 and progressed up to a size 11. We got excellent fit at 11. We then trialed the hip and the short neck seem to be most appropriate. The +5 articular ball provide full stability and full extension and external rotation and flexion to 9 degrees internal rotation over 50 degrees. Leg lengths seem equal. We elect to place these implants. All trial implants were removed. An apex hole amf mechanic was placed. Highly cross-linked polyethylene liner was placed. A DePuy Ximalaya size 11 KLA short neck 125 degree angle stem was impacted in position. +5/36 mm ceramic articular ball was placed. Hip was located once again found to be stable. Attention drawn toward closing. Wound was irrigated scopes also pulsatile lavage solution. We did inject locally with 50 cc of half percent Marcaine with epinephrine. The posterior capsule and external rotators were then repaired as a single layer through drill holes in the posterior trochanter with #2 Tycron suture. The IT band gluteal fascia then closed in 1 PDS suture in a running fashion for subcutaneous tissue then closed with 2 layers of the deep layer #1 Vicryl suture and subcutaneous tissues with 2-0 Dexon suture in a buried interrupted fashion. Skin was closed skin slime. Leg was then cleaned and dried a sterile dressing was Xeroform, 4 x 4's, sterile ABD pad, foam tape was applied. The patient then transferred to the recovery room in stable condition. Patient tolerated the procedure well and there were no complications. Marquise Schulte, my physician assistant food service director, was present for the entire procedure. His assistance was essential and required for appropriate patient positioning, prepping and draping, surgical exposure, performing the technical details of the operation, placement the implants, closure of the wound, and placement of the sterile bandage. I attest to the content of the Intraoperative Record and any orders documented therein. Any exceptions are noted below.
--- NOTE | 2022-01-25 13:45 | Anesthesiology Progress Note ---
Date of Service January 25, 2022 Anesthesia Post Procedure Vital Signs Vital Signs: Temp Pulse Pulse Resp BP Pulse Ox O2 Del Method 01/25/22 13:45 36.2 C L 61 17 124/72 95 Room Air 01/25/22 13:35 66 22 109/72 100 Room Air 01/25/22 13:25 63 13 144/76 H 98 Room Air 01/25/22 13:15 65 16 130/67 100 Room Air 01/25/22 13:05 66 12 131/68 97 Room Air 01/25/22 12:55 60 15 127/74 98 Room Air 01/25/22 12:45 60 15 127/62 100 Oxymask 01/25/22 12:35 61 15 107/59 L 100 Oxymask 01/25/22 12:25 60 20 98/66 L 96 Oxymask 01/25/22 12:16 36 C L 61 22 121/57 L 99 Oxymask 01/25/22 08:45 36.6 C 66 18 128/82 96 Room Air 01/25/22 08:45 Room Air O2 Flow Rate 01/25/22 13:45 01/25/22 13:35 01/25/22 13:25 01/25/22 13:15 01/25/22 13:05 01/25/22 12:55 01/25/22 12:45 2 01/25/22 12:35 6 01/25/22 12:25 6 01/25/22 12:16 6 01/25/22 08:45 01/25/22 08:45 Transfer of Care Handoff Completed per policy Notes Mental Status: alert / awake / arousable Patient Amnestic to Procedure: Yes Nausea / Vomiting: adequately controlled Pain: adequately controlled Airway Patency, RR, SpO2: stable & adequate BP & HR: stable & adequate Hydration State: stable & adequate Anesthetic Complications: no major complications apparent
[2022-01-25] MEDS ORDERED: ALUMINUM/MAGNESIUM SUSP 30 ML UDC PO PRN (13:54)
[2022-01-25] MEDS ORDERED: bisacodyL 10 MG SUPP PR PRN (13:54)
[2022-01-25] MEDS ORDERED: MAGNESIUM HYDROXIDE SUSP 30 ML UDC PO PRN (13:54)
--- NOTE | 2022-01-25 14:11 | XRay Report ---
SINGLE VIEW PELVIS; SINGLE VIEW LEFT HIP CLINICAL HISTORY: Postoperative examination. FINDINGS: An AP portable view of the hips and pelvis with a crosstable lateral portable view of the l eft hip are obtained. A bipolar left hip arthroplasty is in near-anatomic alignment. At least 2 corti mike lag screws transfix the acetabular cup. No acute fracture is identified. There are expected posto perative changes overlying the left hip including skin clips, subcutaneous gas, and soft tissue swell ing. A Weinberg catheter is in place. IMPRESSION: Expected postoperative findings status post left hip arthroplasty. No acute fracture is s een. ACT 112: Negative or not required by law. Electronically signed by: Olaynika Castellano M.D. 01/25/2022 2:10 PM
[2022-01-25] MEDS: SODIUM CHLORIDE 0.9% 1000ML 1,000 ML IV SCH ×2 (15:10→21:31)
[2022-01-25] MEDS: ACETAMINOPHEN 500 MG TAB PO SCH ×2 (15:14→21:26)
[2022-01-25] MEDS: Scopolamine CHECK PATCH PLACEMENT SCH ×2 (16:13→22:45)
[2022-01-25] MEDS: KETOROLAC TROMETHAMINE 15 MG/ML VIAL IV SCH ×2 (16:13→21:26)
[2022-01-25] MEDS: ceFAZolin 1000MG 1,000 MG/7.5 ML SYR IV SCH (17:17)
[2022-01-25] MEDS: ASCORBIC ACID 500 MG TAB PO SCH (17:18)
[2022-01-25] MEDS ORDERED: TRANEXAMIC ACID / 0.7% NACL 1,000 MG/100 ML BAG IV SCH (18:30)
[2022-01-25] MEDS ORDERED: SENNA 8.6 MG TAB PO SCH (21:00)
[2022-01-25] MEDS ORDERED: GREEN TEA EXTRACT PO SCH (21:00)
[2022-01-25] MEDS ORDERED: SODIUM HYALURONATE PO SCH (21:00)
[2022-01-25] MEDS: DOCUSATE SODIUM 100 MG CAP PO SCH (21:30)
[2022-01-25] MEDS: CHOLECALCIFEROL 400 UNITS 10 MCG TAB PO SCH (21:30)
[2022-01-25] MEDS: MAGNESIUM OXIDE 400 MG TAB PO SCH (21:31)
[2022-01-26] MEDS: ceFAZolin 1000MG 1,000 MG/7.5 ML SYR IV SCH (01:46)
[2022-01-26] MEDS ORDERED: NALOXONE HCL 0.4 MG/1 ML VIAL/CARP IV PRN (04:39)
[2022-01-26] MEDS ORDERED: traMADol HCL 50 MG TABLET PO PRN (04:39)
[2022-01-26] MEDS ORDERED: METOCLOPRAMIDE HCL INJ 5 MG/ML 2 ML VIAL IV PRN (04:39)
[2022-01-26] MEDS ORDERED: ONDANSETRON INJ 2 MG/ML 2 ML VIAL IV PRN (04:39)
[2022-01-26] MEDS ORDERED: HYDROmorphone INJ 0.5 MG/0.5 ML SYR IV PRN (04:39)
[2022-01-26] MEDS: ACETAMINOPHEN 500 MG TAB PO SCH (04:52)
[2022-01-26] MEDS: KETOROLAC TROMETHAMINE 15 MG/ML VIAL IV SCH ×2 (04:53→12:38)
[2022-01-26] MEDS: Scopolamine CHECK PATCH PLACEMENT SCH (07:50)
[2022-01-26 07:58] LABS: Basophils # (auto) 0.05 K/uL (0-0.2); Basophils % (auto) 0.8 %; Eosinophils # (auto) 0.05 K/uL (0-0.50); Eosinophils % (auto) 0.8 %; Hematocrit (blood only) 24.6 % (34.1-44.9); Hemoglobin 8.1 g/dl (12.0-16.0); Immature Granulocytes # (auto) 0.03 K/uL (0.00-0.02); Immature Granulocytes % (auto) 0.5 %; Lymphocytes # (auto) 1.19 K/uL (1.2-3.4); Lymphocytes % (auto) 19.2 %; Mean Corpuscular Hemoglobin 31.6 pg (25.0-34.0); Mean Corpuscular Hgb Conc 32.9 g/dL (32.0-36.0); Mean Corpuscular Volume 96.1 fL (80.0-100.0); Mean Platelet Volume 9.1 fL (9.4-12.3); Monocytes # (auto) 0.54 K/uL (0.24-0.82); Monocytes % (auto) 8.7 %; Neutrophils # (auto) 4.35 K/uL (1.4-6.5); Platelet Count 199 K/uL (130-400); RDW Coefficient of Variation 13.2 % (11.5-14.5); RDW Standard Deviation 46.5 fL (36.4-46.3); Red Blood Count 2.56 M/uL (3.93-5.22); White Blood Count 6.21 K/ul (4.8-10.8)
[2022-01-26] MEDS ORDERED: dexAMETHasone 10 MG in SYRINGE 0 ML IV SCH (08:00)
[2022-01-26 08:25] LABS: Calcium 8.4 mg/dl (8.5-10.1); Creatinine Clr Calc Pharmacy 89.1 ml/min; Est GFR (African American) 115.3 ml/min; Est GFR (Non-African American) 99.4 ml/min; Potassium 4.1 mmol/L (3.5-5.1)
[2022-01-26] MEDS ORDERED: NON-FORMULARY MEDICATION (Multivitamin [Daily Multi-Vitamin] tablet) PO SCH (09:00)
[2022-01-26] MEDS ORDERED: NON-FORMULARY MEDICATION (Coq10 (Ubiquinol) 100 mg capsule) PO SCH (09:00)
[2022-01-26] MEDS ORDERED: NON-FORMULARY MEDICATION (Docusate Sodium 50 mg Capsule) PO SCH (09:00)
[2022-01-26] MEDS ORDERED: DOCUSATE SODIUM/SENNA 50/8.6MG TAB PO SCH (09:00)
[2022-01-26] MEDS ORDERED: NON-FORMULARY MEDICATION (Sour Cherry Extract [Tart Cherry Extract] 1,000 mg Capsule) PO SCH (09:00)
[2022-01-26] MEDS ORDERED: COLLAGEN PO SCH (09:00)
[2022-01-26] MEDS ORDERED: MULTIVITAMIN TAB PO SCH (09:00)
[2022-01-26] MEDS ORDERED: ADVANCED PROBIOTIC 1250 MG CAPSULE PO SCH (09:00)
[2022-01-26] MEDS: CHOLECALCIFEROL 400 UNITS 10 MCG TAB PO SCH (09:20)
[2022-01-26] MEDS: MAGNESIUM OXIDE 400 MG TAB PO SCH (09:21)
[2022-01-26] MEDS: ASCORBIC ACID 500 MG TAB PO SCH (09:22)
[2022-01-26] MEDS: DOCUSATE SODIUM 100 MG CAP PO SCH (09:22)
[2022-01-26] MEDS ORDERED: APIXABAN 2.5 MG TAB PO SCH (13:00)
--- NOTE | 2022-01-26 18:13 | Progress Notes ---
DATE OF SERVICE: 01/26/2022. SUBJECTIVE: A 66-year-old female postoperative day 1 from a left hip replacement. She is doing quit e well. Has not done too much walking yet today. Her night went well. Did not have much pain at al l. OBJECTIVE: VITAL SIGNS: Temperature 37.2. Vital signs are stable. PHYSICAL EXAMINATION: GENERAL: Shows a pleasant, elderly female. Lying in bed, looks comfortable. LUNGS: Clear to auscultation. HEART: Regular rate and rhythm. ABDOMEN: Soft, nontender, nondistended. EXTREMITIES: Grossly neurovascularly intact except as follows: Examination of the left leg reveals the dressing to be clean, dry and intact. Leg lengths were equal . Her hip is located. She is neurologically intact. LABORATORY DATA: Hemoglobin 8.1. Hematocrit 24.6. Electrolytes are stable. ASSESSMENT: A 66-year-old female with history of multiple infections in the past, now postoperative day 1 from a left hip replacement, doing quite well. Pain is controlled. She is neurologically inta ct. Hip is located. PLAN: 1. DVT prophylaxis includes thigh-high TEDs, SCDs and we will start back on her Eliquis 24 hours pos top. 2. PT/OT. Weight bear as tolerated. Left total hip protocol. 3. Pain control, doing well with current pain regimen. 4. Disposition: Plan to discharge to home with some home health. We will see how she does in thera py today. If she does okay, we will get her home with home health. Job ID: [id number]
[2022-01-26] MEDS ORDERED: QUEtiapine FUMARATE 25 MG TABLET PO SCH (21:00)
--- NOTE | 2022-01-27 20:46 | Discharge Summary ---
Date of Service January 27, 2022 Discharge Data Procedures Performed Operation Date: 01/03/22 10:40 <No data on this case meets the specified criteria> Operation Date: 01/25/22 10:40 Actual Procedures p Left Lateral Total Hip Arthroplasty--Uncemented(Left) - Edmond Baeaz MD Hospital Course (1) S/P total left hip arthroplasty: This is a 66 year old patient admitted on 01/25/22 and underwent total hip arthroplasty. She tolerated the procedure well and there were no complications. Transferred to the PACU post op and later to the orthopedic floor for further care. She was given ancef for antibiotic prophylaxis. She was also given CLYDE stockings, SCDs, and eliquis for DVT prophylaxis. Hemoglobin, hematocrit, and vital signs were monitored during her hospital stay and remained stable. Did not require any blood transfusions. There were no complications during her hospital stay. By post op day #1 the patient was tolerating a regular diet, pain was reasonably controlled with oral pain medicine, and she was participating in physical therapy. On post op day #1 the patient was discharged home and set up with home health care. She was given printed discharge instructions including prescriptions for extra strength tylenol, zofra senokot, and tramadol. Continue physical therapy, weight bearing as tolerated. Continue CLYDE stockings. Continue hip precautions. Follow up approximately 2 weeks post op or sooner if there are problems or concerns. Coding Level of Care Code None Diagnoses S/P total left hip arthroplasty Z96.642
== END 2022-01-26 16:20 | disposition home health service (06) ==
LOC: ASU 08:01 → PACUINP 08:01 → 3W 14:47

== ENCOUNTER 2023-06-28 14:46 | Inpatient (IN) ==
--- NOTE | 2023-06-28 15:02 | ED Triage Note ---
Date of Service June 28, 2023 Provider in Triage Author: Juan García History of Present Illness This patient was briefly evaluated while in triage. An abbreviated physical exam was performed. This patient is a 68-year-old Female who presents to the ED for evaluation Episode of acute hematemesis just prior to arrival, within the last hour. It was bright red blood at first and was black. She had a right carpal tunnel surgery performed by Dr. Baeza yesterday and was feeling well until last evening when she began to feel nauseous. She vomited once last night around 2230. Reports associated sweats and continued nausea today. She is on apixaban. Physical Exam GENERAL: NAD CARDIOVASCULAR: RRR RESPIRATORY: CTA ABDOMEN: BS x 4. Nontender to palpation. EXT: Surgical dressing on right hand. Initial orders for labs and / or imaging were placed and patient was placed in the waiting area until a bed is available. Please see further documentation for the full ED course.
[2023-06-28] MEDS: ONDANSETRON INJ 2 MG/ML 2 ML VIAL IV STA ×2 (15:15→18:22)
[2023-06-28] MEDS: SODIUM CHLORIDE 0.9% 1,000 ML IV SCH ×2 (15:15→18:22)
[2023-06-28 15:33] LABS: Basophils # (auto) 0.05 K/uL (0.00-0.20); Basophils % (auto) 0.5 %; Eosinophils # (auto) 0.13 K/uL (0.00-0.50); Eosinophils % (auto) 1.3 %; Hematocrit (blood only) 36.2 % (37.0-47.0); Hemoglobin 11.7 g/dl (12.0-16.0); Immature Granulocytes # (auto) 0.04 K/uL (0.01-0.20); Immature Granulocytes % (auto) 0.4 %; Lymphocytes # (auto) 0.94 K/uL (1.20-3.40); Lymphocytes % (auto) 9.7 %; Mean Corpuscular Hemoglobin 29.1 pg (25.0-34.0); Mean Corpuscular Hgb Conc 32.3 g/dL (32.0-36.0); Mean Platelet Volume 9.4 fL (9.4-12.4); Monocytes # (auto) 0.59 K/uL (0.11-0.59); Monocytes % (auto) 6.1 %; Neutrophils # (auto) 7.91 K/uL (1.40-6.50); Platelet Count 278 K/uL (130-400); RDW Coefficient of Variation 16.3 % (11.5-14.5); RDW Standard Deviation 54.4 fL (36.4-46.3); Red Blood Count 4.02 M/uL (4.20-5.40); White Blood Count 9.66 K/ul (4.8-10.8)
[2023-06-28 15:48] LABS: Albumin Globulin Ratio 1.6 (0.9-2); Albumin Level 4.6 gm/dl (3.4-5.0); BUN Creatinine Ratio 27.9 (10-20); Bilirubin,Total 0.4 mg/dl (0.2-1.0); Calcium 9.4 mg/dl (8.6-10.3); Creatinine Clr Calc Pharmacy 60.9 ml/min; Est GFR (African American) 102.7 ml/min; Est GFR (Non-African American) 88.6 ml/min; Globulin 2.9 gm/dl (2.5-4.0); Potassium 3.8 mmol/L (3.5-5.1); Total Protein 7.5 gm/dl (6.0-8.3)
[2023-06-28 15:52] LABS: Troponin I High Sensitivity 13.4 pg/ml (0-14)
[2023-06-28 16:10] LABS: Partial Thromboplastin Time 29 Seconds (21-31); Prothrombin Time 10.6 Seconds (9.0-12.0)
[2023-06-28] MEDS: PANTOprazole 40 MG in SYRINGE 0 ML IV ONE (17:32)
[2023-06-28] MEDS: OPTIRAY 320 500ml IV ONE (18:29)
[2023-06-28] MEDS: PANTOprazole 80 MG in DEXTROSE 5% 100 ML IV ONE (18:44)
--- NOTE | 2023-06-28 18:47 | CT Scan Report ---
ABDOMEN AND PELVIS CT WITH IV CONTRAST CT DOSE: 622.09 mGy.cm HISTORY: Nausea. Vomiting. Generalized abdominal pain. TECHNIQUE: Multiaxial CT images of the abdomen and pelvis were performed following the use of intrave nous contrast. A dose lowering technique was utilized adhering to the principles of ALARA. COMPARISON STUDY: Abdomen and pelvis CT 07/05/2021. FINDINGS: The lung bases are clear. No pneumoperitoneum. No pneumatosis. There is a left total hip ar throplasty. There is an old mild superior endplate compression deformity at L3, unchanged. No acute f ractures identified. Pacemaker wires are noted. No hepatic or splenic masses. Distended gallbladder, unchanged. No gallbladder wall thickening. The pancreas, adrenal glands, and kidneys are unremarkable . No hydronephrosis. The main portal vein is patent. Calcified plaque within the normal caliber abdom inal aorta. No retroperitoneal or pelvic lymphadenopathy. The deep pelvic structures are suboptimally assessed due to the metallic artifact from the left hip prosthesis. However, the bladder, uterus, bi lateral adnexa appear unremarkable. No pelvic free fluid. Multiple colonic diverticula. There is ques tionable subtle fat stranding at the splenic flexure of the colon which may represent the normal mese nteric vessels. This is best seen on image 54. An early acute diverticulitis is not excluded. No defi nite bowel wall thickening. No evidence for a bowel obstruction. Normal appendix. IMPRESSION: 1. Questionable subtle fat stranding at the splenic flexure of the colon may represent the normal mes enteric vessels. An early acute diverticulitis is not excluded. 2. No evidence for a bowel obstruction. 3. Normal appendix. 4. Distended gallbladder, unchanged. No gallbladder wall thickening. ACT 112: Negative or not required by law. Electronically signed by: Alex Felton M.D. 06/28/2023 6:45 PM
[2023-06-28] MEDS: PANTOprazole 40 MG in DEXTROSE 5% MINI-B 100 ML IV SCH (19:12)
[2023-06-28] MEDS: cefTRIAXone SODIUM 1,000 MG in DEXTROSE 5 % MINI-B 50 ML IV STA (20:05)
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
[2023-06-28] MEDS: metroNIDAZOLE 500 MG/100 ML BAG IV STA (21:04)
[2023-06-28] MEDS ORDERED: ACETAMINOPHEN 1000 MG/100 ML IV IV PRN (21:41)
[2023-06-28] MEDS ORDERED: ACETAMINOPHEN 1,000 MG/100 ML VIAL IV PRN (22:00)
[2023-06-28] MEDS: PANTOPRAZOLE BOLUS/DRIP IV STA (22:14)
[2023-06-28] MEDS: NSS + 20MEQ KCL 20 MEQ/1,000 ML BAG IV SCH (22:40)
[2023-06-28 22:57] LABS: Hematocrit (blood only) 29.7 % (37.0-47.0)
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
[2023-06-29 06:25] LABS: Basophils # (auto) 0.04 K/uL (0.00-0.20); Basophils % (auto) 0.6 %; Eosinophils # (auto) 0.17 K/uL (0.00-0.50); Eosinophils % (auto) 2.5 %; Hematocrit (blood only) 29.1 % (37.0-47.0); Hemoglobin 9.5 g/dl (12.0-16.0); Immature Granulocytes # (auto) 0.01 K/uL (0.01-0.20); Immature Granulocytes % (auto) 0.1 %; Lymphocytes # (auto) 0.92 K/uL (1.20-3.40); Lymphocytes % (auto) 13.5 %; Mean Corpuscular Hgb Conc 32.6 g/dL (32.0-36.0); Mean Corpuscular Volume 88.7 fL (80.0-100.0); Mean Platelet Volume 9.6 fL (9.4-12.4); Monocytes % (auto) 8.8 %; Neutrophils # (auto) 5.05 K/uL (1.40-6.50); Neutrophils % (auto) 74.5 %; Platelet Count 258 K/uL (130-400); RDW Coefficient of Variation 16.2 % (11.5-14.5); Red Blood Count 3.28 M/uL (4.20-5.40); White Blood Count 6.79 K/ul (4.8-10.8)
[2023-06-29 06:34] LABS: Albumin Level 3.9 gm/dl (3.4-5.0); BUN Creatinine Ratio 41.9 (10-20); Calcium 8.7 mg/dl (8.6-10.3); Creatinine Clr Calc Pharmacy 96.3 ml/min; Est GFR (African American) 119.4 ml/min; Est GFR (Non-African American) 103.1 ml/min; Magnesium 1.7 mg/dl (1.7-2.4); Phosphorus 2.4 mg/dl (2.5-4.9); Potassium 3.6 mmol/L (3.5-5.1)
[2023-06-29] MEDS ORDERED: traMADol HCL 50 MG TABLET PO PRN (07:13)
[2023-06-29] MEDS: ONDANSETRON INJ 2 MG/ML 2 ML VIAL IV PRN (07:21)
--- NOTE | 2023-06-29 08:02 | Electrocardiogram Report ---
Test Reason : Blood Pressure : / mmHG Vent. Rate : 076 BPM Atrial Rate : 076 BPM P-R Int : 258 ms QRS Dur : 166 ms QT Int : 426 ms P-R-T Axes : 084 -84 085 degrees QTc Int : 479 ms Atrial-sensed ventricular-paced rhythm with prolonged AV conduction Abnormal ECG When compared with ECG of 06-JUL-2021 06:41, Vent. rate has decreased BY 21 BPM Confirmed by Jace Gil ([id number]) on 06/29/2023 8:01:51 AM Referred By: Moe Cannon Confirmed By:Tima Gil
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
[2023-06-29 10:51] LABS: Hematocrit (blood only) 29.3 % (37.0-47.0); Hemoglobin 9.8 g/dl (12.0-16.0)
--- NOTE | 2023-06-29 10:58 | GI REPORT ---
Patient Name: Avril Bowen Procedure Date: 06/29/2023 10:26 AM Date of : 1955 Admit Type: Inpatient Age: 68 Gender: Female Attending MD: Terry Covington MD, Procedure: Upper GI endoscopy Providers: Terry Covington MD Referring MD: Moe Cannon Indications: Hematemesis Medicines: Monitored Anesthesia Care Complications: No immediate complications. Estimated blood loss: None. Estimated Blood Loss: Estimated blood loss: none. Procedure: Pre-Anesthesia Assessment: - Prior Anticoagulants: The patient has taken Eliquis (apixaban), last dose was 1 day prior to procedure. - ASA Grade Assessment: II - A patient with mild systemic disease. After obtaining informed consent, the endoscope was passed under direct vision. Throughout the procedure, the patient's blood pressure, pulse, and oxygen saturations were monitored continuously. The Endoscope was introduced through the mouth, and advanced to the second part of duodenum. The upper GI endoscopy was accomplished without difficulty. The patient tolerated the procedure well. Findings: The examined esophagus was normal. A Dieulafoy lesion with oozing bleeding and stigmata of recent bleeding was found in the cardia. Area was successfully injected with 2 mL of a 0.1 mg/mL solution of epinephrine for hemostasis. Coagulation for hemostasis using argon plasma at 1.2 liters/minute and 30 jimenez was unsuccessful. For hemostasis, two hemostatic clips were successfully placed. Clip nurse case management: [employer]. There was no bleeding at the end of the procedure. Estimated blood loss: none. Few non-bleeding superficial gastric ulcers with no stigmata of bleeding were found in the gastric antrum. Biopsies were taken with a cold forceps for Helicobacter pylori testing. Estimated blood loss: none. The duodenal bulb and second portion of the duodenum were normal. Impression: - Normal esophagus. - Dieulafoy lesion of stomach. - Non-bleeding gastric ulcers with no stigmata of bleeding. Biopsied. - Normal duodenal bulb and second portion of the duodenum. Recommendation: - [facility] patient [facility] for [facility] care. - Clear liquid diet today. advance tomorrow as tolerated if stable -avoid NSAIDS going forward -protonix 40 mg BID - Await pathology results. Terry Covington MD 06/29/2023 10:57:34 AM This report has been signed electronically. Note Initiated On: 06/29/2023 10:26 AM Number of Addenda: 0 I attest to the content of the Intraoperative Record and orders documented therein, exceptions below {[id number]}
[2023-06-29] MEDS: METOCLOPRAMIDE HCL INJ 5 MG/ML 2 ML VIAL IV ONE (11:29)
[2023-06-29] MEDS: ACETAMINOPHEN 1,000 MG/100 ML VIAL IV STA (11:30)
--- NOTE | 2023-06-29 12:04 | Anesthesiology Progress Note ---
Date of Service June 29, 2023 Anesthesia Post Procedure Vital Signs Vital Signs: Temp Pulse Pulse Resp BP BP Pulse Ox 06/29/23 11:28 77 18 178/88 H 100 06/29/23 11:13 81 18 152/85 H 98 06/29/23 10:58 80 16 150/80 H 100 06/29/23 09:47 36.7 C 85 16 170/78 H 97 06/29/23 08:00 84 06/29/23 07:51 36.9 C 81 19 150/91 H 99 06/29/23 02:40 36.9 C 83 18 149/90 H 99 06/29/23 02:05 76 06/28/23 23:23 36.9 C 85 18 152/75 H 97 06/28/23 21:45 75 06/28/23 21:41 36.9 C 77 18 158/88 H 97 06/28/23 21:41 36.9 C 77 18 158/88 H 97 06/28/23 20:00 77 18 169/98 H 97 06/28/23 17:48 98 06/28/23 17:37 79 06/28/23 17:27 76 18 187/87 H 98 06/28/23 15:01 36.7 C 81 20 120/78 98 O2 Del Method 06/29/23 11:28 Room Air 06/29/23 11:13 Room Air 06/29/23 10:58 Room Air 06/29/23 09:47 Room Air 06/29/23 08:00 06/29/23 07:51 Room Air 06/29/23 02:40 Room Air 06/29/23 02:05 06/28/23 23:23 Room Air 06/28/23 21:45 06/28/23 21:41 Room Air 06/28/23 21:41 Room Air 06/28/23 20:00 06/28/23 17:48 Room Air 06/28/23 17:37 06/28/23 17:27 06/28/23 15:01 Room Air Transfer of Care Handoff Completed per policy Notes Mental Status: alert / awake / arousable and participated in evaluation Nausea / Vomiting: adequately controlled Pain: adequately controlled Airway Patency, RR, SpO2: stable & adequate BP & HR: stable & adequate Hydration State: stable & adequate Anesthetic Complications: no major complications apparent and Pt Satisfied with anesthetic care
[2023-06-29] MEDS: PROPOFOL IV EMULSION 10 MG/ML 20 ML VIAL IV ONE (12:37)
[2023-06-29] MEDS: LIDOCAINE 2% 2 ML VIAL/AMP(20MG/ML) INFIL ONE (12:37)
[2023-06-29] MEDS: GABAPENTIN 300 MG CAP PO SCH (12:38)
[2023-06-29] MEDS: cefTRIAXone SODIUM 1,000 MG in DEXTROSE 5 % MINI-B 50 ML IV SCH (12:38)
[2023-06-29] MEDS: fentaNYL citrate PF 100 MCG/2 ML VIAL ONE (12:38)
--- NOTE | 2023-06-29 14:27 | Hospitalist Progress Note ---
Date of Service June 29, 2023 Assessment & Plan (1) UGIB (upper gastrointestinal bleed): Plan: Acute blood loss anemia caused by upper GI bleed Treated with IV protonix Hematocrit stable overnight EGD 06/[address] Covington - Lian lesion cauterized and clipped, several shallow nonbleeding gastric ulcers -stop meloxicam -PPI bid (2) Atrial fibrillation: Plan: History of PAF Consulted cardiology, discussed with Dr. Gil Low afib burden - none recently - recommended stopping apixaban for now and will follow up in clinic. Not on med for rate control. (3) S/P carpal tunnel release: (4) Polyarthralgia: (5) Chronic anticoagulation: (6) Pacemaker: (7) Idiopathic polyneuropathy: Plan: resumed gabapentin (8) Depression: (9) Dyslipidemia: Plan Given ceftriaxone and Flagyl IV in the ED for possible early diverticulitis read on CT, near splenic flexure. No fever or leukocytosis. She has a lot of chronic bowel symptoms though not focal pain in that location. Discussed risks/benefits of observation vs treatment with course of antibiotics. Recent outpatient trial showed that oral antibiotics did not hasten/impact the resolution of mild acute diverticulitis. She is anxious about this especially with respect to her history of liver abscess and prefers treatment. Has frequent courses of cipro for UTI and is unlikely to tolerate metronidazole wrt GI side effects so will do short course of augmentin. recommended daily miralax for chronic constipation and straining, change iron to qod, already takes fiber and probiotic Admission and Anticipated Discharge Date Admission Date: June 28, 2023 Subjective seen immediately after EGD. had nausea post procedure but impoved. Chronic constipation and straining but no abdominal pain. dark stool recently, is on mobic and iron Physical Exam 2 Physical Exam: PHYSICAL EXAMINATION Last 24h vital signs reviewed, see documentation in flowsheet General: comfortable appearing, no distress HEENT: Normocephalic, atraumatic, pupils round and equal, sclerae anicteric, no conjunctival injection, moist mucus membranes Lungs: Normal respiratory effort. Clear to auscultation bilaterally. No RRW Heart: Regular rate and rhythm, no murmurs. No JVD Abdomen: Soft, nontender, nondistended. Bowel sounds present. Extremities: Warm, dry, well-perfused. No extremity edema. Neuro: Alert and oriented x 4, face symmetric, moves 4 extremities well Psych: Normal affect and behavior Results & Data Results & Data Vital Signs (Past 12 Hours) Vital Signs Temp Pulse Pulse Resp BP Pulse Ox O2 Del Method 06/29/23 11:28 77 18 178/88 H 100 Room Air 06/29/23 11:13 81 18 152/85 H 98 Room Air 06/29/23 10:58 80 16 150/80 H 100 Room Air 06/29/23 09:47 36.7 C 85 16 170/78 H 97 Room Air 06/29/23 08:00 84 06/29/23 07:51 36.9 C 81 19 150/91 H 99 Room Air 06/29/23 02:40 36.9 C 83 18 149/90 H 99 Room Air Laboratory Results 06/29/23 09:30 06/29/23 05:23 PG Care Time/CCT Total # of Minutes Spent Total Time Spent with Patient: Total time spent is greater than 50% in coordination of care (as documented) at patient's floor/unit and/or counseling patient: Coding Level of Care Code 79133 SUB INP/OBS CARE 2/35MIN Diagnoses UGIB (upper gastrointestinal bleed) K92.2 Atrial fibrillation I48.91 S/P carpal tunnel release Z98.890 Polyarthralgia M25.50 Chronic anticoagulation Z79.01 Pacemaker Z95.0 Idiopathic polyneuropathy G60.9 Depression F32.9 Dyslipidemia E78.5
[2023-06-29] MEDS: MAGNESIUM OXIDE 400 MG TAB PO SCH (20:13)
[2023-06-29] MEDS: QUEtiapine FUMARATE 25 MG TABLET PO SCH (20:13)
[2023-06-29] MEDS: PANTOprazole 40 MG TAB PO SCH (21:06)
[2023-06-30 06:15] LABS: Basophils # (auto) 0.06 K/uL (0.00-0.20); Eosinophils # (auto) 0.69 K/uL (0.00-0.50); Eosinophils % (auto) 11.4 %; Hematocrit (blood only) 24.6 % (37.0-47.0); Hemoglobin 8.4 g/dl (12.0-16.0); Immature Granulocytes # (auto) 0.01 K/uL (0.01-0.20); Immature Granulocytes % (auto) 0.2 %; Lymphocytes # (auto) 1.63 K/uL (1.20-3.40); Mean Corpuscular Hemoglobin 30.3 pg (25.0-34.0); Mean Corpuscular Hgb Conc 34.1 g/dL (32.0-36.0); Mean Corpuscular Volume 88.8 fL (80.0-100.0); Mean Platelet Volume 9.5 fL (9.4-12.4); Monocytes # (auto) 0.61 K/uL (0.11-0.59); Monocytes % (auto) 10.1 %; Neutrophils # (auto) 3.03 K/uL (1.40-6.50); Neutrophils % (auto) 50.3 %; Platelet Count 235 K/uL (130-400); RDW Coefficient of Variation 16.7 % (11.5-14.5); Red Blood Count 2.77 M/uL (4.20-5.40); White Blood Count 6.03 K/ul (4.8-10.8)
[2023-06-30 06:35] LABS: Albumin Level 3.6 gm/dl (3.4-5.0); BUN Creatinine Ratio 18.5 (10-20); Calcium 8.4 mg/dl (8.6-10.3); Creatinine Clr Calc Pharmacy 76.7 ml/min; Est GFR (African American) 110.8 ml/min; Est GFR (Non-African American) 95.6 ml/min; Magnesium 1.8 mg/dl (1.7-2.4); Potassium 3.9 mmol/L (3.5-5.1)
[2023-06-30] MEDS: AMOXICILLIN/CLAVULANATE 875 MG TAB PO SCH (08:20)
[2023-06-30 09:40] LABS: Hematocrit (blood only) 26.1 % (37.0-47.0); Hemoglobin 8.7 g/dl (12.0-16.0)
--- NOTE | 2023-06-30 10:10 | Gastroenterology Progress Note ---
Date of Service June 30, 2023 Assessment & Plan (1) Dieulafoy lesion (hemorrhagic) of stomach and duodenum: (2) UGIB (upper gastrointestinal bleed): (3) ABLA (acute blood loss anemia): Plan: Continue Pantoprazole 40 mg PO BID Advance diet as tolerated Avoid NSAID use, as she was taking Meloxicam and Excedrin daily Resume Eliquis therapy in 3 days F/U as outpatient to monitor response to therapy. Admission and Anticipated Discharge Date Admission Date: June 28, 2023 Subjective Feeling much better today. No evidence of overt GI bleeding. No BM's overnight. No hematemesis. States that she if having no abdominal pain at this time. Review of Systems Review of Systems: All systems reviewed & are unremarkable except as noted in Subjective Physical Exam Constitutional: WD/WN, vitals as above Respiratory: normal respiratory effort, lungs clear to auscultation Cardiovascular: RRR, no murmur, no edema Gastrointestinal (Abdomen): normal bowel sounds, soft, nontender, no hepatosplenomegaly Skin: no rashes, warm and dry Psychiatric: A+Ox3, euthymic affect Results & Data Results & Data Vital Signs (Past 12 Hours) Vital Signs Temp Pulse Pulse Resp BP BP Pulse Ox 06/30/23 07:27 37.0 C 77 18 136/76 98 06/30/23 07:00 74 06/30/23 03:03 37.0 C 79 18 124/62 94 06/30/23 01:00 91 H 06/29/23 22:39 37.0 C 78 16 123/74 94 O2 Del Method 06/30/23 07:27 Room Air 06/30/23 07:00 06/30/23 03:03 Room Air 06/30/23 01:00 06/29/23 22:39 Room Air PG Care Time/CCT Total # of Minutes Spent Total Time Spent with Patient: Total time spent is greater than 50% in coordination of care (as documented) at patient's floor/unit and/or counseling patient: Coding Level of Care Code 72141 SUB INP/OBS CARE 3/50MIN Diagnoses Dieulafoy lesion (hemorrhagic) of stomach and duodenum K31.82 UGIB (upper gastrointestinal bleed) K92.2 ABLA (acute blood loss anemia) D62
--- NOTE | 2023-06-30 14:50 | Discharge Summary ---
Date of Service June 30, 2023 Admission HPI Per Admitting Provider The patient is a 68-year-old female with a past medical history including left total hip arthroplasty, atrial fibrillation, liver abscess, urinary tract infection, irritable bowel syndrome, presence of pacemaker, idiopathic polyneuropathy, osteoarthritis, dyslipidemia and depression. Patient reports that she underwent a right carpal tunnel release by Dr. Baeza the previous day, and did well with the surgery. Last evening she started noticing some nausea and had difficulty sleeping most of the night. When she got up this morning she had an episode of abdominal pain, nausea and a small amount of blood in emesis. Later on in the morning she developed a recurrent episode of vomiting which was pure blood. She reports that she called Dr. Baeza's office, and was advised to come to the emergency department for assessment. Of note, patient has been taking meloxicam regularly for the past 5 years or so due to generalized osteoarthritis pains. She had been started on Eliquis after being found to be in atrial fibrillation when she was being treated for a liver abscess in August 2021, and reports that Dr. Gil felt that she would be best to continue on Eliquis. Her last dose of Eliquis was the evening before her carpal tunnel release surgery 2 nights ago Principal Diagnosis Acute upper GI bleeding due to Dieulafoy lesion of the stomach Discharge Exam PHYSICAL EXAMINATION Last 24h vital signs reviewed, see documentation in flowsheet General: comfortable appearing, no distress HEENT: Normocephalic, atraumatic, pupils round and equal, sclerae anicteric, no conjunctival injection, moist mucus membranes Lungs: Normal respiratory effort. Clear to auscultation bilaterally. No RRW Heart: Regular rate and rhythm, no murmurs. No JVD Abdomen: Soft, nontender, nondistended. No LUQ tenderness. Bowel sounds present. Extremities: Warm, dry, well-perfused. No extremity edema. Neuro: Alert and oriented x 4, face symmetric, moves 4 extremities well Psych: Normal affect and behavior Discharge Data Allergies Allergy/AdvReac Type Severity Reaction Status Date / Time No Known Allergies Allergy Verified 06/28/23 20:41 Consultations 06/28/23 18:54 ED Decision to Admit Stat 06/28/23 21:41 Consult Cardiology Routine Consult Gastroenterology Routine Procedures Performed Operation Date: 06/29/23 17:45 <No data on this case meets the specified criteria> Ordered Studies 06/28/23 18:03 CT abd pelvis IV con only Stat Abdomen/Pelvis CT 06/28/23 18:[address] WITH IV CONTRAST CT DOSE: 622.09 mGy.cm HISTORY: Nausea. Vomiting. Generalized abdominal pain. TECHNIQUE: Multiaxial CT images of the abdomen and pelvis were performed following the use of intravenous contrast. A dose lowering technique was utilized adhering to the principles of ALARA. COMPARISON STUDY: Abdomen and pelvis CT 07/05/2021. FINDINGS: The lung bases are clear. No pneumoperitoneum. No pneumatosis. There is a left total hip arthroplasty. There is an old mild superior endplate compression deformity at L3, unchanged. No acute fractures identified. Pacemaker wires are noted. No hepatic or splenic masses. Distended gallbladder, unchanged. No gallbladder wall thickening. The pancreas, adrenal glands, and kidneys are unremarkable. No hydronephrosis. The main portal vein is patent. Calcified plaque within the normal caliber abdominal aorta. No retroperitoneal or pelvic lymphadenopathy. The deep pelvic structures are suboptimally assessed due to the metallic artifact from the left hip prosthesis. However, the bladder, uterus, bilateral adnexa appear unremarkable. No pelvic free fluid. Multiple colonic diverticula. There is questionable subtle fat stranding at the splenic flexure of the colon which may represent the normal mesenteric vessels. This is best seen on image 54. An early acute diverticulitis is not excluded. No definite bowel wall thickening. No evidence for a bowel obstruction. Normal appendix. IMPRESSION: 1. Questionable subtle fat stranding at the splenic flexure of the colon may represent the normal mesenteric vessels. An early acute diverticulitis is not excluded. 2. No evidence for a bowel obstruction. 3. Normal appendix. 4. Distended gallbladder, unchanged. No gallbladder wall thickening. ACT 112: Negative or not required by law. Electronically signed by: Alex Felton M.D. 06/28/2023 6:45 PM 06/30/23 09:15 06/30/23 05:28 Hospital Course (1) UGIB (upper gastrointestinal bleed): Acute blood loss anemia caused by upper GI bleed Treated with IV protonix Hematocrit stable after initial drop EGD 06/[address] Adria Bael lesion cauterized and clipped, several shallow nonbleeding gastric ulcers probably related to meloxicam, biopsy pending for H. pylori -stop meloxicam -cardiology advised stopping apixaban (see below) -PPI bid x 8 weeks minimum -continue oral iron supplement (already takes) -recheck CBC in about a month -follow up in GI clinic and with primary care -discussed with Dr. Brownlee (2) Atrial fibrillation: History of PAF Consulted cardiology, discussed with Dr. Gil Low afib burden - none recently - recommended stopping apixaban for now and will follow up in clinic. Not on med for rate control. (3) S/P carpal tunnel release: (4) Polyarthralgia: (5) Chronic anticoagulation: (6) Pacemaker: (7) Idiopathic polyneuropathy: resumed gabapentin (8) Depression: (9) Dyslipidemia: Plan Given ceftriaxone and Flagyl IV in the ED for possible early diverticulitis read on CT, near splenic flexure. No fever or leukocytosis. She has a lot of chronic bowel symptoms though not focal pain in that location. Discussed risks/benefits of observation vs treatment with course of antibiotics. Recent outpatient trial showed that oral antibiotics did not hasten/impact the resolution of mild acute diverticulitis. She is anxious about this especially with respect to her history of liver abscess and prefers treatment. Has frequent courses of cipro for UTI and is unlikely to tolerate metronidazole wrt GI side effects so will do short course of augmentin. recommended daily miralax for chronic constipation and straining, change iron to qod, already takes fiber and probiotic Total Time Total Time Spent Total Time Spent (In Minutes): I personally spent: 35 minutes today on clinical care activities including: reviewing chart notes and vital signs reviewing labs discussion with library sales consultant examining and counseling the patient writing orders documentation Discharge Plan Discharge Items Patient Disposition: Home - Self-Care Reason For Visit: UGI BLEED, HEMATEMESIS Discharge Diagnosis: upper GI bleed secondary to Dieulafoy lesion, nsaid related gastric ulcers Activity: Resume your previous activity Non-emergency contact: Primary Care Provider and Marketing Analyst Call non-emergency contact if: you have any medication questions Follow-up/Referrals: Moe Cannon III, CRNP [Primary Care Provider] - Terry Covington MD [Physician] - Diet: Regular Addtl Attending Provider Instructions: You were treated for upper GI bleeding This was caused by an abnormal blood vessel that was coursing near the surface of the stomach - this was cauterized and clipped. You also had some shallow ulcerations in your stomach likely related to meloxicam -stop meloxicam and stop apixaban, acetaminophen and voltaren (diclofenac) gel are safe to use for arthritis -follow up with consulting practice manager as scheduled to discuss your A fib. -take pantoprazole (or formulary equivalent) for stomach acid suppression twice a day for minimum of 8 weeks to heal the stomach -the racing manager took some biopsies to check for H. pylori -schedule follow up in gastroenterology clinic and primary care soon - have your blood count checked in about a month to see if anemia resolving -if oral iron is too constipating you can try taking it every other day. iron will make your stools dark -try to increase iron in your diet -you will probably have dark stools for a few more days because of old blood in your system, but it should be progressively getting less -seek medical attention if you have recurrent bleeding - bloody stools, worsening tarry black stools We will treat you with a week of oral antibiotic for possible diverticulitis seen on abdominal CT scan, though I am not convinced that you have this. It may just be an artifact on the scan. Pending Studies at Discharge: No Stand-Alone Forms: My [facility] [employer], Smoking Cessation Medications and DC Order Prescriptions: New amoxicillin-pot clavulanate 875-125 mg Tablet 1 tab PO BIDM Qty: 11 0RF pantoprazole 40 mg Tablet,Delayed Release (Dr/Ec) 40 mg PO BID Qty: 60 0RF Continued ferrous sulfate 325 mg (65 mg iron) tablet 325 mg PO DAILY Qty: 30 0RF quetiapine [Seroquel] 25 mg tablet 25 mg PO HS Qty: 30 3RF [id number] 1 tab PO BID multivitamin [Daily Multi-Vitamin] Tablet 1 tab PO QAM omega 3,6,9 combination no.7 92 mg (43 mg-22 [id number]) tablet,chewable 92 mg PO BID cranberry 400 mg capsule 400 mg PO QAM Rx Instructions: administer with a meal coQ10 (ubiquinol) 100 mg capsule 100 mg PO QAM glucosamine-chondroitin 900 mg tablet 900 mg PO BID acetaminophen [Tylenol Arthritis Pain] 650 mg tablet extended release 1,300 mg PO Q8H psyllium [Metamucil] 1 dose PO TID Rx Instructions: Patient states she takes 3 gummies once a day diclofenac sodium 1 % gel 2 g topical QID PRN (Reason: Pain) Rx Instructions: apply to single elbow, wrist or hand; for hand includes palm/fingers/back of hand ascorbic acid (vitamin C) 500 mg capsule 500 mg PO QAM black cohosh 540 mg capsule 20 mg PO DAILY colon cleanse 1 dose PO UD Rx Instructions: TAKES TWICE PER WEEK new life formula 1 tab PO DAILY hyalur ac-chond sul-colg II-AA 40-80-400 mg capsule 1 cap PO BID triamcinolone acetonide 0.1 % cream 1 applic topical BID PRN (Reason: SKIN IRRITATION ) Rx Instructions: Patient states she applies to affected areas as needed gabapentin 300 mg capsule 300 mg PO TID Qty: 90 5RF Probiotic 10 billion cell Capsule 10,000 mmu cells PO QAM Excedrin Extra Strength 250-250-65 mg Tablet 1 tab PO Q6H PRN (Reason: Headache) magnesium 200 mg Tablet 200 mg PO BID green tea extract 500 mg Capsule 500 mg PO BID Tart Ingram Extract 1,000 mg Capsule 1,000 mg PO QAM Powder Collagen 1 dose PO QAM Patient Comments: 1 SCOOP DAILY calcium 250 mg Tablet 250 mg PO QAM vitamin B complex Tablet 1 tab PO UD Lung Essential 1 tab PO QAM Adrenal Essential 1 dose PO DAILY Liver Essential 1 tab PO DAILY tramadol 50 mg tablet 50 mg PO Q6H PRN (Reason: pain) Qty: 12 0RF Discontinued Eliquis 5 mg tablet 5 mg PO BID Qty: 180 3RF meloxicam 15 mg tablet See Rx Instructions .ROUTE .COMPLEX Qty: 90 0RF Dose Instruction: Take 1 tablet by mouth once daily Rx Instructions: Take 1 tablet by mouth once daily Discharge Orders: Discharge Order (Routine); Ordered 06/30/23 Ordered By: Rehana Ang Admission Data Admit Date/Time: 06/28/23 20:11 Attending Provider: Rehana Ang Admit Provider: Marvel Barajas Primary Care Provider: Moe Cannon III Other Providers: Marvel Barajas; Miguel Little; Britany Tucker Other Interventions: Discharge Summary Assessment (RN) Last Done: 06/29/23 11:06 Coding Level of Care Code 67846 INP/OBS DISCH >30 MIN Diagnoses UGIB (upper gastrointestinal bleed) K92.2 Atrial fibrillation I48.91 S/P carpal tunnel release Z98.890 Polyarthralgia M25.50 Chronic anticoagulation Z79.01 Pacemaker Z95.0 Idiopathic polyneuropathy G60.9 Depression F32.9 Dyslipidemia E78.5
== END 2023-06-30 15:42 | disposition home or self-care (01) | DRG 378 ==
LOC: ED 14:46 → 2E 20:11 → SUATTDRO 20:11 → 2E 21:37